=== PATIENT | male | born 1950 | race Caucasian/White ===

== ENCOUNTER 2017-07-12 03:17 | Observation (INO) | payer MEDICARE ==
[2017-07-12 03:56] LABS: #Basophils 0.1 thou/uL (0.0-0.2); #Eosinphils 0.3 thou/uL (0.0-0.7); #Lymphocytes 2.6 thou/uL (1.20-3.40); #Monocytes 1.2 thou/uL (0.11-0.59); #Neutrophils 6.1 thou/uL (1.40-6.50); %Basophils 0.6 % (0.0-1.0); %Eosinophils 2.5 % (0.0-10.0); %Lymphocytes 25.7 % (21.0-51.0); %Monocytes 11.6 % (0.0-10.0); Hematocrit 39.5 % (42.0-52.0); Mean Platelet Volume 8.4 fL (7.4-10.4); Red Blood Cell (RBC) Count 3.79 mill/uL (4.70-6.10); White Blood Cell (WBC) Count 10.2 thou/uL (4.8-10.8)
[2017-07-12 04:01] LABS: ALT (SGPT) 10 U/L (8-55); AST (SGOT) 18 U/L (5-34); Alkaline Phosphatase 123 U/L (40-150); Anion Gap 11 mmol/L (10-20); BUN (Urea Nitrogen) 27 mg/dL (8.4-25.7); Bilirubin, Total 0.5 mg/dL (0.2-1.2); CK (CPK) 124 U/L (30-200); Calc. Creatinine Clearance 0 mL/min (70-130); Calcium 8.9 mg/dL (7.8-10.44); Carbon Dioxide 26 mmol/L (23-31); Chloride 106 mmol/L (98-107); Estimated GFR-MDRD 27; Globulin 2.8 g/dL (2.4-3.5); Protein, Total 6.6 g/dL (5.8-8.1)
[2017-07-12 04:05] LABS: Troponin I Less than 0.010 ng/mL (< 0.028)
--- NOTE | 2017-07-12 06:48 | HP ---
PRIMARY CARE PHYSICIAN: Alcira Capellan, Family Nurse Practitioner. REASON FOR ADMISSION: Chronic obstructive pulmonary disease exacerbation. HISTORY OF PRESENT ILLNESS: A 66-year-old male with a history of COPD as well as ongoing tobacco ab use disorder who came to the emergency room with gradually worsening shortness of breath. Patient r eports that for the last 3 days, he has increasing shortness of breath. He has nasal congestion and he was feeling chest congestion. He was having cough productive of yellowish white sputum. He den ies any hemoptysis. He was also hurting all over his body. He denies any fever. He denies any flu -like illness. He denies any sick exposure. His symptoms the day by day getting worse and last nig ht, he was not able to breathe at all. He was not able to take deep breath through his nose and his nose was stuffed up and he was also feeling chest tightness because of difficulty breathing. He wa s not able to lie down in his bed and that is why he called paramedics and paramedics brought him to the emergency room. In the emergency room, this patient appeared in mild respiratory distress. Paramedics gave him Solu -Medrol 125 mg and subsequently in the emergency room, patient has received aspirin. Patient denies any exertional chest pain, palpitation. The patient denies any constipation, diarrhea, or urinary tract infection symptoms. REVIEW OF SYSTEMS: The following complete review of systems was negative, unless otherwise mentione d in the HPI or below: Constitutional: Weight loss or gain, ability to conduct usual activities. Skin: Rash, itching. Eyes: Double vision, pain. ENT/Mouth: Nose bleeding, neck stiffness, pain, tenderness. Cardiovascular: Palpitations, dyspnea on exertion, orthopnea. Respiratory: Shortness of breath, wheezing, cough, hemoptysis, fever or night sweats. Gastrointestinal: Poor appetite, abdominal pain, heartburn, nausea, vomiting, constipation, or diar timo. Genitourinary: Urgency, frequency, dysuria, nocturia. Musculoskeletal: Pain, swelling. Neurologic/Psychiatric: Anxiety, depression. Allergy/Immunologic: Skin rash, bleeding tendency. Please see my HPI for pertinent positives and negatives. All other review of system reviewed and ne gative except as mentioned in the HPI. PAST MEDICAL HISTORY: Hypertension, seizure disorder, history of sleep apnea required uvulectomy, g astroesophageal reflux disease, history of stroke in 2006 that led to visual problem in the right ey e, history of renal cell carcinoma required right nephrectomy, coronary artery disease, chronic obst ructive pulmonary disease, ongoing tobacco abuse disorder, dyslipidemia, systemic lupus erythematos us, peripheral neuropathy. PAST PSYCHIATRIC HISTORY: Anxiety, depression. PAST SURGICAL HISTORY: Pacemaker/AICD placement, appendicectomy, right nephrectomy, cardiac cathete rization, uvulectomy for sleep apnea, surgery for deviated nasal septum. ALLERGIES: SULFA DRUGS and PENICILLIN. SOCIAL HISTORY: Patient is an active smoker about 1 pack per day. He denies any alcohol abuse. He denies any other illicit drug abuse. He lives with his , daughter, and 4 grandkids. FAMILY HISTORY: Positive for diabetes, heart disease among several family members. EMERGENCY ROOM COURSE: Patient is given aspirin and paramedics gave him Solu-Medrol 125 mg. CURRENT HOME MEDICATIONS: Albuterol nebulization 4 times daily, Symbicort 2 puff inhalation b.i.d., Valsartan 80 mg p.o. daily, Keppra 500 mg p.o. b.i.d., Plavix 75 mg p.o. daily, Dilantin 200 mg twi ce daily, Cymbalta 30 mg p.o. twice daily. PHYSICAL EXAMINATION: VITAL SIGNS: On arrival, blood pressure 147/86, pulse 71, respiratory rate 22, temperature 98.0, sa turation 95% on room air, weight 91.17 kilograms. GENERAL: Patient is currently alert, awake, no obvious acute distress. HEAD: Normocephalic, atraumatic. EYES: Pupils round, reactive to light. Extraocular muscles intact. ENT: Stuffy nose with clear discharge. No pharyngeal erythema, no exudate, ear normal. NECK: No JVD, no thyromegaly, no carotid bruits. LUNGS: Air entry reduced both sides. No obvious rhonchi or wheeze. No accessory muscles of respir ation in use. CARDIAC: S1, S2 regular without any murmur. ABDOMEN: Soft, bowel sounds present, nontender, nondistended. No organomegaly, no mass, no suprapu bic tenderness. BACK: Unremarkable, no CVA tenderness. EXTREMITIES: Upper extremity: Passive movement of all joints are normal. Lower extremities: No e clau. Good peripheral pulsation. SKIN: No skin rash. HEMATOLOGICAL: No lymphadenopathy. PSYCHIATRIC: Normal affect. NEUROLOGIC: Nonfocal examination. SIGNIFICANT LABORATORY DATA: EKG showing pacemaker rhythm, right bundle branch block pattern. Ches t x-ray based on my review, no pneumonia, no acute cardiopulmonary process. CBC: WBC 10.2, hemoglo bin 12.9, MCV 104.0, platelets 145. BMP shows sodium 139, potassium 4.0, chloride 106, carbon dioxi de 26, BUN 27, creatinine 2.42, glucose 119, calcium 8.9. LFTs: AST 18, ALT 10, alkaline phosphata se 123, albumin 3.8, CK 124, CK-MB 1.9, troponin I less than 0.010. BNP 98.1. ASSESSMENT AND PLAN: 1. Chronic obstructive pulmonary disease exacerbation. This patient has dyspnea worsening for the last 3 days and last night he had very bad episode. He has chronic obstructive pulmonary disease hi story and he has ongoing tobacco abuse disorder. He also suffering from viral infection. At this p oint, patient will require DuoNeb therapy q.6 hours, Solu-Medrol 40 mg IV q.6 hourly, Mucinex 600 mg twice daily, Claritin 10 mg p.o. daily, empiric antibiotic therapy with Levaquin 250 mg IV daily. We will monitor his oxygen saturation. Smoking cessation counseling given. 2. Chest discomfort/chest tightness, likely related with his chronic obstructive pulmonary disease flare up, but we will do 3 sets of cardiac enzymes to rule out acute coronary syndrome. 3. Tobacco abuse disorder. Smoking cessation counseling given. We will offer nicotine replacement therapy while in hospital. 4. Seizure disorder. We will continue Keppra 500 mg twice daily and Dilantin 200 mg twice daily. 5. Hypertension. We will continue Valsartan 80 mg p.o. daily. 6. Anxiety and depression. We will continue Cymbalta 30 mg twice daily. 7. Coronary artery disease/history of cerebrovascular accident. We will continue Plavix 75 mg p.o. daily. 8. Chronic kidney disease stage 4. Patient has gradually worsening renal insufficiency. We will a void nephrotoxic agents and we will repeat BMP tomorrow. 9. Anemia with macrocytosis. We will start folic acid and vitamin B12 therapy. 10. Deep venous thrombosis prophylaxis not needed because we are expecting discharge in 24-48 hours . 11. Allergic rhinitis. We will start Flonase nasal spray twice daily. 12. Code status: The patient is FULL CODE. The patient's is surrogate decision maker. Disposition and plan based on clinical course. Plan of care discussed with the patient in detail.
[2017-07-12] MEDS ORDERED: Milk Of Magnesia 30 ML UDCUP PO PRN (07:08)
[2017-07-12] MEDS ORDERED: Sodium Chloride 0.65% Nasal 44 ML BOT EA NARE PRN (07:08)
[2017-07-12] MEDS ORDERED: Zolpidem Tartrate 5 MG TAB PO PRN (07:08)
[2017-07-12] MEDS ORDERED: Acetaminophen 325 MG TAB PO PRN (07:08)
[2017-07-12] MEDS ORDERED: Artificial Tears 18 DROP/0.9 ML EA EYE PRN (07:08)
[2017-07-12] MEDS ORDERED: Eucerin (Mineral Oil/Petrolatum,White) 30 gm Jar TOP PRN (07:08)
[2017-07-12] MEDS ORDERED: Ondansetron HCl/PF 4 MG/2 ML Vial IVP PRN (07:08)
[2017-07-12] MEDS ORDERED: Ondansetron ODT 4 MG TAB PO PRN (07:08)
[2017-07-12] MEDS ORDERED: Mag-Al 1200 mg/1200 mg/30 ML UDCUP PO PRN (07:08)
[2017-07-12] MEDS ORDERED: Loperamide HCl 2 MG CAP PO PRN (07:08)
[2017-07-12] MEDS ORDERED: Senokot 8.6 MG TAB PO PRN (07:08)
[2017-07-12] MEDS ORDERED: Chloraseptic Spray 180 ml Bottle PO PRN (07:08)
[2017-07-12] MEDS ORDERED: HYDROcodone/Acetaminophen 5/325 mg Tablet PO PRN (07:08)
[2017-07-12] MEDS ORDERED: hydrALAZINE 20 MG/ML VIAL SLOW IVP PRN (07:08)
[2017-07-12] MEDS ORDERED: Diabetic Tussin 200 MG/10 ML UDCUP PO PRN (07:08)
[2017-07-12] MEDS ORDERED: Nitroglycerin 0.4 MG TAB (25 Tab Bottle) SL PRN (07:08)
[2017-07-12] MEDS ORDERED: Benzonatate 100 MG CAP PO PRN (07:08)
[2017-07-12 07:09] VITALS: BMI 27.7
[2017-07-12 08:10] LABS: Troponin I Less than 0.010 ng/mL (< 0.028)
[2017-07-12] MEDS ORDERED: FLU VACC TS2017-18 (>65YR) 0.5 ML SYRINGE IM ONE (09:00)
[2017-07-12] MEDS: Levofloxacin/D5W 250 MG in Premix Bag 1 BAG IVPB SCH (09:02)
[2017-07-12] MEDS: Folic Acid 1 MG TAB PO SCH (09:08)
[2017-07-12] MEDS: Clopidogrel Bisulfate 75 MG TAB PO SCH (09:08)
[2017-07-12] MEDS: guaiFENesin ER 600 MG TAB PO SCH ×2 (09:08→20:00)
[2017-07-12] MEDS: Cyanocobalamin (Vitamin B-12) 1,000 MCG TAB PO SCH (09:08)
[2017-07-12] MEDS: Loratadine 10 MG TAB PO SCH (09:09)
[2017-07-12] MEDS: Phenytoin 50 MG Chewable Tablet PO SCH ×2 (09:09→20:00)
[2017-07-12] MEDS: levETIRAcetam 500 MG TAB PO SCH ×2 (09:09→20:00)
[2017-07-12] MEDS: Valsartan 80 MG TAB PO SCH (09:10)
--- NOTE | 2017-07-12 09:26 | RAD ---
CHEST 1 VIEW: HISTORY: Cough and dyspnea. COMPARISON: 06/24/17. FINDINGS: Cardiac silhouette is magnified by projection. Pulmonary vasculature is unremarkable. Mediastinum is midline with a dual-lead left subclavian cardiac electronic device. There is no lobar consolidat ion or evidence of pneumothorax. IMPRESSION: No active cardiopulmonary abnormalities are demonstrated. POS: PAPA
--- NOTE | 2017-07-12 10:18 | PDOC.EVN ---
Event Note - Event Note Event Note: Pt seen and examined. chart reviewed in detail. Admitted earlier today for Ac resp distress due to COPD exacerbation. reports feeling better.some stuffy nose. VSS. CTA B/l w/o wheezing. decreased air entry both sides. RRR labs,meds reviewed. Influenza test negative Plan-cont nebs.Cont IV steroids,empiric antibiotics. Monitor renal function. Cont home meds as started. reviewed.
[2017-07-12 10:26] LABS: Troponin I Less than 0.010 ng/mL (< 0.028)
[2017-07-12] MEDS: Fluticasone Propionate Nasal Spray 16 gm Bottle NASAL SCH ×2 (11:32→20:00)
[2017-07-12] MEDS ORDERED: methylPREDNISolone Sod Succ/PF 125 MG/2 ML VIAL IVP SCH (12:00)
[2017-07-12] MEDS ORDERED: Sterile Water 10 ML ONE (17:40)
[2017-07-12] MEDS: Mometasone/Formoterol 120 PUFF INHALER INH SCH (20:22)
[2017-07-12] MEDS ORDERED: DULOXETINE HCL 30 MG PO SCH (21:00)
[2017-07-13 04:38] LABS: #Lymphocytes 0.8 thou/uL (1.20-3.40); #Monocytes 0.5 thou/uL (0.11-0.59); #Neutrophils 7.4 thou/uL (1.40-6.50); %Basophils 0.2 % (0.0-1.0); %Eosinophils 0.1 % (0.0-10.0); %Monocytes 5.9 % (0.0-10.0); Hematocrit 38.6 % (42.0-52.0); Mean Platelet Volume 8.9 fL (7.4-10.4); Red Blood Cell (RBC) Count 3.66 mill/uL (4.70-6.10); White Blood Cell (WBC) Count 8.8 thou/uL (4.8-10.8)
[2017-07-13 04:39] LABS: Anion Gap 8 mmol/L (10-20); BUN (Urea Nitrogen) 32 mg/dL (8.4-25.7); BUN/Creatinine Ratio 15.92; Calc. Creatinine Clearance 46 mL/min (70-130); Calcium 8.9 mg/dL (7.8-10.44); Carbon Dioxide 28 mmol/L (23-31); Chloride 107 mmol/L (98-107); Estimated GFR-MDRD 33; Phosphorus 3.9 mg/dL (2.3-4.7)
[2017-07-13] MEDS: Mometasone/Formoterol 120 PUFF INHALER INH SCH (06:42)
[2017-07-13 08:01] VITALS: BP 150/74; TEMP 97.8
[2017-07-13] MEDS: Fluticasone Propionate Nasal Spray 16 gm Bottle NASAL SCH (09:01)
[2017-07-13] MEDS: Levofloxacin/D5W 250 MG in Premix Bag 1 BAG IVPB SCH (09:02)
[2017-07-13] MEDS: Phenytoin 50 MG Chewable Tablet PO SCH (09:02)
[2017-07-13] MEDS: Cyanocobalamin (Vitamin B-12) 1,000 MCG TAB PO SCH (09:03)
[2017-07-13] MEDS: Loratadine 10 MG TAB PO SCH (09:04)
[2017-07-13] MEDS: Clopidogrel Bisulfate 75 MG TAB PO SCH (09:04)
[2017-07-13] MEDS: Folic Acid 1 MG TAB PO SCH (09:04)
[2017-07-13] MEDS: Valsartan 80 MG TAB PO SCH (09:04)
[2017-07-13] MEDS: guaiFENesin ER 600 MG TAB PO SCH (09:04)
[2017-07-13] MEDS: levETIRAcetam 500 MG TAB PO SCH (09:04)
--- NOTE | 2017-07-13 10:46 | DIS ---
TRANSFER OF CARE NOTE PRIMARY CARE PROVIDER: Alcira López DATE OF ADMISSION: 07/12/2017 DATE OF DISCHARGE: 07/13/2017 DISCHARGE DISPOSITION: Home. FINAL DIAGNOSES: 1. Chronic obstructive pulmonary disease with mild exacerbation. 2. Seizure disorder. 3. Hypertension. 4. Chronic kidney disease stage 4. The patient admitted with medications new Z-ADRYAN, Levetiracetam 500 mg twice a day, valsartan 80 mg a day, Cymbalta 30 mg twice a day, Plavix 75 mg a day, Dilantin 200 mg twice a day. ALLERGIES: SULFA and PENICILLIN. PENDING AT THE TIME OF DISCHARGE: Nothing. CODE STATUS: Full. HOSPITAL COURSE: The patient admitted with some shortness of breath, nasal congestion, chest conges tion. His chest x-ray reveals pacemaker in the left upper quadrant, some mild hyperinflation, no ca rdiomegaly, no infiltrate. LABORATORY: His creatinine was 2.42 and 2.01. Electrolytes otherwise balanced. Cardiac enzymes no rmal x3. White count was normal, hemoglobin was mildly low at 12.9 and 12.7. I saw the patient this morning, he stated that he blew a bunch of yellow stuff out of his nose, felt fine. He stated his doctor normally gives him a Z-ADRYAN and he does well. I examined him, his vital signs were stable. His O2 saturation was 91 on room air. His chest was hyperresonant with decreas ed breath sounds, but no focal findings. He is being discharged home on Z-ADRYAN. It has been recomme nded he follow up with Alcira López in 1 week. CONSULTATION: No consultations. PROCEDURES: No procedures.
[2017-07-15] MEDS ORDERED: Sodium Chloride 0.65% Nasal 44 ML BOT EA NARE PRN (07:56)
== END 2017-07-13 11:57 | disposition home or self-care (01) ==
LOC: ERS 03:17 → 2SW 06:59
PROVIDERS: ADMIT Internal Medicine; ATTEND Internal Medicine
DX: J44.1 Chronic obstructive pulmonary disease with (acute) exacerbation (principal); G40.909 Epilepsy, unspecified, not intractable, without status epilepticus; I12.9 Hypertensive chronic kidney disease with stage 1 through stage 4 chronic kidney disease, or unspecified chronic kidney disease; N18.4 Chronic kidney disease, stage 4 (severe); K21.9 Gastro-esophageal reflux disease without esophagitis; I69.398 Other sequelae of cerebral infarction; H53.9 Unspecified visual disturbance; E78.5 Hyperlipidemia, unspecified; G62.9 Polyneuropathy, unspecified; M32.9 Systemic lupus erythematosus, unspecified; F41.9 Anxiety disorder, unspecified; F32.9 Major depressive disorder, single episode, unspecified; F17.210 Nicotine dependence, cigarettes, uncomplicated; Z79.02 Long term (current) use of antithrombotics/antiplatelets; Z79.899 Other long term (current) drug therapy; Z88.0 Allergy status to penicillin; Z88.2 Allergy status to sulfonamides; Z95.0 Presence of cardiac pacemaker; Z90.89 Acquired absence of other organs; Z90.5 Acquired absence of kidney; Z90.49 Acquired absence of other specified parts of digestive tract; Z98.890 Other specified postprocedural states; Z85.528 Personal history of other malignant neoplasm of kidney
CPT/HCPCS: 36415; 71010; 80053; 80069; 82550; 82553; 83880; 84484; 85025; 93005; 94640; 94664; 94760; A4216; J1956; J2920; J2930; J7620

== ENCOUNTER 2017-07-14 06:31 | Inpatient (IN) | payer MEDICARE ==
[2017-07-14 06:57] LABS: #Basophils 0.1 thou/uL (0.0-0.2); #Eosinphils 0.3 thou/uL (0.0-0.7); #Lymphocytes 3.4 thou/uL (1.20-3.40); #Monocytes 0.8 thou/uL (0.11-0.59); #Neutrophils 5.9 thou/uL (1.40-6.50); %Basophils 0.6 % (0.0-1.0); %Eosinophils 2.9 % (0.0-10.0); %Lymphocytes 32.1 % (21.0-51.0); %Monocytes 7.8 % (0.0-10.0); Mean Platelet Volume 8.4 fL (7.4-10.4); Red Blood Cell (RBC) Count 3.82 mill/uL (4.70-6.10); White Blood Cell (WBC) Count 10.4 thou/uL (4.8-10.8)
[2017-07-14] MEDS ORDERED: Albuterol Sulfate 2.5 mg/0.5 ml Neb ONE ×4 (07:06→07:07)
[2017-07-14 07:21] LABS: ALT (SGPT) 18 U/L (8-55); AST (SGOT) 29 U/L (5-34); Alkaline Phosphatase 121 U/L (40-150); Anion Gap 11 mmol/L (10-20); BUN (Urea Nitrogen) 29 mg/dL (8.4-25.7); Bilirubin, Total 0.4 mg/dL (0.2-1.2); Calc. Creatinine Clearance 0 mL/min (70-130); Calcium 8.9 mg/dL (7.8-10.44); Carbon Dioxide 26 mmol/L (23-31); Chloride 109 mmol/L (98-107); Estimated GFR-MDRD 32; Protein, Total 6.7 g/dL (5.8-8.1)
--- NOTE | 2017-07-14 11:02 | RAD ---
CHEST ONE VIEW: History: Dyspnea. Comparison: 07-12-17 FINDINGS: Lungs are clear. No pneumothorax or effusion. Cardiac silhouette and mediastinal contours are simila r. Cardiac leads are similar. IMPRESSION: No acute intrathoracic abnormality. No significant change. POS: H
--- NOTE | 2017-07-14 12:02 | HP ---
PRIMARY CARE PHYSICIAN: ELLEN Barbosa REASON FOR ADMISSION: Acute hypoxic respiratory failure, COPD exacerbation. HISTORY OF PRESENT ILLNESS: A 66-year-old male who has underlying history of severe COPD as well as ongoing tobacco abuse disorder who was recently admitted in our hospital on 07/12/2017. At that ti me, he presented to emergency room with exactly similar symptoms with increasing shortness of breath , cough productive of yellowish white sputum and nasal congestion. The patient was admitted in hosp ital and he was treated with DuoNeb therapy, Dulera, Solu-Medrol, Mucinex, and patient was discharge d on 07/13/2017 with Z-Alen. The patient felt better while in hospital. As per discharge summary, t he patient's room air oxygen saturation was 91%. Patient was given empiric antibiotic therapy with Z-ALEN and he was discharged yesterday. The patient felt little bit better, but during night time, h is symptoms gotten worse and this morning he was having more congestion. He was not feeling normal and he was feeling as usual when he presented on 07/12/2017 in the emergency room. Patient reports that he has now cough productive of greenish yellow sputum and he still feels nasal congestion and he is not able to take deep breath. He is having cough with deep breathing. He mini es any pleuritic chest pain, but he feels that his chest is congested. He is subjectively feverish but he does not have any fever in the emergency room. Paramedics gave him Solu-Medrol 125 mg. He was hypoxic as per paramedics. In the emergency room, h e was feeling little bit better and ER physician tried to discharge him home, but his oxygen saturat ion was 85% on room air and that is why road test was not performed and patient was kept in hospital for further treatment. Patient currently not smoking since the previous hospitalization, but he has otherwise history of he dina smoking. He denies any seizure. He denies any palpitation. He denies any dizziness or syncope . He denies any nausea, vomiting, diarrhea or urinary tract infection symptoms. REVIEW OF SYSTEMS: The following complete review of systems was negative, unless otherwise mentione d in the HPI or below: Constitutional: Weight loss or gain, ability to conduct usual activities. Skin: Rash, itching. Eyes: Double vision, pain. ENT/Mouth: Nose bleeding, neck stiffness, pain, tenderness. Cardiovascular: Palpitations, dyspnea on exertion, orthopnea. Respiratory: Shortness of breath, wheezing, cough, hemoptysis, fever or night sweats. Gastrointestinal: Poor appetite, abdominal pain, heartburn, nausea, vomiting, constipation, or diar timo. Genitourinary: Urgency, frequency, dysuria, nocturia. Musculoskeletal: Pain, swelling. Neurologic/Psychiatric: Anxiety, depression. Allergy/Immunologic: Skin rash, bleeding tendency. Please see my HPI for pertinent positive and negative. All other review of systems reviewed and neg ative except as mentioned in the HPI. PAST MEDICAL HISTORY: Severe COPD; hypertension; seizure disorder; history of sleep apnea, required uvulectomy; gastroesophageal reflux disease; history of stroke in 2006 that led to visual problems in the right eye; history of renal cell carcinoma required right nephrectomy; coronary artery diseas e; ongoing tobacco abuse disorder; dyslipidemia; history of lupus; peripheral neuropathy; chronic ki dney disease stage 4. PAST PSYCHIATRIC HISTORY: Anxiety and depression. PAST SURGICAL HISTORY: Pacemaker/AICD placement, appendicectomy, right nephrectomy, cardiac cathete rization, uvulectomy for sleep apnea, surgery for deviated nasal septum. ALLERGIES: SULFA DRUGS and PENICILLIN. SOCIAL HISTORY: The patient is active smoker about 1 pack per day. He denies any alcohol abuse. H e denies any other illicit drug abuse. He is and lives with his . FAMILY HISTORY: Diabetes, hypertension, and heart disease runs among several family members. EMERGENCY ROOM COURSE: Patient was given Solu-Medrol by paramedics. The patient has given DuoNeb t herapy in the emergency room. CURRENT HOME MEDICATIONS: The patient was discharged home on following medications; Z-ALEN as direct ed, Plavix 75 mg p.o. daily, Cymbalta 30 mg p.o. b.i.d., Keppra 500 mg p.o. b.i.d., Dilantin 200 mg p.o. b.i.d., valsartan 80 mg p.o. daily. PHYSICAL EXAMINATION: VITAL SIGNS: On arrival, blood pressure 171/87, pulse 67, respiratory rate 26, temperature 98.7, sa turation variable from 85% on room air to 92% on oxygen. GENERAL: Patient is currently alert, awake, appears in mild distress. HEAD: Normocephalic, atraumatic. EYES: Pupils round, reactive to light. Extraocular muscle intact. ENT: The patient does have purulent nasal discharge with nasal wall erythema in both nares. Undercollar Maker al ear is normal. Ear examination is normal. Throat examination is normal, no pharyngeal erythema, no exudate. LUNGS: Decreased air entry both sides. No accessory muscles of respiration in use. No wheezing, n o rhonchi, silent chest. CARDIAC: S1, S2 regular without any murmur. ABDOMEN: Soft, bowel sounds present, nontender, nondistended. No organomegaly, no mass, no suprapu bic tenderness. BACK: Examination unremarkable, no CVA tenderness. EXTREMITIES: Upper extremity passive movements of all joints are normal. Lower extremity, no edema . Good peripheral pulsation. SKIN: No skin rash. HEMATOLOGICAL SYSTEM: No lymphadenopathy. NEUROLOGIC: Nonfocal examination. The patient moves all 4 limbs. Plantar bilateral flexor. PSYCHIATRIC: Normal affect. IMAGING AND LABORATORY DATA: 1. EKG showing pacemaker rhythm, incomplete right bundle branch block pattern. Chest x-ray based o n my review, COPD changes, but no acute cardiopulmonary process. 2. CBC: WBC 10.4, hemoglobin 13.1, MCV 105.0, platelets 155. BMP: Sodium 142, potassium 3.9, chl oride 109, carbon dioxide 26, BUN 29, creatinine 2.09, glucose 114, calcium is 8.9. 3. LFT: AST 29, ALT 18, alkaline phosphatase 121, albumin 3.7. ASSESSMENT AND PLAN/IMPRESSION: 1. Acute hypoxic respiratory failure due to underlying severe chronic obstructive pulmonary disease exacerbation, failed outpatient therapy. This patient is saturating 85% in the emergency room when we tried to discharge him from ER and he is still not feeling up to his normal. He was admitted in our hospital as observation status and despite observation treatment for 24-48 hours in our hospita l, he has no clinical improvement, and that is why he meets inpatient criteria for admission. Quinton mascorro this admission, our goal is to assess his home oxygen assessment. We are hoping that once we alexa t underlying chronic obstructive pulmonary disease well, then probably he may not need home oxygen t herapy, but in case if he needs, then will arrange home oxygen therapy. 2. Chronic obstructive pulmonary disease exacerbation, failed outpatient therapy. He was in observ ation status and he was treated optimally for chronic obstructive pulmonary disease while in hospita l and he was given outpatient treatment, but he has no clinical improvement at this point. He has o ngoing tobacco abuse disorder so far. At this point, I will try to treat him in the hospital under inpatient status with Solu-Medrol 40 mg IV q.6 hourly, Mucinex 600 mg 3 times daily, DuoNeb therapy every 4 hourly and p.r.n., Dulera 2 puffs inhalation b.i.d., empiric antibiotic therapy with azithro mycin 500 mg IV daily. 3. Macrocytosis. We will continue folic acid and vitamin B12 therapy while in hospital. His macro cytosis may be related with Dilantin therapy. 4. Anxiety and depression. We will continue Cymbalta 30 mg p.o. b.i.d. 5. Seizure disorder. We will continue Keppra 500 mg p.o. b.i.d. and Dilantin 200 mg p.o. b.i.d. 6. Hypertension. We will continue valsartan 80 mg p.o. daily and will use hydralazine and clonidin e on p.r.n. basis. 7. Chronic kidney disease stage 3. Patient's renal function is stable. At this point, we will akbar id nephrotoxin therapy, likely related with solitary kidney disease. 8. Tobacco abuse disorder. Smoking cessation counseling given. Healthy lifestyle measures discuss ed with the patient. 9. History of cerebrovascular accident. Currently, problem is stable. We will continue Plavix 75 mg p.o. daily. 10. Deep venous thrombosis prophylaxis. Lovenox 30 mg subcu daily. 11. Gastrointestinal prophylaxis, Protonix 40 mg p.o. daily. 12. Rhinitis. We will add Flonase nasal spray b.i.d. CODE STATUS: The patient is FULL CODE. The patient's is surrogate decision maker. Disposition plan based on clinical course. We are expecting patient's stay in hospital more than 2 midnights. Plan of care discussed with the patient in detail.
[2017-07-14] MEDS ORDERED: Artificial Tears 18 DROP/0.9 ML EA EYE PRN (12:43)
[2017-07-14] MEDS ORDERED: Ondansetron HCl/PF 4 MG/2 ML Vial IVP PRN (12:43)
[2017-07-14] MEDS ORDERED: Ondansetron ODT 4 MG TAB PO PRN (12:43)
[2017-07-14] MEDS ORDERED: Senokot 8.6 MG TAB PO PRN (12:43)
[2017-07-14] MEDS ORDERED: Diabetic Tussin 200 MG/10 ML UDCUP PO PRN (12:43)
[2017-07-14] MEDS ORDERED: cloNIDine HCl 0.1 MG TAB PO PRN (12:43)
[2017-07-14] MEDS ORDERED: Benzonatate 100 MG CAP PO PRN (12:43)
[2017-07-14] MEDS ORDERED: Loratadine 10 MG TAB PO PRN (12:43)
[2017-07-14] MEDS ORDERED: Acetaminophen 325 MG TAB PO PRN (12:43)
[2017-07-14] MEDS ORDERED: Sodium Chloride 0.65% Nasal 44 ML BOT EA NARE PRN (12:43)
[2017-07-14] MEDS ORDERED: Eucerin (Mineral Oil/Petrolatum,White) 30 gm Jar TOP PRN (12:43)
[2017-07-14] MEDS ORDERED: Mag-Al 1200 mg/1200 mg/30 ML UDCUP PO PRN (12:43)
[2017-07-14] MEDS ORDERED: Chloraseptic Spray 180 ml Bottle PO PRN (12:43)
[2017-07-14] MEDS ORDERED: Zolpidem Tartrate 5 MG TAB PO PRN (12:43)
[2017-07-14] MEDS ORDERED: Loperamide HCl 2 MG CAP PO PRN (12:43)
[2017-07-14] MEDS ORDERED: Milk Of Magnesia 30 ML UDCUP PO PRN (12:43)
[2017-07-14] MEDS ORDERED: HYDROcodone/Acetaminophen 5/325 mg Tablet PO PRN (12:43)
[2017-07-14 12:46] VITALS: BMI 26.4
[2017-07-14] MEDS: Azithromycin 500 MG in Sodium Chloride 0.9% 250 ML 250 ML IVPB SCH (13:16)
[2017-07-14] MEDS: guaiFENesin ER 600 MG TAB PO SCH ×2 (15:32→20:16)
[2017-07-14 18:34] LABS: Bilirubin Negative (Negative); Blood, Urine Negative (Negative); Glucose, Urine (Dipstick) Negative (Negative); Ketone, Urine Negative (Negative); Nitrite Negative (Negative); Protein, Urine (Dipstick) 30 mg/dL (Neg-Trace); Urobilinogen 0.2 mg/dL (0.2-1.0)
[2017-07-14 18:37] LABS: Bacteria/HPF None Seen HPF (None Seen); Hyaline Casts/LPF 0-3 HYALINE CAST LPF (0-3 Hyaline); Squamous Epithelial None Seen HPF (0-3); WBC/HPF 0-3 HPF (0-3)
[2017-07-14] MEDS: Mometasone/Formoterol 120 PUFF INHALER INH SCH (18:59)
[2017-07-14 19:10] LABS: Yeast-All Forms None Seen HPF (None Seen)
[2017-07-14] MEDS: Nicotine 21 MG PATCH TD SCH (20:16)
[2017-07-14] MEDS: levETIRAcetam 500 MG TAB PO SCH (20:16)
[2017-07-14] MEDS ORDERED: FLU VACC TS2017-18 (>65YR) 0.5 ML SYRINGE IM ONE (21:00)
[2017-07-15 05:43] LABS: #Lymphocytes 0.9 thou/uL (1.20-3.40); #Monocytes 0.4 thou/uL (0.11-0.59); #Neutrophils 5.9 thou/uL (1.40-6.50); %Basophils 0.2 % (0.0-1.0); %Eosinophils 0.3 % (0.0-10.0); %Lymphocytes 12.8 % (21.0-51.0); Hematocrit 38.7 % (42.0-52.0); Mean Platelet Volume 9.2 fL (7.4-10.4); Red Blood Cell (RBC) Count 3.66 mill/uL (4.70-6.10); White Blood Cell (WBC) Count 7.3 thou/uL (4.8-10.8)
[2017-07-15 05:52] LABS: Anion Gap 10 mmol/L (10-20); BUN (Urea Nitrogen) 31 mg/dL (8.4-25.7); BUN/Creatinine Ratio 14.98; Calc. Creatinine Clearance 43 mL/min (70-130); Carbon Dioxide 24 mmol/L (23-31); Chloride 109 mmol/L (98-107); Estimated GFR-MDRD 32; Phosphorus 3.7 mg/dL (2.3-4.7)
[2017-07-15] MEDS: Mometasone/Formoterol 120 PUFF INHALER INH SCH ×2 (06:57→18:49)
[2017-07-15] MEDS: Folic Acid 1 MG TAB PO SCH (09:03)
[2017-07-15] MEDS: guaiFENesin ER 600 MG TAB PO SCH ×3 (09:03→20:31)
[2017-07-15] MEDS: Cyanocobalamin (Vitamin B-12) 1,000 MCG TAB PO SCH (09:03)
[2017-07-15] MEDS: Clopidogrel Bisulfate 75 MG TAB PO SCH (09:03)
[2017-07-15] MEDS: Valsartan 80 MG TAB PO SCH (09:03)
[2017-07-15] MEDS: levETIRAcetam 500 MG TAB PO SCH ×2 (09:03→20:31)
[2017-07-15] MEDS: Enoxaparin Sodium 30 MG/0.3 ML SYRINGE SC SCH (09:04)
[2017-07-15] MEDS: Azithromycin 500 MG in Sodium Chloride 0.9% 250 ML 250 ML IVPB SCH (13:30)
[2017-07-15] MEDS: Fluticasone Propionate Nasal Spray 16 gm Bottle NASAL SCH (14:43)
--- NOTE | 2017-07-15 14:54 | PDOC.PN ---
- Subjective Encounter Start Date: 07/15/17 Encounter Start Time: 12:00 Subjective: breathing better - Objective Resuscitation Status: Resuscitation Status FULL:Full Resuscitation MAR Reviewed: Yes Vital Signs & Weight: Vital Signs (12 hours) Temp Pulse Resp BP Pulse Ox 07/15/17 14:11 69 15 93 L 07/15/17 10:46 98.7 F 81 18 145/80 H 95 07/15/17 10:28 62 16 93 L 07/15/17 07:17 98.2 F 67 18 150/81 H 93 L 07/15/17 06:55 77 15 97 07/15/17 04:00 98 F 64 20 165/89 H 98 Weight Admit Weight 195 lb 6 oz Weight 195 lb I&O: 07/14/17 07/15/17 07/16/17 06:59 06:59 06:59 Intake Total 620 Balance 620 Result Diagrams: 07/15/17 04:51 07/15/17 04:51 Phys Exam - Physical Examination HEENT: PERRLA, moist MMs Neck: no JVD, supple Respiratory: no rales rhonchi++ Cardiovascular: RRR, no significant murmur Gastrointestinal: soft, non-tender Musculoskeletal: no edema, pulses present Neurological: non-focal, moves all 4 limbs Psychiatric: A&O x 3 Dx/Plan (1) COPD exacerbation Code(s): J44.1 - CHRONIC OBSTRUCTIVE PULMONARY DISEASE W (ACUTE) EXACERBATION Status: Acute (2) CKD (chronic kidney disease) stage 3, GFR 30-59 ml/min Status: Chronic (3) Cutaneous lupus erythematosus Code(s): L93.2 - OTHER LOCAL LUPUS ERYTHEMATOSUS Status: Chronic (4) HTN (hypertension) Code(s): I10 - ESSENTIAL (PRIMARY) HYPERTENSION Status: Chronic Qualifiers: Hypertension type: essential hypertension (5) History of CVA (cerebrovascular accident) Code(s): Z86.73 - PRSNL HX OF TIA (TIA), AND CEREB INFRC W/O RESID DEFICITS Status: Chronic (6) History of nephrectomy, unilateral Code(s): Z90.5 - ACQUIRED ABSENCE OF KIDNEY Status: Chronic (7) Seizure disorder Code(s): G40.909 - EPILEPSY, UNSP, NOT INTRACTABLE, WITHOUT STATUS EPILEPTICUS Status: Chronic - Plan is on duonebs, iv steroids and empiric z-pack -: to ambulate as tolerated -: renal function stabilizing -: counselled to quit smoking completely * . Review of Systems - Medications/Allergies Allergies/Adverse Reactions: Allergies Allergy/AdvReac Type Severity Reaction Status Date / Time Penicillins Allergy Verified 07/12/17 07:59 Sulfa (Sulfonamide Allergy Verified 07/12/17 07:59 Antibiotics) Medications: Current Medications Acetaminophen (Tylenol) 650 mg PO Q4H PRN PRN Reason: Headache/Fever or Pain Last Admin: 07/14/17 17:11 Dose: 650 mg Hydrocodone Bitart/Acetaminophen ([place] 5/325) 1 tab PO Q4H PRN PRN Reason: Moderate Pain (4-6) Al Hydroxide/Mg Hydroxide (Maalox) 30 ml PO Q6H PRN PRN Reason: Heartburn or Indigestion Albuterol/Ipratropium (Duoneb) 3 ml NEB [id number] [facility] Last Admin: 07/15/17 14:11 Dose: 3 ml Artificial Tears (Tears Naturale) 0 drop EA EYE PRN PRN PRN Reason: Dry Eyes Benzonatate (Tessalon) 100 mg PO Q4H PRN PRN Reason: Cough Clonidine HCl (Catapres) 0.1 mg PO Q4H PRN PRN Reason: Systolic BP > 180 Clopidogrel Bisulfate (Plavix) 75 mg PO DAILY [facility] Last Admin: 07/15/17 09:03 Dose: 75 mg Cyanocobalamin (Vitamin B-12) 1,000 mcg PO DAILY [facility] Last Admin: 07/15/17 09:03 Dose: 1,000 mcg Duloxetine HCl (Cymbalta) 30 mg PO BID [facility] Last Admin: 07/15/17 09:03 Dose: 30 mg Enoxaparin Sodium (Lovenox) 30 mg SC 0900 [facility] Last Admin: 07/15/17 09:04 Dose: 30 mg Fluticasone Propionate (Flonase Nasal [place]) 0 gm NASAL DAILY [facility] Last Admin: 07/15/17 14:43 Dose: 2 spr Folic Acid (Folvite) 1 mg PO DAILY [facility] Last Admin: 07/15/17 09:03 Dose: 1 mg Guaifenesin (Robitussin Sf) 200 mg PO Q4H PRN PRN Reason: Cough Guaifenesin (Mucinex) 600 mg PO TID [facility] Last Admin: 07/15/17 14:41 Dose: 600 mg Hydralazine HCl (Apresoline) 10 mg SLOW IVP Q4H PRN PRN Reason: Systolic BP > 180 Azithromycin 500 mg/ Sodium (Chloride) 250 mls @ 250 mls/hr IVPB Q24HR [facility] Last Admin: 07/14/17 13:16 Dose: 250 mls Levetiracetam (Keppra) 500 mg PO BID [facility] Last Admin: 07/15/17 09:03 Dose: 500 mg Loperamide HCl (Imodium) 2 mg PO PRN PRN PRN Reason: Diarrhea/Loose Stools Loratadine (Claritin) 10 mg PO DAILYPRN PRN PRN Reason: Sinus Symptoms Last Admin: 07/15/17 14:41 Dose: 10 mg Magnesium Hydroxide (Milk Of Magnesium) 30 ml PO DAILYPRN PRN PRN Reason: Constipation Methylprednisolone Sodium Succinate (Solu-Medrol) 40 mg IVP Q6HR [facility] Last Admin: 07/15/17 14:41 Dose: 40 mg Mineral Oil/White Petrolatum (Eucerin Cream) 0 gm TOP BIDPRN PRN PRN Reason: Dry Skin Mometasone Furoate/Formoterol Fumar (Dulera 200 Mcg/5 Mcg Inhaler) 2 puff INH BID-RT [facility] Last Admin: 07/15/17 06:57 Dose: 2 puff Nicotine (Nicoderm Patch) 21 mg TD Q24HR [facility] Last Admin: 07/14/17 20:16 Dose: 21 mg Ondansetron HCl (Zofran Odt) 4 mg PO Q6H PRN PRN Reason: Nausea/Vomiting Ondansetron HCl (Zofran) 4 mg IVP Q6H PRN PRN Reason: Nausea/Vomiting Pantoprazole Sodium (Protonix) 40 mg PO DAILY [facility] Last Admin: 07/15/17 09:03 Dose: 40 mg Phenol (Chloraseptic [place] 180 Ml Bot) 0 ml PO PRN PRN PRN Reason: Sore Throat Phenytoin Sodium (Dilantin Er) 200 mg PO BID [facility] Last Admin: 07/15/17 09:03 Dose: 200 mg Senna (Senokot) 2 tab PO HSPRN PRN PRN Reason: Constipation Sodium Chloride ([place] Nasal [place] 0.65%) 0 ml EA NARE QIDPRN PRN PRN Reason: Nasal Congestion Sodium Chloride (Flush - Normal Saline) 10 ml IVF Q12HR [facility] Last Admin: 07/15/17 09:04 Dose: 10 ml Sodium Chloride (Flush - Normal Saline) 10 ml IVF PRN PRN PRN Reason: Saline Flush Valsartan (Diovan) 80 mg PO DAILY [facility] Last Admin: 07/15/17 09:03 Dose: 80 mg Zolpidem Tartrate (Ambien) 5 mg PO HSPRN PRN PRN Reason: Insomnia
[2017-07-15] MEDS: Nicotine 21 MG PATCH TD SCH (20:32)
[2017-07-16] MEDS: Mometasone/Formoterol 120 PUFF INHALER INH SCH ×2 (07:08→19:09)
[2017-07-16 07:38] LABS: #Lymphocytes 1.1 thou/uL (1.20-3.40); #Monocytes 0.4 thou/uL (0.11-0.59); #Neutrophils 5.1 thou/uL (1.40-6.50); %Basophils 0.2 % (0.0-1.0); %Eosinophils 0.3 % (0.0-10.0); %Lymphocytes 16.5 % (21.0-51.0); %Monocytes 5.7 % (0.0-10.0); Mean Platelet Volume 8.9 fL (7.4-10.4); Red Blood Cell (RBC) Count 3.61 mill/uL (4.70-6.10); White Blood Cell (WBC) Count 6.5 thou/uL (4.8-10.8)
[2017-07-16 07:47] LABS: Anion Gap 10 mmol/L (10-20); BUN (Urea Nitrogen) 31 mg/dL (8.4-25.7); Calc. Creatinine Clearance 47 mL/min (70-130); Calcium 9.1 mg/dL (7.8-10.44); Carbon Dioxide 27 mmol/L (23-31); Chloride 109 mmol/L (98-107); Estimated GFR-MDRD 36
[2017-07-16] MEDS: Fluticasone Propionate Nasal Spray 16 gm Bottle NASAL SCH (08:32)
[2017-07-16] MEDS: Cefdinir 300 MG CAP PO SCH ×2 (08:33→20:13)
[2017-07-16] MEDS: Cyanocobalamin (Vitamin B-12) 1,000 MCG TAB PO SCH (08:33)
[2017-07-16] MEDS: Clopidogrel Bisulfate 75 MG TAB PO SCH (08:33)
[2017-07-16] MEDS: guaiFENesin ER 600 MG TAB PO SCH ×3 (08:33→20:13)
[2017-07-16] MEDS: Enoxaparin Sodium 30 MG/0.3 ML SYRINGE SC SCH (08:35)
[2017-07-16] MEDS: levETIRAcetam 500 MG TAB PO SCH ×2 (08:35→20:13)
[2017-07-16] MEDS: Folic Acid 1 MG TAB PO SCH (08:35)
[2017-07-16] MEDS: Valsartan 80 MG TAB PO SCH (08:46)
--- NOTE | 2017-07-16 15:56 | PDOC.PN ---
- Subjective Encounter Start Date: 07/16/17 Encounter Start Time: 12:15 Subjective: breathing better, is amb in room -: is off nasal oxygen now - Objective Resuscitation Status: Resuscitation Status FULL:Full Resuscitation MAR Reviewed: Yes Vital Signs & Weight: Vital Signs (12 hours) Temp Pulse Resp BP Pulse Ox 07/16/17 13:59 72 18 92 L 07/16/17 11:42 97.9 F 72 20 161/80 H 92 L 07/16/17 10:23 73 20 93 L 07/16/17 08:00 98.2 F 73 20 91 L 07/16/17 07:18 98.2 F 73 20 164/91 H 91 L 07/16/17 07:08 69 18 94 L 07/16/17 07:04 69 18 94 L 07/16/17 04:00 97.6 F 69 18 178/90 H 94 L Weight Admit Weight 195 lb 6 oz Weight 195 lb I&O: 07/15/17 07/16/17 07/17/17 06:59 06:59 06:59 Intake Total 620 790 960 Balance 620 790 960 Result Diagrams: 07/16/17 07:04 07/16/17 07:04 Phys Exam - Physical Examination HEENT: PERRLA, moist MMs Neck: no JVD, supple Respiratory: no wheezing, no rales rhonchi+ Cardiovascular: RRR, no significant murmur Gastrointestinal: soft, non-tender, no distention, positive bowel sounds Musculoskeletal: no edema, pulses present Neurological: non-focal, moves all 4 limbs Psychiatric: A&O x 3 Dx/Plan (1) COPD exacerbation Code(s): J44.1 - CHRONIC OBSTRUCTIVE PULMONARY DISEASE W (ACUTE) EXACERBATION Status: Acute (2) CKD (chronic kidney disease) stage 3, GFR 30-59 ml/min Status: Chronic (3) Cutaneous lupus erythematosus Code(s): L93.2 - OTHER LOCAL LUPUS ERYTHEMATOSUS Status: Chronic (4) HTN (hypertension) Code(s): I10 - ESSENTIAL (PRIMARY) HYPERTENSION Status: Chronic Qualifiers: Hypertension type: essential hypertension (5) History of CVA (cerebrovascular accident) Code(s): Z86.73 - PRSNL HX OF TIA (TIA), AND CEREB INFRC W/O RESID DEFICITS Status: Chronic (6) History of nephrectomy, unilateral Code(s): Z90.5 - ACQUIRED ABSENCE OF KIDNEY Status: Chronic (7) Seizure disorder Code(s): G40.909 - EPILEPSY, UNSP, NOT INTRACTABLE, WITHOUT STATUS EPILEPTICUS Status: Chronic - Plan taper steroids slowly -: duonebs, empiric antibiotics -: dc plan in am -: is off oxygen now * . Review of Systems - Medications/Allergies Allergies/Adverse Reactions: Allergies Allergy/AdvReac Type Severity Reaction Status Date / Time Penicillins Allergy Verified 07/12/17 07:59 Sulfa (Sulfonamide Allergy Verified 07/12/17 07:59 Antibiotics) Medications: Current Medications Acetaminophen (Tylenol) 650 mg PO Q4H PRN PRN Reason: Headache/Fever or Pain Last Admin: 07/14/17 17:11 Dose: 650 mg Hydrocodone Bitart/Acetaminophen ([place] 5/325) 1 tab PO Q4H PRN PRN Reason: Moderate Pain (4-6) Al Hydroxide/Mg Hydroxide (Maalox) 30 ml PO Q6H PRN PRN Reason: Heartburn or Indigestion Albuterol/Ipratropium (Duoneb) 3 ml NEB [id number] [facility] Last Admin: 07/16/17 13:59 Dose: 3 ml Artificial Tears (Tears Naturale) 0 drop EA EYE PRN PRN PRN Reason: Dry Eyes Benzonatate (Tessalon) 100 mg PO Q4H PRN PRN Reason: Cough Cefdinir (Omnicef) 300 mg PO BID [facility] Last Admin: 07/16/17 08:33 Dose: 300 mg Clonidine HCl (Catapres) 0.1 mg PO Q4H PRN PRN Reason: Systolic BP > 180 Clopidogrel Bisulfate (Plavix) 75 mg PO DAILY [facility] Last Admin: 07/16/17 08:33 Dose: 75 mg Cyanocobalamin (Vitamin B-12) 1,000 mcg PO DAILY [facility] Last Admin: 07/16/17 08:33 Dose: 1,000 mcg Duloxetine HCl (Cymbalta) 30 mg PO BID [facility] Last Admin: 07/16/17 08:33 Dose: 30 mg Enoxaparin Sodium (Lovenox) 30 mg SC 0900 [facility] Last Admin: 07/16/17 08:35 Dose: 30 mg Fluticasone Propionate (Flonase Nasal [place]) 0 gm NASAL DAILY [facility] Last Admin: 07/16/17 08:32 Dose: 2 spr Folic Acid (Folvite) 1 mg PO DAILY [facility] Last Admin: 07/16/17 08:35 Dose: 1 mg Guaifenesin (Robitussin Sf) 200 mg PO Q4H PRN PRN Reason: Cough Guaifenesin (Mucinex) 600 mg PO TID [facility] Last Admin: 07/16/17 14:08 Dose: 600 mg Hydralazine HCl (Apresoline) 10 mg SLOW IVP Q4H PRN PRN Reason: Systolic BP > 180 Levetiracetam (Keppra) 500 mg PO BID [facility] Last Admin: 07/16/17 08:35 Dose: 500 mg Loperamide HCl (Imodium) 2 mg PO PRN PRN PRN Reason: Diarrhea/Loose Stools Loratadine (Claritin) 10 mg PO DAILYPRN PRN PRN Reason: Sinus Symptoms Last Admin: 07/15/17 14:41 Dose: 10 mg Magnesium Hydroxide (Milk Of Magnesium) 30 ml PO DAILYPRN PRN PRN Reason: Constipation Methylprednisolone Sodium Succinate (Solu-Medrol) 20 mg IVP Q8HR [facility] Last Admin: 07/16/17 14:08 Dose: 20 mg Mineral Oil/White Petrolatum (Eucerin Cream) 0 gm TOP BIDPRN PRN PRN Reason: Dry Skin Mometasone Furoate/Formoterol Fumar (Dulera 200 Mcg/5 Mcg Inhaler) 2 puff INH BID-RT [facility] Last Admin: 07/16/17 07:08 Dose: 2 puff Nicotine (Nicoderm Patch) 21 mg TD Q24HR [facility] Last Admin: 07/15/17 20:32 Dose: 21 mg Ondansetron HCl (Zofran Odt) 4 mg PO Q6H PRN PRN Reason: Nausea/Vomiting Ondansetron HCl (Zofran) 4 mg IVP Q6H PRN PRN Reason: Nausea/Vomiting Pantoprazole Sodium (Protonix) 40 mg PO DAILY [facility] Last Admin: 07/16/17 08:35 Dose: 40 mg Phenol (Chloraseptic [place] 180 Ml Bot) 0 ml PO PRN PRN PRN Reason: Sore Throat Phenytoin Sodium (Dilantin Er) 200 mg PO BID [facility] Last Admin: 07/16/17 08:34 Dose: 200 mg Senna (Senokot) 2 tab PO HSPRN PRN PRN Reason: Constipation Sodium Chloride ([place] Nasal [place] 0.65%) 0 ml EA NARE QIDPRN PRN PRN Reason: Nasal Congestion Sodium Chloride (Flush - Normal Saline) 10 ml IVF Q12HR [facility] Last Admin: 07/16/17 08:46 Dose: 10 ml Sodium Chloride (Flush - Normal Saline) 10 ml IVF PRN PRN PRN Reason: Saline Flush Valsartan (Diovan) 80 mg PO DAILY [facility] Last Admin: 07/16/17 08:46 Dose: 80 mg Zolpidem Tartrate (Ambien) 5 mg PO HSPRN PRN PRN Reason: Insomnia
[2017-07-16] MEDS: Nicotine 21 MG PATCH TD SCH (20:14)
[2017-07-16] MEDS ORDERED: predniSONE 20 MG TAB PO SCH (23:30)
[2017-07-17] MEDS: Mometasone/Formoterol 120 PUFF INHALER INH SCH (07:01)
[2017-07-17 07:23] VITALS: TEMP 98.2
[2017-07-17] MEDS: levETIRAcetam 500 MG TAB PO SCH (07:44)
[2017-07-17] MEDS: Cefdinir 300 MG CAP PO SCH (07:44)
[2017-07-17] MEDS: Cyanocobalamin (Vitamin B-12) 1,000 MCG TAB PO SCH (07:44)
[2017-07-17] MEDS: Fluticasone Propionate Nasal Spray 16 gm Bottle NASAL SCH (07:45)
[2017-07-17] MEDS: Clopidogrel Bisulfate 75 MG TAB PO SCH (07:45)
[2017-07-17] MEDS: guaiFENesin ER 600 MG TAB PO SCH (07:45)
[2017-07-17] MEDS: Valsartan 80 MG TAB PO SCH (07:46)
[2017-07-17] MEDS: Folic Acid 1 MG TAB PO SCH (07:46)
[2017-07-17] MEDS: Enoxaparin Sodium 30 MG/0.3 ML SYRINGE SC SCH (07:47)
[2017-07-17] MEDS ORDERED: predniSONE 20 MG TAB PO SCH (08:00)
[2017-07-17 11:29] VITALS: BP 169/92
--- NOTE | 2017-07-17 17:03 | PDOC.PN ---
- Subjective Encounter Start Date: 07/17/17 Encounter Start Time: 08:40 Subjective: breathing better - Objective Resuscitation Status: Resuscitation Status FULL:Full Resuscitation MAR Reviewed: Yes Vital Signs & Weight: Vital Signs (12 hours) Temp Pulse Resp BP Pulse Ox 07/17/17 11:26 98.2 F 69 16 169/92 H 93 L 07/17/17 10:52 86 20 94 L 07/17/17 08:00 98.2 F 71 16 93 L 07/17/17 07:21 98.2 F 71 16 159/92 H 93 L 07/17/17 06:58 62 20 95 Weight Admit Weight 195 lb 6 oz Weight 195 lb I&O: 07/16/17 07/17/17 07/18/17 06:59 06:59 06:59 Intake Total 790 2560 Balance 790 2560 Result Diagrams: 07/16/17 07:04 07/16/17 07:04 Phys Exam - Physical Examination HEENT: PERRLA, moist MMs Neck: no JVD, supple Respiratory: no wheezing, no rales Cardiovascular: RRR, no significant murmur Gastrointestinal: soft, non-tender, positive bowel sounds Musculoskeletal: no edema, pulses present Neurological: non-focal, moves all 4 limbs Psychiatric: A&O x 3 Dx/Plan (1) COPD exacerbation Code(s): J44.1 - CHRONIC OBSTRUCTIVE PULMONARY DISEASE W (ACUTE) EXACERBATION Status: Acute (2) CKD (chronic kidney disease) stage 3, GFR 30-59 ml/min Status: Chronic (3) Cutaneous lupus erythematosus Code(s): L93.2 - OTHER LOCAL LUPUS ERYTHEMATOSUS Status: Chronic (4) HTN (hypertension) Code(s): I10 - ESSENTIAL (PRIMARY) HYPERTENSION Status: Chronic Qualifiers: Hypertension type: essential hypertension (5) History of CVA (cerebrovascular accident) Code(s): Z86.73 - PRSNL HX OF TIA (TIA), AND CEREB INFRC W/O RESID DEFICITS Status: Chronic (6) History of nephrectomy, unilateral Code(s): Z90.5 - ACQUIRED ABSENCE OF KIDNEY Status: Chronic (7) Seizure disorder Code(s): G40.909 - EPILEPSY, UNSP, NOT INTRACTABLE, WITHOUT STATUS EPILEPTICUS Status: Chronic - Plan hemostable -: to continue steroid staper -: dc pt home * .
--- NOTE | 2017-07-17 20:23 | DIS ---
DATE OF ADMISSION: 07/14/2017 DATE OF DISCHARGE: 07/17/2017 DISCHARGE DISPOSITION: To home. PRIMARY DISCHARGE DIAGNOSIS: Acute chronic obstructive pulmonary disease exacerbation. SECONDARY DISCHARGE DIAGNOSES: Chronic kidney disease, stage 3; history of cutaneous lupus; hyperte nsion; history of cerebrovascular accident; prior history of nephrectomy; seizure disorder. PROCEDURES DONE DURING HOSPITALIZATION: The patient has had chest x-ray done, which showed no acute infiltrate. Discharge BUN and creatinine are 31 and 1.8. BNP was 146. DISCHARGE MEDICATIONS: The patient to continue tapering prednisone starting at 10 mg dose pack, Omn icef 300 mg p.o. twice daily for another 7 days, Plavix 75 mg p.o. daily, Cymbalta 30 mg p.o. twice daily, fluticasone nasal spray 1 spray to each nostril twice daily, DuoNebs q.6 hourly, Keppra 500 m g p.o. twice daily, Dilantin 200 mg p.o. twice daily, valsartan 80 mg p.o. daily, Mucinex 600 mg p.o . 3 times daily for another 10 days. ALLERGIES: SULFA AND PENICILLIN. DISCHARGE PLAN: The patient to follow up with primary care physician in 1 week. BRIEF COURSE DURING HOSPITALIZATION: The patient initially came in with complaints of shortness of breath and wheezing. He was recently discharged for similar complaints. The patient was placed on steroids and empiric antibiotics. He has done remarkably well. The patient has upper airway conges tion with sinusitis. In view of this, he was advised to continue antibiotics along with Mucinex. Santhosh harris is on a steroid taper. He has been strongly counseled regarding tobacco cessation. He is hemodyn amically stable and needs to follow up with his primary care physician in 1 week. Please see a face to face documentation on [employer] for the day of discharge.
== END 2017-07-17 13:33 | disposition home or self-care (01) | DRG 190 ==
LOC: ERS 06:31 → T4-B 10:48
PROVIDERS: ADMIT Internal Medicine; ATTEND Internal Medicine
DX: J44.1 Chronic obstructive pulmonary disease with (acute) exacerbation (principal); J96.01 Acute respiratory failure with hypoxia; I69.398 Other sequelae of cerebral infarction; F17.210 Nicotine dependence, cigarettes, uncomplicated; G40.909 Epilepsy, unspecified, not intractable, without status epilepticus; K21.9 Gastro-esophageal reflux disease without esophagitis; H53.9 Unspecified visual disturbance; Z85.528 Personal history of other malignant neoplasm of kidney; Z90.5 Acquired absence of kidney; I25.10 Atherosclerotic heart disease of native coronary artery without angina pectoris; E78.5 Hyperlipidemia, unspecified; G62.9 Polyneuropathy, unspecified; I12.9 Hypertensive chronic kidney disease with stage 1 through stage 4 chronic kidney disease, or unspecified chronic kidney disease; F41.9 Anxiety disorder, unspecified; F32.9 Major depressive disorder, single episode, unspecified; Z95.810 Presence of automatic (implantable) cardiac defibrillator; Z88.0 Allergy status to penicillin; Z88.2 Allergy status to sulfonamides; Z79.01 Long term (current) use of anticoagulants; D75.89 Other specified diseases of blood and blood-forming organs; J31.0 Chronic rhinitis; N18.3 Chronic kidney disease, stage 3 (moderate); L93.2 Other local lupus erythematosus
CPT/HCPCS: 36415; 71010; 80048; 80053; 80069; 81001; 82550; 82553; 83880; 84484; 85025; 93005; 94640; 94644; 94664; 94760; 96365; 96366; 96375; 96376; A4216; G0378; J0456; J1650; J1956; J2920; J2930; J7050; J7506; J7611; J7620

== ENCOUNTER 2017-08-04 14:42 | Outpatient (CLI) | payer MEDICARE ==
--- NOTE | 2017-08-04 18:45 | RAD ---
LUMBAR SPINE THREE VIEWS 08/04/17 HISTORY: Low back pain. COMPARISON: Lumbar spine radiograph 02/13/11. FINDINGS: There are numerous surgical clips on the retroperitoneum bilaterally. Mild degenerative disc space h eight loss throughout the lumbar spine. Moderate degenerative disc space height loss at L5-S1. Anter ior osteophytes throughout the lumbar spine. IMPRESSION: 1. No acute fracture or malalignment. 2. Mild spondylosis, no significant change from 2011. There is mild degenerative disc space hei ght loss at L4-5 and L5-S1. POS: [facility]
== END 2017-08-04 14:43 | disposition home or self-care (01) ==
LOC: RAD-FRANK 14:42
PROVIDERS: ATTEND Nurse Practitioner Family
DX: M54.5 Low back pain (principal); M47.816 Spondylosis without myelopathy or radiculopathy, lumbar region; M51.36 Other intervertebral disc degeneration, lumbar region
CPT/HCPCS: 72100

== ENCOUNTER 2017-10-03 01:26 | Emergency (ER) | payer MEDICARE ==
[2017-10-03] MEDS ORDERED: Acetaminophen 500 MG TAB ONE (02:24)
[2017-10-03 02:38] LABS: #Eosinphils 0.1 thou/uL (0.0-0.7); #Lymphocytes 0.9 thou/uL (1.20-3.40); #Monocytes 0.5 thou/uL (0.11-0.59); #Neutrophils 4.2 thou/uL (1.40-6.50); %Basophils 0.3 % (0.0-1.0); %Eosinophils 1.2 % (0.0-10.0); %Lymphocytes 16.2 % (21.0-51.0); %Neutrophils 73.3 % (42.0-75.0); Hemoglobin 12.6 g/dL (14.0-18.0); Mean Corpuscular HGB CONC 33.2 g/dL (32.0-36.0); Mean Corpuscular Hemoglobin 34.3 pg (27.0-31.0); Mean Platelet Volume 8.4 fL (7.4-10.4); Platelet Count 135 thou/uL (130-400); RBC Distribution Width 12.4 % (11.5-14.5); Red Blood Cell (RBC) Count 3.68 mill/uL (4.70-6.10); White Blood Cell (WBC) Count 5.7 thou/uL (4.8-10.8)
[2017-10-03] MEDS ORDERED: Oseltamivir 75 MG CAP PO SCH (02:45)
[2017-10-03 03:04] LABS: ALT (SGPT) 13 U/L (8-55); AST (SGOT) 28 U/L (5-34); Alkaline Phosphatase 107 U/L (40-150); Anion Gap 14 mmol/L (10-20); BUN (Urea Nitrogen) 27 mg/dL (8.4-25.7); Bilirubin, Total 0.3 mg/dL (0.2-1.2); Calc. Creatinine Clearance 0 mL/min (70-130); Calcium 9.1 mg/dL (7.8-10.44); Carbon Dioxide 24 mmol/L (23-31); Chloride 107 mmol/L (98-107); Estimated GFR-MDRD 31; Globulin 3.1 g/dL (2.4-3.5); Glucose 142 mg/dL (80-115); Potassium 4.8 mmol/L (3.5-5.1); Protein, Total 7.1 g/dL (5.8-8.1); Sodium 140 mmol/L (136-145)
[2017-10-03 03:04] LABS: CKMB 1.2 ng/mL (0-6.6); Troponin I 0.012 ng/mL (< 0.028)
[2017-10-03] MEDS ORDERED: Azithromycin 250 MG TAB ONE (04:05)
--- NOTE | 2017-10-03 08:03 | RAD ---
PORTABLE CHEST ONE VIEW: 10/03/2017 1:50 a.m. HISTORY: Cough. COMPARISON: 07/14/2017 FINDINGS: A left-sided pacemaker device remains in place. The heart size is normal. There are changes of COPD . There is suggestion of a new mild infiltrate in the left lower lung. This is suspicious for pneum onia. No pneumothoraces or pleural effusions are seen. POS: [facility]
== END 2017-10-03 04:15 | disposition home or self-care (01) ==
LOC: ERS 01:26
DX: J44.1 Chronic obstructive pulmonary disease with (acute) exacerbation (principal); J11.1 Influenza due to unidentified influenza virus with other respiratory manifestations; I12.9 Hypertensive chronic kidney disease with stage 1 through stage 4 chronic kidney disease, or unspecified chronic kidney disease; N18.3 Chronic kidney disease, stage 3 (moderate); F41.9 Anxiety disorder, unspecified; F17.210 Nicotine dependence, cigarettes, uncomplicated; Z79.899 Other long term (current) drug therapy; Z86.73 Personal history of transient ischemic attack (TIA), and cerebral infarction without residual deficits
CPT/HCPCS: 36415; 71010; 80053; 82553; 84484; 85025; 93005; 94760; J7620

== ENCOUNTER 2017-10-07 14:01 | Outpatient (CLI) | payer MEDICARE, OTHER ==
--- NOTE | 2017-10-07 14:42 | RAD ---
PA AND LATERAL VIEWS CHEST: HISTORY: Shortness of breath. Questionable left lower lobe pneumonia. COMPARISON: 10/03/2017 FINDINGS: The heart size is normal. A left-sided pacemaker device remains in place. The lungs are well expand ed without focal areas of consolidation, pneumothoraces, or pleural effusions. IMPRESSION: No acute process. POS: [facility]
== END 2017-10-07 14:02 | disposition home or self-care (01) ==
LOC: RAD-FRANK 14:01
PROVIDERS: ATTEND Nurse Practitioner Family
DX: R06.02 Shortness of breath (principal)
CPT/HCPCS: 71046

== ENCOUNTER 2018-01-04 08:56 | Outpatient (CLI) | payer MEDICARE, OTHER ==
--- NOTE | 2018-01-04 10:30 | RAD ---
TWO VIEWS CHEST: DATE: 01/04/18. PROVIDED CLINICAL HISTORY: Chest pain. FINDINGS: Comparison 10/07/17. Cardiac and mediastinal silhouette is unchanged in appearance. Left subclavian c ardiac pacing device is again seen. Atherosclerosis involves the aortic arch. Emphysematous changes are redemonstrated. No focal consolidation evident. No definite pleural fluid or pneumothorax appa rent. Degenerative changes are seen involving the thoracic spine. IMPRESSION: Chronic obstructive changes without evidence for an acute cardiopulmonary process. POS: [facility]
== END 2018-01-04 08:57 | disposition home or self-care (01) ==
LOC: RAD-FRANK 08:56
PROVIDERS: ATTEND Nurse Practitioner Family
DX: R07.9 Chest pain, unspecified (principal); J44.9 Chronic obstructive pulmonary disease, unspecified
CPT/HCPCS: 71046

== ENCOUNTER 2018-01-09 16:01 | Emergency (ER) | payer MEDICARE, OTHER ==
[2018-01-09] MEDS ORDERED: cloNIDine 0.1 MG TAB ONE (16:38)
== END 2018-01-09 19:35 | disposition home or self-care (01) ==
LOC: ERS 16:01
DX: F41.9 Anxiety disorder, unspecified; F17.210 Nicotine dependence, cigarettes, uncomplicated; Z79.02 Long term (current) use of antithrombotics/antiplatelets; Z79.899 Other long term (current) drug therapy; J44.9 Chronic obstructive pulmonary disease, unspecified; N18.3 Chronic kidney disease, stage 3 (moderate); I12.9 Hypertensive chronic kidney disease with stage 1 through stage 4 chronic kidney disease, or unspecified chronic kidney disease; Z86.73 Personal history of transient ischemic attack (TIA), and cerebral infarction without residual deficits; H54.8 Legal blindness, as defined in USA
CPT/HCPCS: 99284

== ENCOUNTER 2018-01-23 17:03 | Observation (INO) | payer MEDICARE ==
[2018-01-23 17:40] LABS: #Basophils 0.1 thou/uL (0.0-0.2); #Eosinphils 0.2 thou/uL (0.0-0.7); #Lymphocytes 2.5 thou/uL (1.20-3.40); #Monocytes 0.7 thou/uL (0.11-0.59); #Neutrophils 4.9 thou/uL (1.40-6.50); %Basophils 1.1 % (0.0-1.0); %Eosinophils 2.5 % (0.0-10.0); %Monocytes 8.5 % (0.0-10.0); %Neutrophils 57.9 % (42.0-75.0); Mean Corpuscular HGB CONC 33.3 g/dL (32.0-36.0); Mean Corpuscular Hemoglobin 33.3 pg (27.0-31.0); Mean Corpuscular Volume 99.9 fl (80.0-94.0); Mean Platelet Volume 9.2 fL (7.4-10.4); Platelet Count 146 thou/uL (130-400); RBC Distribution Width 12.3 % (11.5-14.5); White Blood Cell (WBC) Count 8.4 thou/uL (4.8-10.8)
[2018-01-23 18:03] LABS: ALT (SGPT) 12 U/L (8-55); AST (SGOT) 18 U/L (5-34); Albumin 3.8 g/dL (3.4-4.8); Alkaline Phosphatase 138 U/L (40-150); Anion Gap 13 mmol/L (10-20); BUN (Urea Nitrogen) 45 mg/dL (8.4-25.7); Bilirubin, Total 0.7 mg/dL (0.2-1.2); Calc. Creatinine Clearance 0 mL/min (70-130); Carbon Dioxide 23 mmol/L (23-31); Chloride 106 mmol/L (98-107); Estimated GFR-MDRD 23; Globulin 2.6 g/dL (2.4-3.5); Glucose 115 mg/dL (80-115); Lipase 19 U/L (8-78); Potassium 4.4 mmol/L (3.5-5.1); Protein, Total 6.4 g/dL (5.8-8.1); Sodium 138 mmol/L (136-145)
[2018-01-23 18:07] LABS: CKMB 2.1 ng/mL (0-6.6); Troponin I Less than 0.010 ng/mL (< 0.028)
[2018-01-23] MEDS ORDERED: Morphine 4 MG/ML VIAL ONE ×2 (18:16→19:11)
--- NOTE | 2018-01-23 18:32 | RAD ---
PORTABLE AP CHEST X-RAY: 01/23/18 HISTORY: Shortness of breath for a weak with worsening of symptoms today. COMPARISON: 01/04/18 FINDINGS: Dual lead left subclavian cardiac pacemaking device remains in place and unchanged in position. Surgi channing clips are again seen overlying the right lung base. There are lucencies seen within the upper jarett g zones bilaterally likely related to emphysematous changes with crowding of the bronchovascular debo ings at each lung base. Lungs otherwise appear clear. Vascular calcifications are seen in a tortuous thoracic aorta. IMPRESSION: 1. No acute cardiopulmonary process. 2. Chronic lung changes with findings suggesting COPD. 3. Postsurgical changes upper abdomen. POS: [facility]
--- NOTE | 2018-01-23 18:47 | CT ---
NONCONTRAST CT ABDOMEN AND PELVIS: 01/23/18 HISTORY: Nephrolithiasis. Shortness of breath. Patient has abdominal pain/flank pain. History of right nephrec dilma due to cancer in 1995. COMPARISON: 01/30/17. FINDINGS: The lung bases are clear. Cardiac pacemaking leads are partially imaged. Postsurgical changes related to right nephrectomy and adrenalectomy are noted. Again noted are multiple hypodense and hyperdense left renal cystic lesions. No left renal or uretera l calculus is seen, and there is no hydronephrosis present. There are stable hypodense lesions again noted in the dome of the liver and left hepatic lobe. The spleen, pancreas, left adrenal gland, and partially distended urinary bladder demonstrate a gross ly normal nonenhanced CT appearance. There is colonic diverticulosis. The appendix is not visualized, but there is increased density in the region of the cecal apex and fi ndings are likely attributable to patient's history of prior appendectomy. Vascular calcifications are again seen in a tortuous abdominal aorta as well as involving the iliac a rteries. There are nonspecific mildly prominent loops of small bowel, but there are no CT findings to suggest a bowel obstruction. There are fat containing bilateral inguinal hernias. There is decreased attenuation in the region of the right inguinal hernia. This could be related to a small amount of fluid. This is incompletely isra ged or evaluated. There has been no significant interval change from the prior exam. IMPRESSION: 1. No left renal or ureteral calculus. 2. Multiple hypodense and hyperdense left renal lesions which do not appear significantly change d from prior exam in 2017. 3. Postsurgical changes related to right nephrectomy and adrenalectomy. 4. Stable hypodense hepatic lesions. 5. Colonic diverticulosis. 6. Post cholecystectomy changes. POS: [facility]
[2018-01-23 19:17] LABS: Bilirubin Negative (Negative); Blood, Urine Negative (Negative); Clarity CLOUDY (Clear); Glucose, Urine (Dipstick) Negative (Negative); Leukocyte Negative (Negative); Nitrite Negative (Negative); Protein, Urine (Dipstick) 30 mg/dL (Neg-Trace); Specific Gravity, Urine 1.017 (1.002-1.036); Urobilinogen 0.2 mg/dL (0.2-1.0)
[2018-01-23 19:20] LABS: Bacteria/HPF None Seen HPF (None Seen); RBC/HPF 0-3 HPF (0-3); Squamous Epithelial 0-3 HPF (0-3); Yeast-AUWi Flag 58.7 (0-25.0)
[2018-01-23 19:21] LABS: Pathc Cast-AUWi Flag 5.37 (0-2.49)
[2018-01-23] MEDS ORDERED: Nitroglycerin 2% Ointment 1 INCH/1 GM Packet ONE (19:21)
[2018-01-23 19:29] LABS: Crystals/HPF 1+ AMORPH URATES HPF (Negative); Hyaline Casts/LPF 7-10 HYALINE CAST LPF (0-3 Hyaline); Yeast-All Forms None Seen HPF (None Seen)
[2018-01-23 19:30] LABS: Renal Epithelial None Seen HPF (0-3); Transitional Epithelial 0-3 HPF (0-3)
[2018-01-23] MEDS ORDERED: Enoxaparin Sodium 100 MG/ML SYRINGE ONE (19:33)
[2018-01-23] MEDS ORDERED: Fentanyl 100 MCG/2 ML VIAL ONE (19:34)
[2018-01-23] MEDS ORDERED: Acetaminophen 325 MG TAB PO PRN (21:59)
[2018-01-23] MEDS ORDERED: Fentanyl 100 MCG/2 ML VIAL SLOW IVP PRN (21:59)
[2018-01-23] MEDS ORDERED: Ondansetron ODT 4 MG TAB SL PRN (21:59)
[2018-01-23] MEDS ORDERED: Ondansetron HCl/PF 4 MG/2 ML Vial IVP PRN (21:59)
[2018-01-23] MEDS ORDERED: HYDROcodone/Acetaminophen 5/325 mg Tablet PO PRN ×2 (21:59)
[2018-01-23 22:24] VITALS: BMI 27.3
[2018-01-23] MEDS ORDERED: DULoxetine 30 MG CAP PO SCH (22:45)
[2018-01-23] MEDS ORDERED: Doxycycline 100 MG CAP PO SCH (22:45)
[2018-01-23 22:51] LABS: Troponin I Less than 0.010 ng/mL (< 0.028)
[2018-01-23] MEDS ORDERED: levETIRAcetam 500 MG TAB PO SCH (23:00)
[2018-01-24 01:18] LABS: Troponin I Less than 0.010 ng/mL (< 0.028)
[2018-01-24] MEDS ORDERED: Nitroglycerin 0.4 MG TAB (25 Tab Bottle) PO PRN (02:02)
[2018-01-24] MEDS ORDERED: Acetaminophen 650 MG Suppository PR PRN (02:02)
[2018-01-24] MEDS ORDERED: Bisacodyl 5 MG TAB PO PRN (02:02)
[2018-01-24] MEDS ORDERED: Nicotine 14 MG PATCH TD SCH (02:15)
--- NOTE | 2018-01-24 02:41 | HP ---
PRIMARY CARE PROVIDER: ELLEN Barbosa CHIEF COMPLAINT: Chest pain. HISTORY OF PRESENT ILLNESS: Mr. Hester is a pleasant 67-year-old gentleman who was seen at [facility] on 01/24/2018. He reports that he has a history of chronic lower back pain. Over the last week or so, he started osborn ving chest pain, starting on the left side of his chest and radiating to the right side, pressure-lik e sensation, 10/10 at its worst, accompanied by blurry vision, generalized weakness and feeling like passing out. He also reports shortness of breath with the sensation. He reports that it improves wi th rest. Previously, he used to walk 3 blocks back and forth. Now he reports that after walking sarah f the distance, he has to stop because of chest pain and shortness of breath. He denies any recent travel. He denies any fevers or chills. He denies any cough. He denies any nausea or vomiting. REVIEW OF SYSTEMS: The following complete review of systems was negative, unless otherwise mentioned in the HPI or below: Constitutional: Weight loss or gain, ability to conduct usual activities. Sk in: Rash, itching. Eyes: Double vision, pain. ENT/Mouth: Nose bleeding, neck stiffness, pain, te nderness. Cardiovascular: Palpitations, dyspnea on exertion, orthopnea. Respiratory: Shortness of breath, wheezing, cough, hemoptysis, fever or night sweats. Gastrointestinal: Poor appetite, abdom inal pain, heartburn, nausea, vomiting, constipation, or diarrhea. Genitourinary: Urgency, frequenc y, dysuria, nocturia. Musculoskeletal: Pain, swelling. Neurologic/Psychiatric: Anxiety, depressio n. Allergy/Immunologic: Skin rash, bleeding tendency. PAST MEDICAL HISTORY: Significant for severe COPD, hypertension, seizure disorder, obstructive sleep apnea syndrome, gastroesophageal reflux disease, stroke, renal cell carcinoma, coronary artery disea se, ongoing tobacco abuse disorder, dyslipidemia, lupus, peripheral neuropathy and chronic kidney dis ease stage 4. PSYCHIATRIC HISTORY: Anxiety and depression. PAST SURGICAL HISTORY: Pacemaker/AICD placement, appendectomy, right nephrectomy, cardiac catheteriz ation, uvulectomy for sleep apnea and surgery for deviated nasal septum. ALLERGIES: SULFA and PENICILLIN. SOCIAL HISTORY: The patient reports smoking half a pack of cigarettes a day. He denies alcohol use or recreational drug use. FAMILY HISTORY: The patient denies any family history of coronary artery disease. CODE STATUS: I discussed his code status. He is FULL CODE. He reports that substitute decision ammon er is his daughter, Grace. CURRENT MEDICATIONS: Include Plavix 75 mg daily, doxycycline 100 mg 2 times a day, Cymbalta 30 mg 2 times a day, Keppra 500 mg 2 times a day, nifedipine 30 mg daily, Dilantin 200 mg 2 times a day, and valsartan 80 mg daily. PHYSICAL EXAMINATION: GENERAL: Mr. Hester is awake and alert, not in acute distress. VITAL SIGNS: He is afebrile. Blood pressure is 162/86, pulse is 74, his breathing at rate of 20 and saturating 94% on room air. EYES: No scleral icterus. No conjunctival pallor. ENT: Moist mucosal membranes, no oropharyngeal erythema or exudates. NECK: Supple, nontender, normal range of movement. Trachea is midline. RESPIRATORY: Accessory muscles of breathing are not active. Chest wall movements are symmetric bila terally. LUNGS: Clear to auscultation without wheeze, rhonchi or crepitations. CARDIOVASCULAR: S1 and S2 are heard, regular. LUNGS: Peripheral pulses palpable. No carotid bruit, no pericardial rub. ABDOMEN: Soft, nontender, bowel sounds are heard, no hepatomegaly, no splenomegaly. NEUROLOGIC: Cranial nerves II through XII intact, deep tendon reflexes are 2+. MUSCULOSKELETAL: Power is 5/5 in all 4 extremities. Normal range of movement at all major extremity joints. SKIN: He has a bruise over the left ankle and a bruise over the mid upper back. Otherwise, no rashe s or subcutaneous nodules. LYMPHATIC: No cervical lymphadenopathy. PSYCHIATRIC: Normal mood, normal affect. The patient is oriented to person, place, and time. LABORATORY DATA: Mr. Hester's labs and investigations were reviewed. I reviewed his electrocardiogr am, which shows electronic atrial paced rhythm, no ST changes to suggest an acute coronary syndrome. I also reviewed his chest x-ray, which does not show any pulmonary infiltrates. He also had a CT sc an of the abdomen and pelvis, which did not reveal any renal or ureteral calculus. He had multiple h ypodense and hyperintense left renal lesions, which did not appear significantly different from 2017. He has colonic diverticulosis and stable hypodense hepatic lesions. He has an unremarkable CBC, el evated D-dimer of 0.99, elevated blood urea nitrogen of 45, elevated creatinine of 2.71, last known c reatinine 2.02 in 11/2017, otherwise normal comprehensive metabolic profile, normal BNP and troponin I negative x3. Urinalysis is positive for protein, hyaline casts and finally coarsely granular casts . ASSESSMENT AND PLAN: Mr. Hester is a pleasant 67-year-old gentleman who was seen at [facility] on 01/24/2018. His problem list includes: 1. Chest pain: Mr. Hester presents with chest pain of 1 week duration, exertional. He also has an elevated D-dimer. Emergency room physician has ordered a 2D echocardiogram and V/Q scan in the [facility]. He also discussed Mr. Hester's case with [facility] section director. We will await result of the V/Q scan as well as Cardiology Service input. Mr. Hester has received a dose of Lovenox 1 mg/kg. We saritha l hold off on further Lovenox, given his renal insufficiency. Continue to monitor telemetry for now. 2. Acute on chronic renal insufficiency: We will provide gentle hydration. We will hold valsartan. We will recheck creatinine level. 3. Tobacco abuse: The patient has been counseled regarding tobacco cessation. We will start nicoti ne replacement therapy. 4. Chronic obstructive pulmonary disease: Appears to be stable. 5. History of stroke: Stable. Many thanks for allowing me to participate in your patient's care. Please feel free to contact me wi th any questions or concerns. LEVEL OF RISK: High. LEVEL OF COMPLEXITY: High.
[2018-01-24] MEDS: Sodium Chloride 0.9% 1,000 ML IV SCH ×2 (04:35→18:26)
[2018-01-24 05:09] LABS: #Basophils 0.1 thou/uL (0.0-0.2); #Lymphocytes 2.2 thou/uL (1.20-3.40); #Monocytes 1.1 thou/uL (0.11-0.59); #Neutrophils 5.6 thou/uL (1.40-6.50); %Basophils 0.6 % (0.0-1.0); %Eosinophils 0.2 % (0.0-10.0); %Lymphocytes 24.8 % (21.0-51.0); %Monocytes 12.1 % (0.0-10.0); %Neutrophils 62.3 % (42.0-75.0); Hemoglobin 13.9 g/dL (14.0-18.0); Mean Corpuscular HGB CONC 33.9 g/dL (32.0-36.0); Mean Corpuscular Hemoglobin 33.9 pg (27.0-31.0); Mean Platelet Volume 9.4 fL (7.4-10.4); Platelet Count 127 thou/uL (130-400); RBC Distribution Width 12.2 % (11.5-14.5); Red Blood Cell (RBC) Count 4.09 mill/uL (4.70-6.10)
[2018-01-24 05:20] LABS: Anion Gap 12 mmol/L (10-20); BUN (Urea Nitrogen) 49 mg/dL (8.4-25.7); Calc. Creatinine Clearance 34 mL/min (70-130); Calcium 9.2 mg/dL (7.8-10.44); Carbon Dioxide 25 mmol/L (23-31); Chloride 109 mmol/L (98-107); Estimated GFR-MDRD 25; Glucose 111 mg/dL (80-115); Potassium 4.9 mmol/L (3.5-5.1); Sodium 141 mmol/L (136-145)
[2018-01-24] MEDS ORDERED: Valsartan 80 MG TAB PO SCH (09:00)
[2018-01-24] MEDS ORDERED: NIFEDIPINE 30 MG PO SCH (09:00)
[2018-01-24] MEDS: Clopidogrel Bisulfate 75 MG TAB PO SCH (09:27)
[2018-01-24] MEDS: Doxycycline 100 MG CAP PO SCH ×2 (09:27→20:15)
[2018-01-24] MEDS: DULoxetine 30 MG CAP PO SCH ×2 (09:27→20:15)
[2018-01-24] MEDS: levETIRAcetam 500 MG TAB PO SCH ×2 (09:28→20:15)
[2018-01-24] MEDS: Nicotine 14 MG PATCH TD SCH (09:28)
[2018-01-24] MEDS: NIFEdipine XL 30 MG TAB PO SCH (09:28)
--- NOTE | 2018-01-24 13:55 | NM ---
NUCLEAR MEDICINE VENTILATION PERFUSION STUDY: Date: 01/24/18 HISTORY: Evaluate for pulmonary embolism. Elevated D-Dimer. COMPARISON: Chest radiograph from prior day. TECHNIQUE: Ventilation and perfusion performed after the inhalation of 11.9 mCi of Xenon and intravenous adminis tration of 5.5 mCi technetium-99m MAA, respectively. FINDINGS: There is air trapping on the ventilation study. There is patchy appearance of the perfusion with pred ominant perfusion of the lower lobes consistent with emphysema. No mismatch is appreciated. IMPRESSION: Findings suggestive of severe COPD. No evidence of pulmonary embolism. POS: [facility]
--- NOTE | 2018-01-24 14:47 | CON ---
DATE OF CONSULTATION: 01/24/2018. REASON FOR CONSULTATION: Chest pain, previous pacemaker. PRIMARY INTERNATIONAL SALES REPRESENTATIVE: Dr. Abdirashid Stephens. HISTORY OF PRESENT ILLNESS: Mr. Hester is a 67-year-old gentleman. The patient has a history of bra dycardia and pacemaker insertion in the past. He also has a history of renal insufficiency. The olya cr came to the hospital last night complaining of chest pain. The chest pain was to the right side of his chest and went across his chest and upper abdomen, he felt like a pressure sensation. He als o feels short of breath with exertion and has a severe cough. He does continue to smoke. The patient had an elevated D-dimer, but has renal insufficiency and a ventilation perfusion scan has been ordered and he is about to go downstairs for that. PAST MEDICAL HISTORY: Has a history of pacemaker insertion, but from what I can tell is he has not c ome back for followup since 2010. Fortunately, the pacemaker still has over 2 years left on the [facility]. He states he only gets his pacemaker checked when he comes to the hospital. No fever or chills. REVIEW OF SYSTEMS: Constitutional: Positive for cough. No weight gain or loss. Vision: No change s. Hearing: No changes. Pulmonary: Positive for shortness of breath. Gastrointestinal: Some int ermittent abdominal discomfort. Cardiovascular: As outlined above. Skin: No rashes. Neurologic: No unilateral weakness or numbness. Psychiatric: No unusual depression or anxiety. Hematologic: N o unusual bruising. Genitourinary: No burning with urination. PHYSICAL EXAMINATION: GENERAL: It is a pleasant 67-year-old gentleman with a very violent cough intermittently. VITAL SIGNS: Blood pressure is 157/90, pulse 60, it is regular. HEENT: Eyes, sclerae nonicteric. Mouth, mucous membranes moist. NECK: Supple, no lymphadenopathy. LUNGS: Some rhonchi, no wheezing or rales. CARDIOVASCULAR: Normal S1, normal S2. I do not hear murmur, rub or gallop. ABDOMEN: Soft, nontender, no hepatosplenomegaly. EXTREMITIES: Warm, dry, no clubbing, no cyanosis or edema. PSYCHIATRIC: Mood and affect normal. LABORATORY DATA AND IMAGING: Troponin levels are all negative. Creatinine is 2.55. Estimated GFR i s 25, which is stage IV renal failure. EKG reveals an atrial paced ventricular sensed rhythm with a right bundle branch block pattern. The patient did have a D-dimer, which was elevated at 0.99. ASSESSMENT: 1. Previous pacemaker insertion. Last seen in the office from what I can tell 2010. The device was interrogated during this admission and found fortunately to have 25 months estimated left on the [facility], fast majority of the time, atrial pacing ventricular sensing 97.5% of the time. The leads look ed fine. 2. Chest pain of uncertain etiology. 3. Stage IV renal failure. 4. Increased D-dimer. 5. Has a very severe cough currently. 6. Continued smoking. PLAN: 1. He received a single dose of enoxaparin that would anticoagulate him for quite some time. 2. He is on aspirin and Plavix. 3. Smoking cessation has been advised. 4. Echocardiogram. 5. Will likely need stress testing, this cannot be done today in view of the need for the ventilatio n perfusion scan. In addition, I do not think he could really get an adequate stress test today as t he images would be poor in all likelihood with his intermittent coughing. Hopefully, a few days off smoking and this will be able to do better with a stress test. 6. Hypertension, may need to increase blood pressure medicine. 7. Renal failure stage IV, which to avoid intravenous contrast if possible. PLAN: As outlined above. We will continue to follow with you. Dr. Stephens will resume care tomorr ow.
[2018-01-25] MEDS: Acetaminophen 325 MG TAB PO PRN ×2 (04:36→08:37)
[2018-01-25] MEDS: NIFEdipine XL 30 MG TAB PO SCH (08:35)
[2018-01-25] MEDS: Clopidogrel Bisulfate 75 MG TAB PO SCH (08:36)
[2018-01-25] MEDS: Doxycycline 100 MG CAP PO SCH ×2 (08:36→20:21)
[2018-01-25] MEDS: levETIRAcetam 500 MG TAB PO SCH ×2 (08:36→20:21)
[2018-01-25] MEDS: DULoxetine 30 MG CAP PO SCH ×2 (08:36→20:20)
[2018-01-25] MEDS: Nicotine 14 MG PATCH TD SCH (08:37)
[2018-01-25] MEDS: Sodium Chloride 0.9% 1,000 ML IV SCH ×2 (08:40→22:48)
--- NOTE | 2018-01-25 20:32 | PDOC.PN ---
- Subjective Encounter Start Date: 01/25/18 Encounter Start Time: 10:30 Patient seen and examined. No new complaints. No overnight events. Intermittent SOB. No new CP. - Objective Resuscitation Status: Resuscitation Status FULL:Full Resuscitation MAR Reviewed: Yes Vital Signs & Weight: Vital Signs (12 hours) Temp Pulse Resp BP BP Pulse Ox 01/25/18 19:25 98.5 F 71 26 H 167/90 H 96 01/25/18 18:48 70 18 96 01/25/18 15:58 98 F 71 22 H 143/82 H 95 01/25/18 13:40 68 18 98 01/25/18 11:11 98.1 F 65 24 H 147/86 H 99 01/25/18 09:36 69 18 97 01/25/18 08:35 75 135/90 Weight Weight 196 lb 8 oz I&O: 01/24/18 01/25/18 01/26/18 06:59 06:59 06:59 Intake Total 480 2241 3275 Output Total 1325 Balance 480 2241 1950 Result Diagrams: 01/24/18 04:32 01/26/18 04:56 Radiology Reviewed by me: Yes (CXR - no infiltrate) EKG Reviewed by me: Yes (Tele SR) Phys Exam - Physical Examination Constitutional: NAD Respiratory: no rales, no rhonchi, wheezing present (scat) Cardiovascular: RRR, no rub Gastrointestinal: soft, positive bowel sounds Musculoskeletal: no edema Psychiatric: A&O x 3 Dx/Plan - Plan DVT proph w/SCDs IMPRESSION: 1. CP ?Unstable angina 2. Elevated D-dimer - V/Q negative 3. JERAD on CKD 3 4. COPD 5. Tob dep 6. Other issues per previous notes PLAN: * Cont IV fluids for JERAD * AM labs * Cardiology following * Cont to monitor * Cont current meds as below Review of Systems - Review of Systems Cardiovascular: negative: chest pain, palpitations, orthopnea, paroxysmal nocturnal dyspnea, edema, light headedness, other Gastrointestinal: negative: Nausea, Vomiting, Abdominal Pain, Diarrhea, Constipation, Melena, Hematochezia, Other - Medications/Allergies Allergies/Adverse Reactions: Allergies Allergy/AdvReac Type Severity Reaction Status Date / Time Penicillins Allergy Verified 07/12/17 07:59 Sulfa (Sulfonamide Allergy Verified 07/12/17 07:59 Antibiotics) Medications: Current Medications Acetaminophen (Tylenol) 650 mg PO Q4H PRN PRN Reason: Headache/Fever or Pain Last Admin: 01/25/18 08:37 Dose: 650 mg Acetaminophen (Tylenol) 650 mg VT Q4H PRN PRN Reason: Headache/Fever or Pain Albuterol/Ipratropium (Duoneb) 3 ml NEB [id number] PRN PRN Reason: SOB &/or Wheezing Last Admin: 01/25/18 09:36 Dose: 3 ml Albuterol/Ipratropium (Duoneb) 3 ml NEB [id number] [facility] Last Admin: 01/25/18 18:48 Dose: 3 ml Albuterol/Ipratropium (Duoneb) 3 ml NEB Q2H PRN PRN Reason: SOB &/or Wheezing Aspirin (Aspirin Chewable) 81 mg PO DAILY [facility] Last Admin: 01/25/18 08:36 Dose: 81 mg Bisacodyl (Dulcolax) 10 mg PO DAILYPRN PRN PRN Reason: Constipation Clopidogrel Bisulfate (Plavix) 75 mg PO DAILY [facility] Last Admin: 01/25/18 08:36 Dose: 75 mg Doxycycline Hyclate (Vibramycin) 100 mg PO BID [facility] Last Admin: 01/25/18 20:21 Dose: 100 mg Duloxetine HCl (Cymbalta) 30 mg PO BID [facility] Last Admin: 01/25/18 20:20 Dose: 30 mg Sodium Chloride (Normal Saline 0.9%) 1,000 mls @ 70 mls/hr IV .[id number] [facility] Last Admin: 01/25/18 08:40 Dose: 1,000 mls Levetiracetam (Keppra) 500 mg PO BID [facility] Last Admin: 01/25/18 20:21 Dose: 500 mg Nicotine (Nicoderm Patch) 14 mg TD 0900 [facility] Last Admin: 01/25/18 08:37 Dose: 14 mg Nifedipine (Procardia Xl) 30 mg PO DAILY [facility] Last Admin: 01/25/18 08:35 Dose: 30 mg Nitroglycerin (Nitrostat) 0.4 mg PO Q5MIN PRN PRN Reason: Chest Pain Phenytoin Sodium (Dilantin Er) 200 mg PO BID [facility] Last Admin: 01/25/18 20:21 Dose: 200 mg
[2018-01-25] MEDS ORDERED: Sodium Chloride 0.65% Nasal 44 ML BOT EA NARE PRN (22:29)
[2018-01-26 05:57] LABS: Anion Gap 11 mmol/L (10-20); BUN (Urea Nitrogen) 40 mg/dL (8.4-25.7); Calc. Creatinine Clearance 45 mL/min (70-130); Calcium 8.5 mg/dL (7.8-10.44); Carbon Dioxide 22 mmol/L (23-31); Chloride 111 mmol/L (98-107); Estimated GFR-MDRD 34; Glucose 89 mg/dL (80-115); Magnesium 1.9 mg/dL (1.6-2.6); Sodium 140 mmol/L (136-145)
[2018-01-26] MEDS ORDERED: Regadenoson 0.4 MG/5 ML SYRINGE ONE (09:31)
[2018-01-26] MEDS: DULoxetine 30 MG CAP PO SCH (12:08)
[2018-01-26] MEDS: Clopidogrel Bisulfate 75 MG TAB PO SCH (12:08)
[2018-01-26] MEDS: levETIRAcetam 500 MG TAB PO SCH (12:09)
[2018-01-26] MEDS: NIFEdipine XL 30 MG TAB PO SCH (12:09)
[2018-01-26] MEDS: Doxycycline 100 MG CAP PO SCH (12:09)
[2018-01-26] MEDS: Nicotine 14 MG PATCH TD SCH (12:10)
[2018-01-26 12:11] VITALS: BP 166/90
[2018-01-26] MEDS: Sodium Chloride 0.9% 1,000 ML IV SCH (12:11)
[2018-01-26 12:17] VITALS: TEMP 97.9
--- NOTE | 2018-01-26 12:47 | NM ---
RADIONUCLIDE STRESS REST MYOCARDIAL PERFUSION SCAN WITH CT ATTENUATION CORRECTION AND SPECT IMAGING LEFT VENTRICULAR WALL MOTION EVALUATION AND EJECTION FRACTION: HISTORY: Chest pain. FINDINGS: Lexiscan protocol was used. There is heterogeneous uptake of radiotracer throughout the left ventric ular myocardium with no focal perfusion defect or reversibility. QGS analysis of gated SPECT images shows no focal wall motion abnormalities. Ejection fraction is calculated at 53%. IMPRESSION: 1. Normal myocardial perfusion scan showing no reliable evidence of ischemia. 2. Borderline left ventricular ejection fraction of 53%. No focal wall motion abnormalities are car arent. POS: [facility]
--- NOTE | 2018-01-27 10:53 | DIS ---
DATE OF ADMISSION: 01/23/2018 DATE OF DISCHARGE: 01/27/2018 DISCHARGE DISPOSITION: Home. FOLLOWUP: Follow up with primary care physician Dr. Eloise Monroe in 1 week. Follow up with Dr. Stephens and Dr. Donovan as scheduled. Base met after 1 week is recommended. Primary care physician is advised to follow. DISCHARGE MEDICATIONS: 1. Amlodipine 5 mg daily. 2. Other home medications were resumed except for valsartan. Patient was seen and examined on the day of discharge, denies any new complaints, no chest pain, shor tness of breath, palpitations. BRIEF HOSPITAL COURSE: Patient is a 67-year-old male with COPD, hypertension, obstructive sleep apne a, coronary artery disease with ongoing tobacco abuse presented to the emergency room with chest disc omfort. Please refer to the history and physical dated 01/23/2018 for further details. The patient was admitted to the hospital with a diagnosis of chest discomfort, rule out acute coronar y syndrome. His serial cardiac enzymes were normal. Due to elevated D-dimer of 0.99, he underwent a V/Q scan that was negative. Echocardiogram showed left ventricular ejection of 50%-55% with hypokin etic apex. Patient was seen by Cardiology, Dr. Abdirashid Stephens. A Cardiolite stress test was perfor med that was negative for reversible ischemia. Ejection fraction was 53%. He has been cleared by Ca rdiology for discharge. FINAL DIAGNOSES: 1. Chest discomfort, acute coronary syndrome ruled out. 2. Elevated D-dimer with negative V/Q scan. 3. Acute kidney injury on chronic kidney disease, stage 3. His creatinine on admission was 2.71, at discharge was 1.97. ARB has been discontinued for this reason. He has been started on amlodipine. He was advised to monitor his blood pressure on the daily basis. He will follow up with Dr. Donovan nex t week with a repeat blood work. 4. Chronic obstructive pulmonary disease. 5. Tobacco dependence. 6. Hypertension. 7. Seizure disorder. 8. Obstructive sleep apnea. 9. Gastroesophageal reflux disease. 10. History of stroke. 11. History of renal cell carcinoma. 12. Dyslipidemia. 13. Peripheral neuropathy. 14. Anxiety and depression. Plan of care was discussed with the patient in detail. He stated understanding.
== END 2018-01-26 13:33 | disposition home or self-care (01) ==
LOC: ERS 17:03 → 2SW 20:25
PROVIDERS: ADMIT Family Medicine; ATTEND Family Medicine
DX: R07.89 Other chest pain (principal); R79.1 Abnormal coagulation profile; J44.9 Chronic obstructive pulmonary disease, unspecified; I12.9 Hypertensive chronic kidney disease with stage 1 through stage 4 chronic kidney disease, or unspecified chronic kidney disease; N18.4 Chronic kidney disease, stage 4 (severe); N17.9 Acute kidney failure, unspecified; G40.909 Epilepsy, unspecified, not intractable, without status epilepticus; K21.9 Gastro-esophageal reflux disease without esophagitis; G47.33 Obstructive sleep apnea (adult) (pediatric); E78.5 Hyperlipidemia, unspecified; F41.9 Anxiety disorder, unspecified; F32.9 Major depressive disorder, single episode, unspecified; G62.9 Polyneuropathy, unspecified; M54.5 Low back pain; G89.29 Other chronic pain; I25.10 Atherosclerotic heart disease of native coronary artery without angina pectoris; M32.9 Systemic lupus erythematosus, unspecified; F17.210 Nicotine dependence, cigarettes, uncomplicated; Z79.02 Long term (current) use of antithrombotics/antiplatelets; Z79.2 Long term (current) use of antibiotics; Z79.899 Other long term (current) drug therapy; Z88.0 Allergy status to penicillin; Z88.2 Allergy status to sulfonamides; Z95.810 Presence of automatic (implantable) cardiac defibrillator; Z90.49 Acquired absence of other specified parts of digestive tract; Z90.5 Acquired absence of kidney; Z98.890 Other specified postprocedural states; Z85.53 Personal history of malignant neoplasm of renal pelvis; Z86.73 Personal history of transient ischemic attack (TIA), and cerebral infarction without residual deficits
CPT/HCPCS: 71045; 74176; 78452; 78582; 80048 ×2; 80053; 82553; 83690; 83735 ×2; 83880; 84484 ×3; 85025 ×2; 85379; 86850; 86900; 86901; 87086; 93005; 93017; 93306; 94640 ×3; 94760 ×2; 96361 ×4; 96372; 96374; 96375; 96376; 99285; A9500; A9540; A9558; G0378 ×2; 36415; 81003; 81015; A4216; J1650; J2270; J2785; J3010; J7620

== ENCOUNTER 2018-02-08 09:50 | Outpatient (CLI) | payer MEDICARE ==
--- NOTE | 2018-02-08 11:39 | RAD ---
PA AND LATERAL CHEST XRAY: DATE: 02/08/18. HISTORY: Hypotension. COMPARISON: 01/04/18. FINDINGS: Dual-lead left subclavian cardiac pacemaking device remains in place and unchanged in position. Card iac silhouette and pulmonary vasculature are within normal limits. Calcified granuloma is again seen in the left mid lung zone. Lungs remain hyperexpanded but otherwise clear. There is flattening of the hemidiaphragms also again present. Vascular calcifications are seen at tortuous thoracic aorta. Degenerative change is noted in the spine. The chest is stable compared to the prior exam. IMPRESSION: 1. No acute cardiopulmonary process. 2. Chronic obstructive pulmonary disease. POS: [facility]
== END 2018-02-08 09:51 | disposition home or self-care (01) ==
LOC: RAD-FRANK 09:50
PROVIDERS: ATTEND Nurse Practitioner Family
DX: I10 Essential (primary) hypertension (principal); J44.9 Chronic obstructive pulmonary disease, unspecified
CPT/HCPCS: 71046

== ENCOUNTER 2018-04-05 00:19 | Emergency (ER) | payer MEDICARE, OTHER ==
[2018-04-05] MEDS ORDERED: Ketorolac Tromethamine 30 MG/ML VIAL ONE (01:10)
== END 2018-04-05 01:43 | disposition home or self-care (01) ==
LOC: ERS 00:19
DX: M54.41 Lumbago with sciatica, right side (principal); Z71.6 Tobacco abuse counseling; I10 Essential (primary) hypertension; J44.9 Chronic obstructive pulmonary disease, unspecified; Z86.73 Personal history of transient ischemic attack (TIA), and cerebral infarction without residual deficits; F41.9 Anxiety disorder, unspecified; F17.210 Nicotine dependence, cigarettes, uncomplicated; Z79.899 Other long term (current) drug therapy
CPT/HCPCS: 96372; 99406; J1885

== ENCOUNTER 2018-04-06 12:21 | Outpatient (CLI) | payer MEDICARE, OTHER | END 2018-04-06 12:22 | disposition home or self-care (01) | LOC: BICCT 12:21 | PROVIDERS: ATTEND Nurse Practitioner Family | DX: M54.5 Low back pain (principal); G95.89 Other specified diseases of spinal cord | CPT/HCPCS: 72131 ==

== ENCOUNTER 2018-04-12 09:46 | Emergency (ER) | payer MEDICARE ==
[2018-04-12 10:22] LABS: #Basophils 0.1 thou/uL (0.0-0.2); #Eosinphils 0.6 thou/uL (0.0-0.7); #Lymphocytes 2.1 thou/uL (1.20-3.40); #Monocytes 0.8 thou/uL (0.11-0.59); #Neutrophils 4.5 thou/uL (1.40-6.50); %Basophils 0.9 % (0.0-1.0); %Eosinophils 7.2 % (0.0-10.0); %Lymphocytes 25.9 % (21.0-51.0); %Monocytes 9.9 % (0.0-10.0); %Neutrophils 56.2 % (42.0-75.0); Hemoglobin 13.3 g/dL (14.0-18.0); Mean Corpuscular HGB CONC 33.4 g/dL (32.0-36.0); Mean Corpuscular Hemoglobin 33.5 pg (27.0-31.0); Mean Platelet Volume 8.3 fL (7.4-10.4); Platelet Count 151 thou/uL (130-400); RBC Distribution Width 12.9 % (11.5-14.5); Red Blood Cell (RBC) Count 3.97 mill/uL (4.70-6.10)
[2018-04-12] MEDS ORDERED: Dexamethasone 10 MG/ML VIAL ONE (10:29)
[2018-04-12] MEDS ORDERED: Fentanyl 100 MCG/2 ML VIAL ONE (10:29)
--- NOTE | 2018-04-12 11:51 | RAD ---
3 VIEWS RIGHT FOOT: Date: 04/12/18 COMPARISON: None. HISTORY: Right foot trauma with pain in right leg for 1 week and shortness of breath. FINDINGS: Three views of the right foot show no evidence of acute fracture or dislocation. Mild diffuse soft ti ssue swelling is seen. No degenerative changes are present. IMPRESSION: No evidence of acute osseous abnormality. POS: [facility]
== END 2018-04-12 11:10 | disposition home or self-care (01) ==
LOC: ERS 09:46
DX: S90.31XA Contusion of right foot, initial encounter (principal); M54.32 Sciatica, left side; J44.9 Chronic obstructive pulmonary disease, unspecified; I12.9 Hypertensive chronic kidney disease with stage 1 through stage 4 chronic kidney disease, or unspecified chronic kidney disease; N18.3 Chronic kidney disease, stage 3 (moderate); F17.210 Nicotine dependence, cigarettes, uncomplicated; F41.9 Anxiety disorder, unspecified; Z79.899 Other long term (current) drug therapy; W22.8XXA Striking against or struck by other objects, initial encounter
CPT/HCPCS: 85025; 93005; 96372; J1100; J3010

== ENCOUNTER 2018-04-28 16:50 | Emergency (ER) | payer MEDICARE, OTHER ==
[2018-04-28 17:30] LABS: Lavender RECEIVED; Red RECEIVED
[2018-04-28 17:32] LABS: #Basophils 0.1 thou/uL (0.0-0.2); #Eosinphils 0.4 thou/uL (0.0-0.7); #Monocytes 0.7 thou/uL (0.11-0.59); #Neutrophils 4.3 thou/uL (1.40-6.50); %Basophils 0.9 % (0.0-1.0); %Eosinophils 5.7 % (0.0-10.0); %Lymphocytes 26.9 % (21.0-51.0); %Monocytes 9.1 % (0.0-10.0); %Neutrophils 57.4 % (42.0-75.0); Hemoglobin 13.3 g/dL (14.0-18.0); Mean Corpuscular HGB CONC 33.4 g/dL (32.0-36.0); Mean Corpuscular Hemoglobin 33.3 pg (27.0-31.0); Mean Corpuscular Volume 99.9 fL (78.0-98.0); Mean Platelet Volume 8.7 fL (7.4-10.4); Platelet Count 154 thou/uL (130-400); RBC Distribution Width 12.7 % (11.5-14.5); Red Blood Cell (RBC) Count 3.98 mill/uL (4.70-6.10); White Blood Cell (WBC) Count 7.5 thou/uL (4.8-10.8)
[2018-04-28 17:53] LABS: ALT (SGPT) 11 U/L (8-55); AST (SGOT) 17 U/L (5-34); Albumin 3.9 g/dL (3.4-4.8); Alkaline Phosphatase 158 U/L (40-150); Anion Gap 12 mmol/L (10-20); BUN (Urea Nitrogen) 23 mg/dL (8.4-25.7); Bilirubin, Total 0.3 mg/dL (0.2-1.2); CK (CPK) 47 U/L (30-200); Calc. Creatinine Clearance 0 mL/min (70-130); Calcium 8.6 mg/dL (7.8-10.44); Carbon Dioxide 26 mmol/L (23-31); Chloride 106 mmol/L (98-107); Estimated GFR-MDRD 33; Globulin 2.8 g/dL (2.4-3.5); Glucose 96 mg/dL (80-115); Lipase 50 U/L (8-78); Potassium 4.5 mmol/L (3.5-5.1); Protein, Total 6.7 g/dL (5.8-8.1); Sodium 139 mmol/L (136-145)
[2018-04-28 17:57] LABS: CKMB 1.4 ng/mL (0-6.6); Troponin I Less than 0.010 ng/mL (< 0.028)
--- NOTE | 2018-04-28 20:49 | CT ---
NONCONTRAST HEAD CT 04/28/18 HISTORY: Altered mental status. Hypertension. COMPARISON: 07/22/16. FINDINGS: Stable volume loss involving the left frontal lobe, left and right cerebellar hemispheres. There is e x vacuo dilatation of the occipital horn of the left lateral ventricle. The findings are similar to t he previous exam. The remainder of the cerebrum demonstrates preservation of cortical fraser-white rodrigo er differentiation. No evidence of hydrocephalus. No parenchymal hemorrhage or extra-axial hematoma. No midline shift. Basilar cisterns are patent. Calvarium is intact. Adequate aeration of the sinuses and mastoid air cells. Remote infarct involving the right cerebellar hemisphere is noted. IMPRESSION: No acute intracranial process. POS: [facility]
== END 2018-04-28 19:48 | disposition home or self-care (01) ==
LOC: ERS 16:50
DX: I12.9 Hypertensive chronic kidney disease with stage 1 through stage 4 chronic kidney disease, or unspecified chronic kidney disease (principal); N18.3 Chronic kidney disease, stage 3 (moderate); J44.9 Chronic obstructive pulmonary disease, unspecified; F17.210 Nicotine dependence, cigarettes, uncomplicated; Z86.73 Personal history of transient ischemic attack (TIA), and cerebral infarction without residual deficits; Z79.899 Other long term (current) drug therapy
CPT/HCPCS: 36415; 70450; 80053; 80185; 82550; 82553; 83690; 84484; 85025; 93005

== ENCOUNTER 2018-05-03 12:39 | Outpatient (CLI) | payer MEDICARE | END 2018-05-03 12:40 | disposition home or self-care (01) | LOC: BICULT 12:39 | PROVIDERS: ATTEND Internal Medicine Nephrology | DX: Z48.816 Encounter for surgical aftercare following surgery on the genitourinary system (principal); N18.3 Chronic kidney disease, stage 3 (moderate); N28.1 Cyst of kidney, acquired; Z90.5 Acquired absence of kidney | CPT/HCPCS: 76770 ==

== ENCOUNTER 2018-07-02 22:07 | Emergency (ER) | payer MEDICARE, OTHER ==
[2018-07-02 22:41] LABS: #Basophils 0.1 thou/uL (0.0-0.2); #Eosinphils 0.4 thou/uL (0.0-0.7); #Lymphocytes 2.8 thou/uL (1.20-3.40); #Monocytes 0.7 thou/uL (0.11-0.59); #Neutrophils 4.4 thou/uL (1.40-6.50); %Basophils 1.2 % (0.0-1.0); %Eosinophils 4.6 % (0.0-10.0); %Lymphocytes 33.4 % (21.0-51.0); %Monocytes 7.8 % (0.0-10.0); %Neutrophils 53.1 % (42.0-75.0); Hemoglobin 14.3 g/dL (14.0-18.0); Mean Corpuscular HGB CONC 33.5 g/dL (32.0-36.0); Mean Corpuscular Hemoglobin 33.4 pg (27.0-31.0); Mean Corpuscular Volume 99.9 fL (78.0-98.0); Mean Platelet Volume 9.1 fL (7.4-10.4); Platelet Count 158 thou/uL (130-400); Red Blood Cell (RBC) Count 4.27 mill/uL (4.70-6.10); White Blood Cell (WBC) Count 8.3 thou/uL (4.8-10.8)
--- NOTE | 2018-07-02 22:53 | RAD ---
RADIOGRAPH CHEST 1 VIEW: 07/02/18 HISTORY: 67-year-old male with dyspnea. FINDINGS: There is hyperinflation of the lungs, consistent with COPD. The thoracic aorta is tortuous and ectat ic. There is no evidence of air space density, pneumothorax, or pulmonary edema. The lateral costop hrenic angles are sharp. There is no cardiomegaly. There is a dual lead left subclavian pacemaker. IMPRESSION: 1) No acute pulmonary findings. 2) Emphysema. 3) Ectasia of thoracic aorta. 4) Pacemaker. jn [] POS: [facility]
[2018-07-02 22:58] LABS: ALT (SGPT) 9 U/L (8-55); AST (SGOT) 14 U/L (5-34); Albumin 4.1 g/dL (3.4-4.8); Alkaline Phosphatase 142 U/L (40-150); Anion Gap 12 mmol/L (10-20); BUN (Urea Nitrogen) 22 mg/dL (8.4-25.7); Bilirubin, Total 0.4 mg/dL (0.2-1.2); Calc. Creatinine Clearance 0 mL/min (70-130); Calcium 8.8 mg/dL (7.8-10.44); Carbon Dioxide 26 mmol/L (23-31); Chloride 107 mmol/L (98-107); Estimated GFR-MDRD 29; Glucose 138 mg/dL (80-115); Magnesium 2.2 mg/dL (1.6-2.6); Protein, Total 7.1 g/dL (5.8-8.1); Sodium 141 mmol/L (136-145)
[2018-07-02 23:03] LABS: CKMB 1.2 ng/mL (0-6.6); Troponin I Less than 0.010 ng/mL (< 0.028)
== END 2018-07-03 01:40 | disposition home or self-care (01) ==
LOC: ERS 22:07
DX: J44.1 Chronic obstructive pulmonary disease with (acute) exacerbation (principal); N17.9 Acute kidney failure, unspecified; N18.3 Chronic kidney disease, stage 3 (moderate); F41.9 Anxiety disorder, unspecified; F17.210 Nicotine dependence, cigarettes, uncomplicated; Z86.73 Personal history of transient ischemic attack (TIA), and cerebral infarction without residual deficits
CPT/HCPCS: 36415; 71045; 80053; 82553; 83735; 84484; 85025; 93005; 96360

== ENCOUNTER 2018-07-07 14:35 | Observation (INO) | payer MEDICARE ==
--- NOTE | 2018-07-07 15:06 | RAD ---
AP CHEST: History: Chest pain. Shortness of breath. Date: 07-07-18 Comparison: 07-02-18 FINDINGS: AP chest demonstrates a dual-lead intracardiac pacing device in place. Ectasia of the aorta is seen. No evidence of effusions, pneumonia or pneumothorax seen. IMPRESSION: Ectasia of the aorta and pulmonary vascular congestion. No evidence of acute intrathoracic abnormalit y seen. POS: [facility]
[2018-07-07] MEDS ORDERED: Nitroglycerin 2% Ointment 1 INCH/1 GM Packet ONE (15:23)
[2018-07-07 15:35] LABS: #Eosinphils 0.2 thou/uL (0.0-0.7); #Lymphocytes 1.7 thou/uL (1.20-3.40); #Neutrophils 8.5 thou/uL (1.40-6.50); %Basophils 0.4 % (0.0-1.0); %Eosinophils 1.5 % (0.0-10.0); %Lymphocytes 14.7 % (21.0-51.0); %Monocytes 8.7 % (0.0-10.0); %Neutrophils 74.6 % (42.0-75.0); Hemoglobin 14.5 g/dL (14.0-18.0); Mean Corpuscular HGB CONC 33.3 g/dL (32.0-36.0); Mean Corpuscular Hemoglobin 33.5 pg (27.0-31.0); Mean Platelet Volume 9.1 fL (7.4-10.4); Platelet Count 164 thou/uL (130-400); RBC Distribution Width 12.8 % (11.5-14.5); Red Blood Cell (RBC) Count 4.35 mill/uL (4.70-6.10); White Blood Cell (WBC) Count 11.4 thou/uL (4.8-10.8)
[2018-07-07 16:01] LABS: ALT (SGPT) 25 U/L (8-55); AST (SGOT) 83 U/L (5-34); Albumin 4.1 g/dL (3.4-4.8); Alkaline Phosphatase 162 U/L (40-150); Anion Gap 14 mmol/L (10-20); BUN (Urea Nitrogen) 27 mg/dL (8.4-25.7); Bilirubin, Total 0.8 mg/dL (0.2-1.2); CK (CPK) 94 U/L (30-200); Calc. Creatinine Clearance 0 mL/min (70-130); Calcium 9.2 mg/dL (7.8-10.44); Carbon Dioxide 25 mmol/L (23-31); Chloride 107 mmol/L (98-107); Estimated GFR-MDRD 26; Globulin 2.9 g/dL (2.4-3.5); Glucose 126 mg/dL (80-115); Potassium 4.2 mmol/L (3.5-5.1); Sodium 142 mmol/L (136-145)
[2018-07-07 16:04] LABS: CKMB 1.7 ng/mL (0-6.6); Troponin I Less than 0.010 ng/mL (< 0.028)
[2018-07-07] MEDS ORDERED: Acetaminophen/Codeine 30-300mg Tablet PO PRN (17:06)
[2018-07-07] MEDS ORDERED: PROVENTIL INHALER 6.7 G (200 INHALATIONS) INH PRN (17:06)
[2018-07-07] MEDS ORDERED: hydrALAZINE 20 MG/ML VIAL SLOW IVP PRN (17:08)
[2018-07-07] MEDS ORDERED: cloNIDine 0.1 MG TAB PO PRN (17:08)
[2018-07-07] MEDS ORDERED: Ondansetron HCl/PF 4 MG/2 ML Vial IVP PRN (17:08)
[2018-07-07] MEDS ORDERED: Senokot S 8.6-50 MG TAB PO PRN (17:08)
[2018-07-07] MEDS ORDERED: Ondansetron ODT 4 MG TAB PO PRN (17:08)
[2018-07-07] MEDS ORDERED: Nitroglycerin 0.4 MG TAB (25 Tab Bottle) PO PRN (17:08)
[2018-07-07] MEDS ORDERED: Acetaminophen 325 MG TAB PO PRN (17:08)
[2018-07-07] MEDS ORDERED: Sodium Chloride 0.9% 1,000 ML IV SCH (17:15)
--- NOTE | 2018-07-07 17:55 | HP ---
DATE OF ADMISSION: 07/07/2018 PRIMARY CARE PHYSICIAN: ELLEN Barbosa. PRIMARY COOKER MECHANIC: Abdirashid Stephens M.D. PRIMARY SIGNS AND DISPLAYS SALESPERSON: Nahid Donovan M.D. CHIEF COMPLAINT: Chest discomfort. HISTORY OF PRESENT ILLNESS: The patient is a 67-year-old male with hypertension, COPD, and CKD, pres ented to the emergency room with chest discomfort. The chest discomfort started this morning while h e was at home resting. It was sudden onset, precordial, without any radiation. He felt lightheaded and dizzy with some nausea. He was also diaphoretic. His chest pain resolved completely after nitro spray. He denies any chest discomfort at this time. No fever, chills, recent immobilization, travel or heartburn reported. His pain was severe in intensity, more or less constant. It was nonreproduc ible. PAST MEDICAL HISTORY: Significant for, 1. Chronic kidney disease stage 3. 2. Chronic obstructive pulmonary disease. 3. Tobacco dependence. 4. Hypertension. 5. Seizure disorder. 6. Obstructive sleep apnea. 7. Gastroesophageal reflux disease. 8. History of cerebrovascular accident. 9. History of renal cell carcinoma. 10. Dyslipidemia. 11. Peripheral neuropathy. 12. Anxiety and depression. PAST SURGICAL HISTORY: 1. Pacemaker placement. 2. Appendectomy. 3. Right nephrectomy. 4. Cardiac catheterization. 5. Uvulectomy for sleep apnea and deviated nasal septum repair. ALLERGIES: The patient is allergic to SULFA AND PENICILLIN. CURRENT HOME MEDICATIONS: Confirmed with the patient Tylenol No. 3 as needed, albuterol inhaler as n eeded, bupropion extended release 150 mg daily, Plavix 75 mg daily, Cymbalta 30 mg b.i.d., Keppra 500 mg b.i.d., Procardia-XL 60 mg daily, Protonix 40 mg daily, Dilantin 200 mg b.i.d. SOCIAL HISTORY: The patient currently lives at home, continues to smoke up to 1 pack a day since age of 14. He lives at home with his family. He makes his own decisions with the help of his family. No significant use of alcohol, no drug use. FAMILY HISTORY: Negative for premature coronary artery disease. REVIEW OF SYSTEMS: The following complete review of systems was negative, unless otherwise mentioned in the HPI or below: Constitutional: Weight loss or gain, ability to conduct usual activities. Skin: Rash, itching. Eyes: Double vision, pain. ENT/Mouth: Nose bleeding, neck stiffness, pain, tenderness. Cardiovascular: Palpitations, dyspnea on exertion, orthopnea. Respiratory: Shortness of breath, wheezing, cough, hemoptysis, fever or night sweats. Gastrointestinal: Poor appetite, abdominal pain, heartburn, nausea, vomiting, constipation, or diarrhea. Genitourinary: Urgency, frequency, dysuria, nocturia. Musculoskeletal: Pain, swelling. Neurologic/Psychiatric: Anxiety, depression. Allergy/Immunologic: Skin rash, bleeding tendency. PHYSICAL EXAMINATION: VITAL SIGNS: In the emergency room showed temperature 97.9, respirations 16, pulse rate of 87, blood pressure 131/71 with O2 saturation 94% on room air. GENERAL: A 67-year-old male in no apparent distress. Chest discomfort resolved completely after nit rospray. HEENT: Head atraumatic, normocephalic. Sclerae are anicteric. Moist mucous membrane. No oral lesi on. NECK: Supple, no JVD, no carotid bruit. LUNGS: Essentially clear to auscultation bilaterally. No wheezing, rales or rhonchi. HEART: S1, S2 present. Regular rate and rhythm, 2/6 systolic murmur over the mitral area. No heave s or pulsation. ABDOMEN: Soft, nontender, bowel sounds present. EXTREMITIES: 2+ edema in bilateral lower extremities. No calf tenderness. SKIN: Warm and dry. LYMPH NODES: No palpable lymph nodes in the neck. PERIPHERAL VASCULAR: Radial pulses palpable bilaterally. MUSCULOSKELETAL: No joint swelling or tenderness. LABORATORY FINDINGS: CBC showed WBC 11.4 with hemoglobin 14.5, hematocrit 43.7, platelet 164. Chemi stries showed sodium 142, potassium 4.2, chloride 107, bicarbonate 25, BUN 27, creatinine 2.5, glucos e 126. LFTs in normal range. BNP 92.6, troponins were negative. Chest x-ray by my review was negative for infiltrate. EKG by my review showed paced rhythm with right bundle-branch block. IMPRESSION: 1. Chest pain, resolved with nitroglycerin. 2. Chronic kidney disease stage 4. 3. Chronic obstructive pulmonary disease. 4. Ongoing tobacco abuse. 5. Hypertension. 6. Seizure disorder. 7. Anxiety and depression. 8. Obstructive sleep apnea treated with uvulectomy. 9. Gastroesophageal reflux disease. 10. History of cerebrovascular without significant residual deficit, currently on Plavix. 11. History of renal cell carcinoma, status post right nephrectomy. 12. Dyslipidemia. 13. Peripheral neuropathy. 14. Slightly abnormal LFTs of unclear etiology. 15. PENICILLIN and SULFA allergy. 16. Macrocytosis with normal vitamin B12, folic acid in the past. PLAN: The patient will be monitored in the telemetry unit as observation. He had a negative stress test in January of this year. He also has chronic kidney disease stage 4. Echocardiogram in January normal left ventricular ejection fraction of 50%-55%. We will consult Cardiology. Continue Plav ix. Add low dose aspirin. We will keep him n.p.o. past midnight. We will resume all of his home me dications including Procardia-XL Dilantin and Protonix. Vital signs q.4 hourly. Plan of care was discussed with the patient in detail. He stated understanding.
[2018-07-07 18:44] LABS: Troponin I Less than 0.010 ng/mL (< 0.028)
[2018-07-07 19:07] VITALS: BMI 29.7
[2018-07-07] MEDS: DULoxetine 30 MG CAP PO SCH (19:48)
[2018-07-07] MEDS: levETIRAcetam 500 MG TAB PO SCH (19:48)
[2018-07-07 22:06] LABS: Troponin I Less than 0.010 ng/mL (< 0.028)
[2018-07-08 04:51] LABS: Anion Gap 8 mmol/L (10-20); BUN (Urea Nitrogen) 27 mg/dL (8.4-25.7); Calc. Creatinine Clearance 42 mL/min (70-130); Calcium 8.8 mg/dL (7.8-10.44); Carbon Dioxide 29 mmol/L (23-31); Chloride 111 mmol/L (98-107); Estimated GFR-MDRD 28; Glucose 93 mg/dL (80-115); Potassium 4.3 mmol/L (3.5-5.1); Sodium 144 mmol/L (136-145)
[2018-07-08] MEDS: Aspirin 81 mg Enteric Coated Tablet PO SCH (07:53)
[2018-07-08] MEDS: NIFEdipine XL 60 MG TAB PO SCH (07:53)
[2018-07-08] MEDS: DULoxetine 30 MG CAP PO SCH ×2 (07:53→20:17)
[2018-07-08] MEDS: Bupropion 150 MG SR TAB PO SCH (07:54)
[2018-07-08] MEDS: levETIRAcetam 500 MG TAB PO SCH ×2 (07:54→20:18)
[2018-07-08] MEDS ORDERED: Clopidogrel Bisulfate 75 MG TAB PO SCH (09:00)
[2018-07-08] MEDS: Sodium Chloride 0.9% 1,000 ML IV SCH (09:15)
[2018-07-08 11:49] LABS: Cardiac Risk 2.8 (Less than 4.5)
--- NOTE | 2018-07-08 22:37 | PDOC.PN ---
- Subjective Encounter Start Date: 07/08/18 Encounter Start Time: 10:00 Patient seen and examined for CP. No new complaints. No overnight events - Objective Resuscitation Status: Resuscitation Status FULL:Full Resuscitation MAR Reviewed: Yes Vital Signs & Weight: Vital Signs (12 hours) Temp Pulse Resp BP BP Pulse Ox 07/08/18 19:09 98.6 F 76 15 159/94 H 96 07/08/18 17:10 77 16 99 07/08/18 15:43 99.1 F 70 18 163/88 H 96 07/08/18 11:28 98.6 F 60 18 157/87 H 96 Weight Weight 219 lb 9 oz I&O: 07/07/18 07/08/18 07/09/18 06:59 06:59 06:59 Intake Total 716 750 Output Total 425 1065 Balance 291 -315 Result Diagrams: 07/07/18 15:22 07/08/18 04:19 EKG Reviewed by me: Yes (Tele SR) Phys Exam - Physical Examination Constitutional: NAD Neck: no JVD Respiratory: no wheezing, no rales, no rhonchi, clear to auscultation bilateral Cardiovascular: RRR, no rub Gastrointestinal: soft, non-tender, no distention, positive bowel sounds Musculoskeletal: no edema Neurological: non-focal, moves all 4 limbs Psychiatric: A&O x 3 Dx/Plan - Plan DVT proph w/SCDs IMPRESSION: 1. Chest pain, resolved with nitroglycerin. 2. Chronic kidney disease stage 4. 3. Chronic obstructive pulmonary disease. 4. Ongoing tobacco abuse. 5. Hypertension. 6. Seizure disorder. 7. Anxiety and depression. 8. Obstructive sleep apnea treated with uvulectomy. 9. Gastroesophageal reflux disease. 10. History of cerebrovascular without significant residual deficit, currently on Plavix. 11. History of renal cell carcinoma, status post right nephrectomy. 12. Dyslipidemia. 13. Peripheral neuropathy. 14. Slightly abnormal LFTs of unclear etiology. 15. PENICILLIN and SULFA allergy. 16. Macrocytosis with normal vitamin B12, folic acid in the past. PLAN: Cont ASA/Plavix Cont IV hydration Cardiac Cath in AM Cont current meds as below BMP in AM Review of Systems - Review of Systems Respiratory: negative: Cough, Dry, Shortness of Breath, Hemoptysis, SOB with Excertion, Pleuritic Pain, Sputum, Wheezing Cardiovascular: negative: chest pain, palpitations, orthopnea, paroxysmal nocturnal dyspnea, edema, light headedness, other Gastrointestinal: negative: Nausea, Vomiting, Abdominal Pain, Diarrhea, Constipation, Melena, Hematochezia, Other - Medications/Allergies Allergies/Adverse Reactions: Allergies Allergy/AdvReac Type Severity Reaction Status Date / Time Penicillins Allergy Verified 06/09/18 12:55 Sulfa (Sulfonamide Allergy Verified 06/09/18 12:55 Antibiotics) Medications: Current Medications Acetaminophen (Tylenol) 650 mg PO Q4H PRN PRN Reason: Headache/Fever/Mild Pain (1-3) Acetaminophen/Codeine Phosphate (Tylenol #3) 1 tab PO Q6HR PRN PRN Reason: Severe Pain (7-10) Albuterol Sulfate (Proventil Hfa) 2 puff INH Q6HR PRN PRN Reason: SOB &/or Wheezing Albuterol/Ipratropium (Duoneb) 3 ml NEB [id number] PRN PRN Reason: SOB &/or Wheezing Last Admin: 07/08/18 17:10 Dose: 3 ml Aspirin (Ecotrin) 81 mg PO DAILY [facility] Last Admin: 07/08/18 07:53 Dose: 81 mg Bupropion HCl (Wellbutrin Sr) 150 mg PO DAILY [facility] Last Admin: 07/08/18 07:54 Dose: 150 mg Clonidine (Catapres) 0.1 mg PO Q4H PRN PRN Reason: Systolic BP > 180 Duloxetine HCl (Cymbalta) 30 mg PO BID [facility] Last Admin: 07/08/18 20:17 Dose: 30 mg Hydralazine HCl (Apresoline) 10 mg SLOW IVP Q4H PRN PRN Reason: SBP Greater Than 180 Sodium Chloride (Normal Saline 0.9%) 1,000 mls @ 100 mls/hr IV .Q10H [facility] Last Admin: 07/08/18 09:15 Dose: 1,000 mls Levetiracetam (Keppra) 500 mg PO BID [facility] Last Admin: 07/08/18 20:18 Dose: 500 mg Nifedipine (Procardia Xl) 60 mg PO DAILY [facility] Last Admin: 07/08/18 07:53 Dose: 60 mg Nitroglycerin (Nitrostat) 0.4 mg PO Q5MIN PRN PRN Reason: Chest Pain Ondansetron HCl (Zofran Odt) 4 mg PO Q6H PRN PRN Reason: Nausea/Vomiting Ondansetron HCl (Zofran) 4 mg IVP Q6H PRN PRN Reason: Nausea/Vomiting Pantoprazole Sodium (Protonix) 40 mg PO DAILY [facility] Last Admin: 07/08/18 07:53 Dose: 40 mg Phenytoin Sodium (Dilantin Er) 200 mg PO BID [facility] Last Admin: 07/08/18 20:18 Dose: 200 mg Senna/Docusate Sodium (Senokot S) 2 tab PO BID PRN PRN Reason: Constipation
[2018-07-09] MEDS: Sodium Chloride 0.9% 1,000 ML IV SCH ×4 (00:07→20:17)
--- NOTE | 2018-07-09 02:26 | CON ---
DATE OF CONSULTATION: 07/08/2018 HISTORY OF PRESENT ILLNESS: Saw Hester is a 67-year-old white male, initially evaluated in 01/2007. At that time, he had 2 weeks of visual abnormalities and difficulties seeing as well as seeing bright lights. He was seen by an director mission who said he did not have any problems with his eyes. He eventually saw Dr. Anton García, who felt that he may have had a stroke. MRI was obtained , which showed several strokes. He also has had problems with worsening vision and was admitted to [facility] for further evaluation. At that time, he denied any chest pain or shortness of breath. He was on verapamil 240 mg daily for hypertension, that was increased to 240 mg b.i.d., and he had slowing of his heart rate, but denied any lightheadedness, syncope or dizziness. This was then reduced back to 240 mg daily and Mavik was added for blood pressure control. He also was placed on a statin for LDL greater than 100. In 04/2007, he complained of some lightheadedness and dizziness. He had been placed on Chantix for smoking cessation. Heart rates have been down to 45 per minute at home. He was placed on 30-day monitor and had another episode of dizziness; however, his heart rates were in the 60s. There did not appear to be any correlation with his lightheadedness and dizziness with any significant bradycardia. It was felt that he certainly had sinus node dysfunction and ultimately would need a pacemaker. He also was encouraged to discontinue smoking. He was not seeing again until 03/2008 when he was admitted to [facility] with bradycardia with heart rates dropping into the 40s. He had substernal chest tightness at the time. This occurred at rest, not with exertion. He was originally admitted with recurrent seizures. He was given Dilantin and Ativan for seizures, and seizures became controlled. He was placed on Norvasc for blood pressure, and he is asymptomatic in regard to his bradycardia when he was discharged. In 05/2008, blood pressure was well controlled. He complained of substernal tightness at rest and none with activity. He then presented on 10/14 with multiple seizures while sleeping. He was intubated and brought to the hospital. He began to have severe bradycardic episodes with heart rates down into the 30s. It was felt that he had status epilepticus. With heart rates in the 30s, he underwent permanent pacemaker placement without incident. In 06/2009, he was admitted with chest discomfort and underwent adenosine Cardiolite testing, which revealed no evidence of ischemia. He was last seen in 03/2009 in the office. He then was admitted in 12/2010 with left-sided chest discomfort that radiating to his right side of his chest as well as some pain in his back that became worse when he came to the emergency room. He was given aspirin, nitro paste, and his pain apparently resolved. Cardiac enzymes were unremarkable. He underwent Cardiolite testing, which revealed apical scar with a small area of ischemia in the anterior wall near the apex. There was mild apical hypokinesis with ejection fraction of 45%. He underwent cardiac catheterization, which revealed normal left ventricular function with ejection fraction of 50% to 55%. There was a 20% first diagonal, 20% proximal circumflex stenosis, 20% mid stenosis. The ramus had a 20% stenosis. The right coronary artery had a 30% proximal stenosis and distal plaquing. He has continued to be fairly noncompliant with office followups of his pacemaker. He was admitted here in with chest discomfort. He underwent adenosine Cardiolite testing, which revealed no evidence of ischemia. His chest pain at that time was on the right side of his chest, went to the left and felt like a pressure sensation. Due to his elevated creatinine, he underwent a ventilation perfusion scan, which revealed findings consistent with severe COPD, but no evidence of pulmonary embolus. He states that recently he started walking 2-3 days prior to admission. On the day of admission, he walked one-half mile from his house and was walking the one -half mile back, and he became extremely weak and dizzy. He was so weak that he had to sit down in a neighbor's yard and then she gave him a ride home. He then went inside, drank some water and was going to take a nap and then had an onset of severe left-sided chest pressure and tightness. He was short of breath and diaphoretic, but he had no nausea or vomiting. The pain was not pleuritic in nature. After 10 or 15 minutes, he called paramedics and they brought him from [facility] to the emergency room here. Upon arrival here, he was given aspirin, sublingual nitroglycerin, and nitro paste was applied. He states his pain rapidly resolved. He has not had any recurrence of the pain. Total duration of the pain was 1 hour PAST MEDICAL HISTORY: Chronic kidney disease, history of renal cell carcinoma, COPD, hypertension, seizure disorder, obstructive sleep apnea, history of cerebrovascular accident, hyperlipidemia, peripheral neuropathy, anxiety and depression. OPERATIONS: Include palate and sinus surgery, pacemaker placement, appendectomy , right nephrectomy for renal cell carcinoma in 1994. MEDICATIONS: Tylenol No. 3 p.r.n., albuterol 2 puffs q.6 hours p.r.n., Plavix 75 mg daily, Cymbalta 30 b.i.d., levetiracetam 500 mg b.i.d., nifedipine 60 daily, Protonix 40 daily, Dilantin 200 mg b.i.d. ALLERGIES: PENICILLIN AND SULFA. SOCIAL HISTORY: He continues to smoke one pack per day. In the past, he smoked up to 2 packs per day. He does not drink. He is retired from the [employer]. FAMILY HISTORY: Negative for CABG. REVIEW OF SYSTEMS: Twelve-point review of systems otherwise unremarkable. PHYSICAL EXAMINATION: VITAL SIGNS: Blood pressure 163/88, pulse of 70. HEENT: PERRL. NECK: Supple. CHEST: Clear. CARDIAC EXAMINATION: S1 and S2 are normal, without any S3, S4 or murmurs. Carotid upstrokes are normal, without bruits. ABDOMEN: Normal bowel sounds, without tenderness, organomegaly. EXTREMITIES: Revealed no clubbing, cyanosis or edema. NEUROLOGIC: Grossly intact. SKIN: Warm and dry. LABORATORY DATA AND X-RAY FINDINGS: EKG reveals atrial pacing and right bundle- branch block, left axis deviation. White count 11,400, hemoglobin 14.5, hematocrit 43.7, platelets 164,000. Sodium 144, potassium 4.3, chloride 111, carbon dioxide 29, BUN 27, creatinine 2.34. Creatinine on admission was 2.50. IMPRESSION: 1. Episode of exertion-related chest discomfort with negative cardiac enzymes. 2. Normal Cardiolite in 01/2018. 3. Second admission in approximately 6 months for chest discomfort. 4. Minimal coronary artery disease on catheterization in 2010. 5. Status post pacemaker, 22 months left on the generator. 6. Noncompliance with followup. 7. Hypertension. 8. Anxiety/depression. 9. Hypercholesterolemia. 10. Smoker. 11. History of renal cell carcinoma, status post right nephrectomy. 12. History of left occipital cerebrovascular accident. 13. Obstructive sleep apnea. 14. History of seizure. 15. Chronic obstructive pulmonary disease. 16. Gastroesophageal reflux disease. PLAN: Situation was discussed with the patient. It was felt that serious consideration should be given to cardiac catheterization with his second admission over 6 months for chest discomfort. This episode sounds more anginal related than what he had in January. I do feel that he requires a good 24 hours of continuous IV hydration prior to consideration of catheterization. Catheterization will be performed in the biplane room to minimize the amount of contrast used. However, we discussed the risks of catheterization including , myocardial infarction, dye reaction, vascular injury, CVA, transfusion, limb loss, renal loss, etc. We also discussed stent placement with additional risk of , myocardial infarction, emergent CABG, restenosis, stent thrombosis, etc. He is chronically on Plavix, and a drug-eluting stent will be placed if needed. He does not have any upcoming surgical procedures. PENELOPE
[2018-07-09 05:51] LABS: Anion Gap 11 mmol/L (10-20); BUN (Urea Nitrogen) 21 mg/dL (8.4-25.7); Calc. Creatinine Clearance 50 mL/min (70-130); Calcium 8.4 mg/dL (7.8-10.44); Carbon Dioxide 25 mmol/L (23-31); Chloride 109 mmol/L (98-107); Estimated GFR-MDRD 34; Glucose 90 mg/dL (80-115); Magnesium 2.2 mg/dL (1.6-2.6); Potassium 3.8 mmol/L (3.5-5.1); Sodium 141 mmol/L (136-145)
[2018-07-09] MEDS: Aspirin 81 mg Enteric Coated Tablet PO SCH (06:09)
[2018-07-09] MEDS: DULoxetine 30 MG CAP PO SCH ×2 (06:09→20:09)
[2018-07-09] MEDS: Bupropion 150 MG SR TAB PO SCH (06:09)
[2018-07-09] MEDS: NIFEdipine XL 60 MG TAB PO SCH (06:10)
[2018-07-09] MEDS: levETIRAcetam 500 MG TAB PO SCH ×2 (06:10→20:09)
[2018-07-09] MEDS ORDERED: Heparin 10,000 UNITS/1 ML VIAL ONE (06:45)
[2018-07-09] MEDS ORDERED: Lidocaine 1% (PF) 30 ML VIAL ONE (06:51)
[2018-07-09] MEDS ORDERED: Midazolam HCl 2 mg/2 ml Vial ONE (07:51)
[2018-07-09] MEDS ORDERED: Fentanyl 100 MCG/2 ML VIAL ONE (07:51)
[2018-07-09] MEDS ORDERED: Bivalirudin 250 MG VIAL ONE (08:21)
[2018-07-09] MEDS ORDERED: Clopidogrel Bisulfate 300 MG TAB ONE (08:21)
[2018-07-09] MEDS ORDERED: Nitroglycerin 100MG/250ML BOT 250 ML ONE (08:24)
[2018-07-09] MEDS ORDERED: Ipratropium Bromide 2.5 ml Neb ONE (08:43)
[2018-07-09] MEDS ORDERED: Morphine 2 MG/ML SYRINGE SLOW IVP PRN (09:28)
[2018-07-09] MEDS ORDERED: Sodium Chloride 0.9% 1,000 ML IV SCH (09:29)
[2018-07-09] MEDS ORDERED: Morphine 2 MG/ML SYRINGE ONE ×2 (10:14→13:11)
[2018-07-09] MEDS ORDERED: Iopamidol 370 76% 100 ML VIAL ONE (13:00)
[2018-07-09] MEDS ORDERED: Metoprolol Tartrate 50 MG TAB PO SCH (14:30)
--- NOTE | 2018-07-09 19:09 | CCL ---
PROCEDURE: Coronary arteriography, intracranial nitroglycerine, stent placement in the right posterior descending. INDICATION: Acute coronary syndrome. Patient was brought to cardiac chemical lab supervisor and the right groin was prepped and draped in usual fashion. 1% lidocaine was infiltrated. A 6-[place]izen [place] sheath was placed into the right femoral artery and heparin 3000 units given. A 6-[place]izen [place] Papi left 4 did not engage the left main and a 6-Citizen [place] Papi left 5 was used for left coronary arteriography. This was then removed and a 6-Citizen [place] Papi right 4 was used for right coronary arteriography. Angiomax bolus and drip were started. A 6-Citizen [place] Papi right 4 guide catheter was inserted. A floppy choice wire was advanced into the distal posterior descending. Emerge 2.0 x 15 mm balloon would not cross the lesion. This was removed and Emerge 1.5 x 15 mm balloon was inserted and was able to cross and the area was predilated. This was removed and the 2.0 x 15 mm balloon was reinserted and the area again was dilated. During the procedure, the patient received doses of intracoronary nitroglycerin 200 mcg. Synergy 3.5 x 28 mm stent was then positioned and deployed. There appeared to be some narrowing proximal to this. Intracoronary nitroglycerin was given. However, this: continued to show narrowing. Synergy 3.5 x 12 mm stent was then positioned and deployed. Final result was excellent. Sheaths were sutured in place. The patient also received Plavix 600 mg during the procedure. RESULTS: CORONARY ARTERIOGRAPHY:. 1. The left main had a 20% stenosis. 2. The LAD had a 30% proximal stenosis and was calcified in the proximal area. 3. The circumflex calcified proximally. There was 20 and 30% mid stenosis. 4. The right coronary artery had a 50% proximal stenosis and a 99% right posterior descending stenosis. INTERVENTION RESULTS: The initial lesion was 99%. The final lesion was 0%. IMPRESSION: 1. One vessel coronary artery disease (RCA). 2. Successful drug-eluting stent placement in the right posterior descending. [facility]
[2018-07-09] MEDS: Metoprolol Tartrate 50 MG TAB PO SCH (20:08)
--- NOTE | 2018-07-09 20:28 | PDOC.PN ---
- Subjective Encounter Start Date: 07/09/18 Encounter Start Time: 16:00 Patient seen and examined for CP. s/p Cath with stent placement. No new complaints. No overnight events - Objective Resuscitation Status: Resuscitation Status FULL:Full Resuscitation MAR Reviewed: Yes Vital Signs & Weight: Vital Signs (12 hours) Temp Pulse Resp BP BP Pulse Ox 07/09/18 20:20 96 07/09/18 20:18 96 07/09/18 20:04 197/110 H 07/09/18 19:18 98.3 F 74 20 193/112 H 93 L 07/09/18 09:28 60 25 H 183/104 H Weight Weight 219 lb 9 oz I&O: 07/08/18 07/09/18 07/10/18 06:59 06:59 06:59 Intake Total 716 3115 200 Output Total 425 2165 Balance 291 950 200 Result Diagrams: 07/07/18 15:22 07/09/18 04:41 EKG Reviewed by me: Yes (Tele SR) Phys Exam - Physical Examination Constitutional: NAD Cardiovascular: RRR, no rub Gastrointestinal: soft, non-tender, positive bowel sounds Musculoskeletal: no edema Neurological: moves all 4 limbs Dx/Plan - Plan DVT proph w/SCDs IMPRESSION: 1. Chest pain/CAD s/p RCA stent placement 2. Chronic kidney disease stage 4. 3. Chronic obstructive pulmonary disease. 4. Ongoing tobacco abuse. 5. Hypertension. 6. Seizure disorder. 7. Anxiety and depression. 8. Obstructive sleep apnea treated with uvulectomy. 9. Gastroesophageal reflux disease. 10. History of cerebrovascular without significant residual deficit, currently on Plavix. 11. History of renal cell carcinoma, status post right nephrectomy. 12. Dyslipidemia. 13. Peripheral neuropathy. 14. Slightly abnormal LFTs of unclear etiology. 15. PENICILLIN and SULFA allergy. 16. Macrocytosis with normal vitamin B12, folic acid in the past. PLAN: Cont ASA/Plavix/BB/Statins No ACEI due to CKD Cont IV hydration AM labs Cont current meds as below Review of Systems - Review of Systems Cardiovascular: negative: chest pain, palpitations, orthopnea, paroxysmal nocturnal dyspnea, edema, light headedness, other Gastrointestinal: negative: Nausea, Vomiting, Abdominal Pain, Diarrhea, Constipation, Melena, Hematochezia, Other - Medications/Allergies Allergies/Adverse Reactions: Allergies Allergy/AdvReac Type Severity Reaction Status Date / Time Penicillins Allergy Verified 06/09/18 12:55 Sulfa (Sulfonamide Allergy Verified 06/09/18 12:55 Antibiotics) Medications: Current Medications Acetaminophen (Tylenol) 650 mg PO Q4H PRN PRN Reason: Headache/Fever/Mild Pain (1-3) Last Admin: 07/09/18 00:08 Dose: 650 mg Acetaminophen/Codeine Phosphate (Tylenol #3) 1 tab PO Q6HR PRN PRN Reason: Severe Pain (7-10) Albuterol Sulfate (Proventil Hfa) 2 puff INH Q6HR PRN PRN Reason: SOB &/or Wheezing Albuterol/Ipratropium (Duoneb) 3 ml NEB [id number] PRN PRN Reason: SOB &/or Wheezing Last Admin: 07/09/18 20:18 Dose: 3 ml Aspirin (Aspirin Chewable) 81 mg PO DAILY [facility] Atorvastatin Calcium (Lipitor) 10 mg PO HS [facility] Last Admin: 07/09/18 20:09 Dose: 10 mg Bupropion HCl (Wellbutrin Sr) 150 mg PO DAILY [facility] Last Admin: 07/09/18 06:09 Dose: 150 mg Clonidine (Catapres) 0.1 mg PO Q4H PRN PRN Reason: Systolic BP > 180 Last Admin: 07/09/18 20:04 Dose: 0.1 mg Clopidogrel Bisulfate (Plavix) 75 mg PO DAILY [facility] Duloxetine HCl (Cymbalta) 30 mg PO BID [facility] Last Admin: 07/09/18 20:09 Dose: 30 mg Hydralazine HCl (Apresoline) 10 mg SLOW IVP Q4H PRN PRN Reason: SBP Greater Than 180 Sodium Chloride (Normal Saline 0.9%) 1,000 mls @ 100 mls/hr IV .Q10H [facility] Last Admin: 07/09/18 20:17 Dose: 1,000 mls Levetiracetam (Keppra) 500 mg PO BID [facility] Last Admin: 07/09/18 20:09 Dose: 500 mg Metoprolol Tartrate (Lopressor) 50 mg PO BID [facility] Last Admin: 07/09/18 20:08 Dose: 50 mg Morphine Sulfate (Morphine) 2 mg SLOW IVP Q4H PRN PRN Reason: Moderate Pain (4-6) Nifedipine (Procardia Xl) 60 mg PO DAILY [facility] Last Admin: 07/09/18 06:10 Dose: 60 mg Nitroglycerin (Nitrostat) 0.4 mg PO Q5MIN PRN PRN Reason: Chest Pain Ondansetron HCl (Zofran Odt) 4 mg PO Q6H PRN PRN Reason: Nausea/Vomiting Ondansetron HCl (Zofran) 4 mg IVP Q6H PRN PRN Reason: Nausea/Vomiting Pantoprazole Sodium (Protonix) 40 mg PO DAILY [facility] Last Admin: 07/09/18 06:10 Dose: 40 mg Phenytoin Sodium (Dilantin Er) 200 mg PO BID [facility] Last Admin: 07/09/18 20:08 Dose: 200 mg Senna/Docusate Sodium (Senokot S) 2 tab PO BID PRN PRN Reason: Constipation
[2018-07-09] MEDS ORDERED: Atorvastatin Calcium 10 MG TAB PO SCH (21:00)
[2018-07-09] MEDS ORDERED: Labetalol HCl 100 MG/20 ML VIAL SLOW IVP PRN (22:50)
[2018-07-09] MEDS ORDERED: cloNIDine 0.1 MG TAB PO PRN (22:50)
[2018-07-10 04:58] LABS: #Basophils 0.1 thou/uL (0.0-0.2); #Eosinphils 0.2 thou/uL (0.0-0.7); #Lymphocytes 1.4 thou/uL (1.20-3.40); #Monocytes 0.7 thou/uL (0.11-0.59); #Neutrophils 4.8 thou/uL (1.40-6.50); %Basophils 0.8 % (0.0-1.0); %Eosinophils 3.1 % (0.0-10.0); %Lymphocytes 19.2 % (21.0-51.0); %Monocytes 9.9 % (0.0-10.0); Hemoglobin 13.4 g/dL (14.0-18.0); Mean Corpuscular HGB CONC 32.2 g/dL (32.0-36.0); Mean Corpuscular Hemoglobin 32.4 pg (27.0-31.0); Mean Platelet Volume 9.2 fL (7.4-10.4); Platelet Count 136 thou/uL (130-400); RBC Distribution Width 12.8 % (11.5-14.5); Red Blood Cell (RBC) Count 4.13 mill/uL (4.70-6.10); White Blood Cell (WBC) Count 7.2 thou/uL (4.8-10.8)
[2018-07-10 05:02] LABS: ALT (SGPT) 50 U/L (8-55); AST (SGOT) 74 U/L (5-34); Albumin 3.7 g/dL (3.4-4.8); Alkaline Phosphatase 248 U/L (40-150); Anion Gap 10 mmol/L (10-20); BUN (Urea Nitrogen) 23 mg/dL (8.4-25.7); Bilirubin, Total 0.9 mg/dL (0.2-1.2); Calc. Creatinine Clearance 58 mL/min (70-130); Calcium 8.8 mg/dL (7.8-10.44); Carbon Dioxide 27 mmol/L (23-31); Chloride 104 mmol/L (98-107); Estimated GFR-MDRD 41; Globulin 2.7 g/dL (2.4-3.5); Glucose 89 mg/dL (80-115); Potassium 4.3 mmol/L (3.5-5.1); Protein, Total 6.4 g/dL (5.8-8.1); Sodium 137 mmol/L (136-145)
[2018-07-10] MEDS: DULoxetine 30 MG CAP PO SCH (08:30)
[2018-07-10] MEDS: NIFEdipine XL 60 MG TAB PO SCH (08:30)
[2018-07-10] MEDS: Bupropion 150 MG SR TAB PO SCH (08:30)
[2018-07-10] MEDS: levETIRAcetam 500 MG TAB PO SCH (08:31)
[2018-07-10] MEDS: Metoprolol Tartrate 50 MG TAB PO SCH (08:31)
[2018-07-10] MEDS: Sodium Chloride 0.9% 1,000 ML IV SCH (08:32)
[2018-07-10] MEDS ORDERED: Clopidogrel Bisulfate 75 MG TAB PO SCH (09:00)
[2018-07-10 11:57] VITALS: BP 139/95; TEMP 97.6
--- NOTE | 2018-07-10 14:11 | PDOC.PN ---
- Subjective Encounter Start Date: 07/10/18 Encounter Start Time: 14:09 Mr. Hester was seen today in follow-up of chest pain. He does not have any complaints today. - Objective Resuscitation Status: Resuscitation Status FULL:Full Resuscitation MAR Reviewed: Yes Vital Signs & Weight: Vital Signs (12 hours) Temp Pulse Pulse Pulse Resp BP BP 07/10/18 11:38 97.6 F 84 20 07/10/18 09:02 71 84 167/88 H 172/97 H 07/10/18 08:30 71 07/10/18 07:11 98.1 F 71 20 07/10/18 04:02 98.2 F 88 20 BP BP Pulse Ox Pulse Ox Pulse Ox 07/10/18 11:38 139/95 H 92 L 07/10/18 09:02 92 L 90 L 07/10/18 08:30 07/10/18 07:11 131/72 94 L 07/10/18 04:02 175/106 H 99 Weight Weight 219 lb 9 oz I&O: 07/09/18 07/10/18 07/11/18 06:59 06:59 06:59 Intake Total 3115 1293 Output Total 2165 1000 Balance 950 293 Result Diagrams: 07/10/18 04:22 07/10/18 04:22 Phys Exam - Physical Examination HEENT: PERRLA Respiratory: no wheezing, no rales, no rhonchi, clear to auscultation bilateral Cardiovascular: RRR, no significant murmur, no rub Gastrointestinal: soft, non-tender, no distention, positive bowel sounds Musculoskeletal: no edema Dx/Plan (1) Unstable angina pectoris due to coronary arteriosclerosis Code(s): I25.110 - ATHSCL HEART DISEASE OF [place] COR ART W UNSTABLE ANG PCTRS Status: Acute (2) COPD (chronic obstructive pulmonary disease) Status: Chronic Qualifiers: COPD type: emphysema Emphysema type: unspecified Qualified Code(s): J43.9 - Emphysema, unspecified (3) HTN (hypertension) Code(s): I10 - ESSENTIAL (PRIMARY) HYPERTENSION Status: Chronic Qualifiers: Hypertension type: essential hypertension (4) CKD (chronic kidney disease) stage 3, GFR 30-59 ml/min Status: Chronic - Plan * Unstable angina- he is s/p STENT to the RCA * Chronic kidney disease- his renal function has remained stable * OK for discharge home .
--- NOTE | 2018-07-10 18:15 | EKG ---
Test Reason : CP Blood Pressure : / mmHG Vent. Rate : 072 BPM Atrial Rate : 072 BPM P-R Int : 232 ms QRS Dur : 172 ms QT Int : 420 ms P-R-T Axes : 000 -86 005 degrees QTc Int : 459 ms Atrial-paced rhythm with prolonged AV conduction Left axis deviation Right bundle branch block Abnormal ECG Confirmed by VERENA GAYLE, PAUL Pope ([id number]), editor farm journal MARIANELA BOOTH ([id number]) on 07/10/2018 6:15:01 PM Referred By: Confirmed By:PAUL ALBARADO MD
[2018-07-10] MEDS ORDERED: Atorvastatin Calcium 40 MG TAB PO SCH (21:00)
[2018-07-10] MEDS ORDERED: Metoprolol Tartrate 25 MG TAB PO SCH (21:00)
--- NOTE | 2018-07-10 22:48 | DIS ---
DATE OF ADMISSION: 07/07/2018 DATE OF DISCHARGE: 07/10/2018 DISCHARGE DISPOSITION: Home. PRIMARY DISCHARGE DIAGNOSES: 1. Unstable angina due to coronary artery disease. 2. Coronary artery disease, status post stent to the RCA. 3. Chronic obstructive pulmonary disease. 4. Hypertension. 5. Chronic kidney disease stage 3. DISCHARGE MEDICATIONS: Include Lopressor 25 mg twice daily, Lipitor 40 mg at bedtime, aspirin 81 mg daily, Dilantin 200 mg twice a day, Protonix 40 mg daily, nifedipine extended release 60 mg daily, Ke ppra 500 mg twice a day, Cymbalta 30 mg twice daily, Plavix 75 mg daily, bupropion SR 150 mg daily, P roAir inhaler 2 puffs q.6 hours as needed and Tylenol #3 as needed. CODE STATUS: FULL CODE. ALLERGIES: PENICILLINS and SULFA. PROCEDURES DONE DURING ADMISSION: Patient had a cardiac catheterization which demonstrated single ve ssel coronary artery disease and the patient had a successful stent placement to the right posterior descending artery. The patient also had an echocardiogram showing an EF was estimated at 50%-55%. T here was a hypokinetic motion of the apex and inferior wall of the left ventricle as well as some E t o A flow reversal noted suggestive of diastolic dysfunction. HOSPITAL COURSE: Mr. Hester is a pleasant 67-year-old gentleman who presented to the emergency room with complaints of chest pain. He was brought in observation and ruled out. He had a recent stress test in January of this month which was negative and for this reason, this was not repeated and instead Cardiology was consulted. The patient underwent cardiac catheterization and was found to have singl e vessel coronary artery disease to the right coronary artery, specifically the right posterior desce nding artery. He had a successful stent placed there and it was a drug-eluting stent. The patient t olerated the procedure well. He had an elevated creatinine on admission. He was hydrated prior to t he procedure and his creatinine has remained stable and in fact improved and he will be discharged ho me today with close outpatient followup.
--- NOTE | 2018-07-11 21:13 | EKG ---
Test Reason : POST STENT -RCA Blood Pressure : / mmHG Vent. Rate : 063 BPM Atrial Rate : 063 BPM P-R Int : 214 ms QRS Dur : 166 ms QT Int : 444 ms P-R-T Axes : 082 269 -24 degrees QTc Int : 454 ms Electronic atrial pacemaker Right bundle branch block Abnormal ECG When compared with ECG of 07-JUL-2018 14:48, (Unconfirmed) No significant change was found Confirmed by Maricruz RABAGO ([id number]) on 07/11/2018 9:12:43 PM Referred By: TOYIN Confirmed By:Maricruz RABAGO
== END 2018-07-10 15:10 | disposition home or self-care (01) ==
LOC: ERS 14:35 → 2SW 16:34
PROVIDERS: ADMIT Internal Medicine; ATTEND Internal Medicine
PROC: 027034Z Dilation of Coronary Artery, One Artery with Drug-eluting Intraluminal Device, Percutaneous Approach (ICD-10-PCS; principal; 2018-07-09)
PROC: 4A023N7 Measurement of Cardiac Sampling and Pressure, Left Heart, Percutaneous Approach (ICD-10-PCS; 2018-07-09)
PROC: B2111ZZ Fluoroscopy of Multiple Coronary Arteries using Low Osmolar Contrast (ICD-10-PCS; 2018-07-09)
DX: I24.9 Acute ischemic heart disease, unspecified (principal); I25.110 Atherosclerotic heart disease of native coronary artery with unstable angina pectoris; I12.9 Hypertensive chronic kidney disease with stage 1 through stage 4 chronic kidney disease, or unspecified chronic kidney disease; N18.4 Chronic kidney disease, stage 4 (severe); E78.00 Pure hypercholesterolemia, unspecified; E78.5 Hyperlipidemia, unspecified; F17.210 Nicotine dependence, cigarettes, uncomplicated; J44.9 Chronic obstructive pulmonary disease, unspecified; G40.909 Epilepsy, unspecified, not intractable, without status epilepticus; G47.33 Obstructive sleep apnea (adult) (pediatric); K21.9 Gastro-esophageal reflux disease without esophagitis; F41.8 Other specified anxiety disorders; G62.9 Polyneuropathy, unspecified; D75.89 Other specified diseases of blood and blood-forming organs; Z86.73 Personal history of transient ischemic attack (TIA), and cerebral infarction without residual deficits; Z85.528 Personal history of other malignant neoplasm of kidney; Z88.0 Allergy status to penicillin; Z88.2 Allergy status to sulfonamides; Z79.02 Long term (current) use of antithrombotics/antiplatelets; Z79.899 Other long term (current) drug therapy; Z90.5 Acquired absence of kidney; Z95.0 Presence of cardiac pacemaker; Z91.19 Patient's noncompliance with other medical treatment and regimen
CPT/HCPCS: 71045; 80048 ×2; 80053 ×2; 80061; 82550; 82553; 83735; 83880; 84484 ×2; 85025 ×2; 85347; 93005 ×3; 93306; 93454; 93798; 94640 ×3; 94760; 96361 ×4; 96374; 99285; 99406; C1725; C1769 ×2; C1874; C1887; C9600; G0378 ×3; 36415; 92928; 93010; 99152; 99153; J0360; J0583; J1644; J2001; J2250; J2270; J3010; J7620; J7644

== ENCOUNTER 2018-10-21 04:18 | Emergency (ER) | payer MEDICARE ==
--- NOTE | 2018-10-21 08:35 | RAD ---
AP CHEST: History: 67-year-old with shortness of breath. Date: 10-21-18 Comparison: 07-07-18 FINDINGS: Two AP views of the chest were obtained and demonstrate a dual-lead intracardiac pacing device. Cardi omegaly is seen. Pulmonary vascular congestion is seen. No evidence of active intrathoracic disease s een. No evidence of effusions, pneumonia, or pneumothorax is seen. IMPRESSION: Unremarkable AP chest. POS: NAYELI
--- NOTE | 2018-10-23 13:33 | EKG ---
Test Reason : Blood Pressure : / mmHG Vent. Rate : 063 BPM Atrial Rate : 064 BPM P-R Int : 000 ms QRS Dur : 172 ms QT Int : 460 ms P-R-T Axes : -85 263 -16 degrees QTc Int : 470 ms Atrial-paced rhythm with prolonged AV conduction Right bundle branch block Abnormal ECG Confirmed by VERENA GAYLE, PAUL Pope ([id number]), news assignment editor SHER COYNE ([id number]) on 10/23/2018 1:32:43 PM Referred By: Confirmed By:PAUL ALBARADO MD
== END 2018-10-21 05:04 | disposition home or self-care (01) ==
LOC: ERS 04:18
DX: J44.1 Chronic obstructive pulmonary disease with (acute) exacerbation (principal); F41.9 Anxiety disorder, unspecified; F17.210 Nicotine dependence, cigarettes, uncomplicated; I12.9 Hypertensive chronic kidney disease with stage 1 through stage 4 chronic kidney disease, or unspecified chronic kidney disease; N18.3 Chronic kidney disease, stage 3 (moderate); Z79.82 Long term (current) use of aspirin; Z79.899 Other long term (current) drug therapy
CPT/HCPCS: 71045; 93005; 94640; J7620

== ENCOUNTER 2019-10-11 21:57 | Emergency (ER) | payer MEDICARE ==
[2019-10-11 22:43] LABS: #Eosinphils 0.1 thou/uL (0.0-0.7); #Lymphocytes 0.7 thou/uL (1.20-3.40); #Monocytes 0.7 thou/uL (0.11-0.59); #Neutrophils 5.4 thou/uL (1.40-6.50); %Basophils 0.5 % (0.0-1.0); %Eosinophils 1.5 % (0.0-10.0); %Lymphocytes 9.8 % (21.0-51.0); %Monocytes 10.6 % (0.0-10.0); %Neutrophils 77.7 % (42.0-75.0); Hemoglobin 12.2 g/dL (14.0-18.0); Mean Corpuscular HGB CONC 32.8 g/dL (32.0-36.0); Mean Corpuscular Volume 97.5 fL (78.0-98.0); Mean Platelet Volume 8.8 fL (7.4-10.4); Platelet Count 142 thou/uL (130-400); RBC Distribution Width 12.4 % (11.5-14.5); Red Blood Cell (RBC) Count 3.81 mill/uL (4.70-6.10); White Blood Cell (WBC) Count 6.9 thou/uL (4.8-10.8)
--- NOTE | 2019-10-11 23:01 | RAD ---
ONE VIEW CHEST: 10/11/19 HISTORY: Shortness of breath and chest pain. COMPARISON: 10/21/18. FINDINGS: Dual lead left subclavian cardiac pacemaking device is again noted in place. Cardiac silhouette is ma gnified by projection. The pulmonary vasculature is within normal limits. There is a hazy density at the medial right lung base better seen on one of the provided AP projections. Similar finding was see n on prior chest x-rays and this probably represents mild focal eventration of the right hemidiaphrag m. Similar findings also seen at the medial left lung base. No consolidation or pleural fluid is iden tified. There is no interval change compared to prior studies. IMPRESSION: Stable chest without evidence of an acute cardiopulmonary process. POS: NAYELI
[2019-10-11 23:05] LABS: ALT (SGPT) 11 U/L (8-55); AST (SGOT) 15 U/L (5-34); Albumin 3.9 g/dL (3.4-4.8); Alkaline Phosphatase 139 U/L (40-110); Anion Gap 12 mmol/L (10-20); BUN (Urea Nitrogen) 33 mg/dL (8.4-25.7); Bilirubin, Total 0.3 mg/dL (0.2-1.2); Calc. Creatinine Clearance 0 mL/min (70-130); Calcium 8.1 mg/dL (7.8-10.44); Carbon Dioxide 25 mmol/L (23-31); Chloride 107 mmol/L (98-107); Estimated GFR-MDRD 21; Globulin 2.8 g/dL (2.4-3.5); Glucose 117 mg/dL (80-115); Lipase 28 U/L (8-78); Potassium 4.8 mmol/L (3.5-5.1); Protein, Total 6.7 g/dL (5.8-8.1); Sodium 139 mmol/L (136-145)
[2019-10-11 23:20] LABS: Bacteria/HPF None Seen HPF (None Seen); Bilirubin Negative (Negative); Blood, Urine Trace (Negative); Clarity Clear (Clear); Glucose, Urine (Dipstick) Normal (Negative); Leukocyte Negative Leu/uL (Negative); Nitrite Negative (Negative); Protein, Urine (Dipstick) 50 mg/dL (Neg-Trace); RBC/HPF None Seen HPF (0-3); Squamous Epithelial 0-3 HPF (0-3); Urobilinogen Normal mg/dL (Less than 2); WBC/HPF 0-3 HPF (0-3)
[2019-10-12] MEDS ORDERED: Acetaminophen 500 MG TAB ONE (00:06)
[2019-10-12] MEDS ORDERED: predniSONE 20 MG TAB ONE (00:19)
== END 2019-10-12 07:47 | disposition home or self-care (01) ==
LOC: ERS 21:57
DX: J44.1 Chronic obstructive pulmonary disease with (acute) exacerbation (principal); R50.9 Fever, unspecified; I12.9 Hypertensive chronic kidney disease with stage 1 through stage 4 chronic kidney disease, or unspecified chronic kidney disease; N18.4 Chronic kidney disease, stage 4 (severe); F41.9 Anxiety disorder, unspecified; F17.210 Nicotine dependence, cigarettes, uncomplicated; Z79.82 Long term (current) use of aspirin; Z79.899 Other long term (current) drug therapy; Z79.01 Long term (current) use of anticoagulants; Z86.73 Personal history of transient ischemic attack (TIA), and cerebral infarction without residual deficits
CPT/HCPCS: 36415; 71045; 80053; 81003; 81015; 83690; 83880; 84484; 85025; 87804; 93005; 94640; J7512; J7620

== ENCOUNTER 2019-12-05 06:22 | Outpatient (CLI) | payer MEDICARE ==
[2019-12-05 12:51] LABS: #Basophils 0.1 thou/uL (0.0-0.2); #Eosinphils 0.4 thou/uL (0.0-0.7); #Lymphocytes 1.7 thou/uL (1.20-3.40); #Monocytes 0.5 thou/uL (0.11-0.59); #Neutrophils 3.7 thou/uL (1.40-6.50); %Basophils 1.1 % (0.0-1.0); %Eosinophils 6.3 % (0.0-10.0); %Monocytes 8.2 % (0.0-10.0); %Neutrophils 57.5 % (42.0-75.0); Hemoglobin 12.3 g/dL (14.0-18.0); Mean Corpuscular HGB CONC 33.3 g/dL (32.0-36.0); Mean Corpuscular Hemoglobin 32.8 pg (27.0-31.0); Mean Corpuscular Volume 98.8 fL (78.0-98.0); Mean Platelet Volume 9.2 fL (7.4-10.4); Platelet Count 227 thou/uL (130-400); RBC Distribution Width 12.9 % (11.5-14.5); Red Blood Cell (RBC) Count 3.76 mill/uL (4.70-6.10); White Blood Cell (WBC) Count 6.4 thou/uL (4.8-10.8)
[2019-12-05 13:14] LABS: ALT (SGPT) 10 U/L (8-55); AST (SGOT) 15 U/L (5-34); Albumin 3.8 g/dL (3.4-4.8); Alkaline Phosphatase 123 U/L (40-110); Anion Gap 12 mmol/L (10-20); BUN (Urea Nitrogen) 25 mg/dL (8.4-25.7); Bilirubin, Total 0.3 mg/dL (0.2-1.2); Calc. Creatinine Clearance 0 mL/min (70-130); Calcium 8.7 mg/dL (7.8-10.44); Carbon Dioxide 26 mmol/L (23-31); Chloride 108 mmol/L (98-107); Estimated GFR-MDRD 26; Globulin 3.2 g/dL (2.4-3.5); Glucose 73 mg/dL (83-110); Potassium 3.9 mmol/L (3.5-5.1); Sodium 142 mmol/L (136-145)
== END 2019-12-05 06:23 | disposition home or self-care (01) ==
LOC: LABBT 06:22
PROVIDERS: ATTEND Internal Medicine Cardiovascular Disease
DX: Z01.812 Encounter for preprocedural laboratory examination (principal)
CPT/HCPCS: 80053; 85025

== ENCOUNTER 2019-12-05 10:15 | Inpatient (IN) | payer MEDICARE ==
[2019-12-07 09:21] VITALS: BMI 34.0
[2019-12-07] MEDS ORDERED: HOLD HYPOGLYCEMIC MEDS AM OF CATH FS SCH (10:15)
[2019-12-07] MEDS: Sodium Chloride 0.9% 1,000 ML IV SCH ×2 (10:44→21:54)
[2019-12-07 10:48] LABS: #Basophils 0.1 thou/uL (0.0-0.2); #Eosinphils 0.3 thou/uL (0.0-0.7); #Lymphocytes 1.6 thou/uL (1.20-3.40); #Monocytes 0.5 thou/uL (0.11-0.59); #Neutrophils 3.6 thou/uL (1.40-6.50); %Basophils 1.4 % (0.0-1.0); %Eosinophils 5.5 % (0.0-10.0); %Lymphocytes 25.6 % (21.0-51.0); %Monocytes 8.6 % (0.0-10.0); Hemoglobin 11.9 g/dL (14.0-18.0); Mean Corpuscular HGB CONC 32.8 g/dL (32.0-36.0); Mean Corpuscular Hemoglobin 32.5 pg (27.0-31.0); Mean Corpuscular Volume 98.9 fL (78.0-98.0); Mean Platelet Volume 8.7 fL (7.4-10.4); Platelet Count 180 thou/uL (130-400); RBC Distribution Width 12.9 % (11.5-14.5); Red Blood Cell (RBC) Count 3.66 mill/uL (4.70-6.10); White Blood Cell (WBC) Count 6.2 thou/uL (4.8-10.8)
[2019-12-07 11:04] LABS: ALT (SGPT) 9 U/L (8-55); AST (SGOT) 17 U/L (5-34); Albumin 3.4 g/dL (3.4-4.8); Alkaline Phosphatase 117 U/L (40-110); Anion Gap 12 mmol/L (10-20); BUN (Urea Nitrogen) 26 mg/dL (8.4-25.7); Bilirubin, Total 0.3 mg/dL (0.2-1.2); Calc. Creatinine Clearance 46 mL/min (70-130); Calcium 8.4 mg/dL (7.8-10.44); Carbon Dioxide 24 mmol/L (23-31); Chloride 108 mmol/L (98-107); Estimated GFR-MDRD 27; Globulin 2.8 g/dL (2.4-3.5); Glucose 89 mg/dL (83-110); Potassium 4.3 mmol/L (3.5-5.1); Protein, Total 6.2 g/dL (5.8-8.1); Sodium 140 mmol/L (136-145)
[2019-12-07] MEDS ORDERED: Albuterol Sulfate 2.5 mg/3 ml Neb NEB PRN (13:00)
[2019-12-07] MEDS ORDERED: Communication Order-Pharmacy FS SCH (17:00)
[2019-12-07] MEDS ORDERED: Acetaminophen/Codeine 30-300mg Tablet PO PRN (21:27)
[2019-12-07] MEDS ORDERED: PROVENTIL INHALER 6.7 G (200 INHALATIONS) INH PRN (21:28)
[2019-12-07] MEDS ORDERED: Metoprolol Tartrate 25 MG TAB PO SCH (21:30)
[2019-12-07] MEDS ORDERED: levETIRAcetam 500 MG TAB PO SCH (21:30)
[2019-12-07] MEDS ORDERED: Atorvastatin Calcium 40 MG TAB PO SCH (21:30)
[2019-12-07] MEDS ORDERED: DULoxetine 30 MG CAP PO SCH (21:30)
[2019-12-07] MEDS ORDERED: DC ENOXAPARIN NIGHT BEFORE CATH FS SCH (22:00)
[2019-12-08 04:36] LABS: Anion Gap 13 mmol/L (10-20); BUN (Urea Nitrogen) 27 mg/dL (8.4-25.7); Calc. Creatinine Clearance 49 mL/min (70-130); Calcium 8.2 mg/dL (7.8-10.44); Carbon Dioxide 21 mmol/L (23-31); Chloride 111 mmol/L (98-107); Estimated GFR-MDRD 29; Glucose 96 mg/dL (83-110); Potassium 4.6 mmol/L (3.5-5.1); Sodium 140 mmol/L (136-145)
[2019-12-08] MEDS: levETIRAcetam 500 MG TAB PO SCH ×2 (05:36→22:03)
[2019-12-08] MEDS: NIFEdipine XL 60 MG TAB PO SCH (05:37)
[2019-12-08] MEDS: Calcitriol 0.25 MCG CAP PO SCH (05:37)
[2019-12-08] MEDS: DULoxetine 30 MG CAP PO SCH ×2 (05:38→22:02)
[2019-12-08] MEDS: Aspirin 81 mg Enteric Coated Tablet PO SCH (05:38)
[2019-12-08] MEDS ORDERED: Heparin 10,000 UNITS/1 ML VIAL ONE (06:55)
[2019-12-08] MEDS ORDERED: Midazolam HCl 2 mg/2 ml Vial ONE (07:26)
[2019-12-08] MEDS ORDERED: Fentanyl 100 MCG/2 ML VIAL ONE (07:26)
[2019-12-08] MEDS ORDERED: Protamine Sulfate 50 MG/5 ML VIAL ONE (07:47)
[2019-12-08] MEDS ORDERED: Sodium Chloride 0.9% 200 ML IV PRN (08:07)
[2019-12-08] MEDS ORDERED: Acetaminophen/Codeine 30-300mg Tablet PO PRN ×2 (08:07)
[2019-12-08] MEDS ORDERED: Sodium Chloride 0.9% 1,000 ML IV SCH (08:15)
[2019-12-08] MEDS ORDERED: Metoprolol Tartrate 25 MG TAB PO SCH (09:00)
[2019-12-08] MEDS ORDERED: Iopamidol 370 76% 100 ML VIAL ONE (09:24)
[2019-12-08] MEDS ORDERED: Iopamidol 370 76% 50 ML VIAL FS ONE (09:24)
[2019-12-08] MEDS ORDERED: Metoprolol Tartrate 5 MG/5 ML VIAL IVP SCH ×2 (10:00→14:00)
[2019-12-08] MEDS: Metoprolol Tartrate 50 MG TAB PO SCH ×2 (10:18→22:03)
[2019-12-08] MEDS: Nitroglycerin 0.4 MG TAB (25 Tab Bottle) SL PRN ×3 (10:40→14:50)
[2019-12-08] MEDS: Bupropion 150 MG SR TAB PO SCH (14:13)
[2019-12-08] MEDS: Clopidogrel Bisulfate 75 MG TAB PO SCH (14:14)
[2019-12-08] MEDS: Sodium Chloride 0.9% 1,000 ML IV SCH (14:21)
[2019-12-08] MEDS ORDERED: Atorvastatin Calcium 40 MG TAB PO SCH (21:00)
[2019-12-09] MEDS: Sodium Chloride 0.9% 1,000 ML IV SCH (00:04)
[2019-12-09] MEDS: Metoprolol Tartrate 5 MG/5 ML VIAL IVP PRN ×2 (00:06→06:16)
[2019-12-09 04:47] LABS: Anion Gap 13 mmol/L (10-20); BUN (Urea Nitrogen) 27 mg/dL (8.4-25.7); Calc. Creatinine Clearance 51 mL/min (70-130); Calcium 8.6 mg/dL (7.8-10.44); Carbon Dioxide 19 mmol/L (23-31); Chloride 111 mmol/L (98-107); Estimated GFR-MDRD 30; Glucose 93 mg/dL (83-110); Potassium 4.7 mmol/L (3.5-5.1); Sodium 138 mmol/L (136-145)
[2019-12-09 08:26] VITALS: BP 173/100; TEMP 98.9
[2019-12-09] MEDS: Calcitriol 0.25 MCG CAP PO SCH (09:27)
[2019-12-09] MEDS: Bupropion 150 MG SR TAB PO SCH (09:27)
[2019-12-09] MEDS: Aspirin 81 mg Enteric Coated Tablet PO SCH (09:27)
[2019-12-09] MEDS: DULoxetine 30 MG CAP PO SCH (09:27)
[2019-12-09] MEDS: NIFEdipine XL 60 MG TAB PO SCH (09:27)
[2019-12-09] MEDS: Clopidogrel Bisulfate 75 MG TAB PO SCH (09:27)
[2019-12-09] MEDS: levETIRAcetam 500 MG TAB PO SCH (09:30)
[2019-12-09] MEDS: Metoprolol Tartrate 50 MG TAB PO SCH (09:30)
--- NOTE | 2019-12-09 12:21 | DIS ---
DATE OF ADMISSION: 12/07/2019 DATE OF DISCHARGE: 12/09/2019 DISCHARGE DIAGNOSES: 1. One vessel coronary artery disease (RCA) with continued good stent result in the right posterior descending. 2. Status post dual chamber pacemaker placement. 3. History of noncompliance in the past. 4. Hypertension, poorly controlled with metoprolol dose to increase. 5. Hypercholesterolemia, under good control with LDL of 55. 6. History of depression. 7. Anxiety. 8. History of renal cell carcinoma, status post right nephrectomy. 9. Chronic kidney disease stage 4. 10. History of cerebrovascular accident-left occipital in the past. 11. Obstructive sleep apnea. 12. History of seizure disorder. 13. Chronic obstructive pulmonary disease. 14. Former smoker. 15. Gastroesophageal reflux disease. DISCHARGE DISPOSITION: The patient will be seen in 4 months with pacer check, comprehensive metabolic panel and fasting lipid profile. DISCHARGE MEDICATIONS: 1. Albuterol nebs q.6 hours p.r.n. 2. Acetaminophen with codeine p.r.n. 3. ProAir two puffs q.6 hours p.r.n. 4. Aspirin 81 daily. 5. Atorvastatin 40 mg at bedtime. 6. Wellbutrin 150 mg daily. 7. Rocaltrol 0.25 daily. 8. Plavix 75 mg daily. 9. Cymbalta 30 mg b.i.d. 10. DuoNeb p.r.n. 11. Levetiracetam 500 mg b.i.d. 12. Metoprolol 50 b.i.d. 13. Nifedipine 60 mg daily. 14. Nitroglycerin p.r.n. 15. Protonix 40 mg daily. 16. Dilantin 100 mg capsule-two capsules b.i.d. HOSPITAL COURSE: Mr. Hester was complaining of sharp chest discomfort and had abnormal PET scan. He was admitted the day prior to catheterization for intravenous hydration. His initial creatinine was 2.36 and the day of discharge was 2.16. He was hydrated the night after catheterization also. At catheterization, left ventriculogram was not performed due to his renal insufficiency. He had a 20% left main, normal LAD, 20% mid circumflex. There was a 50% proximal right coronary artery stenosis and a 50% right posterior descending stenosis. The right posterior descending graft continued to show good results. He was asymptomatic during his admission and ambulated in the nix the day of discharge. Job ID: [id number]
== END 2019-12-09 11:30 | disposition home or self-care (01) | DRG 287 ==
LOC: 2NO 12-07 08:42 → EDSTATUS 12-08 10:15
PROVIDERS: ADMIT Internal Medicine Cardiovascular Disease; ATTEND Internal Medicine Cardiovascular Disease
PROC: 4A023N7 Measurement of Cardiac Sampling and Pressure, Left Heart, Percutaneous Approach (ICD-10-PCS; principal; 2019-12-08)
PROC: B2111ZZ Fluoroscopy of Multiple Coronary Arteries using Low Osmolar Contrast (ICD-10-PCS; 2019-12-08)
DX: I25.10 Atherosclerotic heart disease of native coronary artery without angina pectoris (principal); I12.9 Hypertensive chronic kidney disease with stage 1 through stage 4 chronic kidney disease, or unspecified chronic kidney disease; E78.00 Pure hypercholesterolemia, unspecified; F32.9 Major depressive disorder, single episode, unspecified; F41.9 Anxiety disorder, unspecified; G47.33 Obstructive sleep apnea (adult) (pediatric); G40.909 Epilepsy, unspecified, not intractable, without status epilepticus; J44.9 Chronic obstructive pulmonary disease, unspecified; K21.9 Gastro-esophageal reflux disease without esophagitis; Z88.0 Allergy status to penicillin; Z88.2 Allergy status to sulfonamides; Z95.0 Presence of cardiac pacemaker; Z85.528 Personal history of other malignant neoplasm of kidney; Z90.5 Acquired absence of kidney; Z86.73 Personal history of transient ischemic attack (TIA), and cerebral infarction without residual deficits; Z87.891 Personal history of nicotine dependence
CPT/HCPCS: 36415; 36416; 80048; 80053; 85025; 85347; 93458; 94640; 94760; 99152; C1769; J1644; J2250; J2720; J3010; J7611; J7620; Q9967

== ENCOUNTER 2020-07-31 09:34 | Outpatient (CLI) | payer MEDICARE ==
--- NOTE | 2020-07-31 10:45 | RAD ---
CHEST 2 VIEWS: Date: 07/31/2020 INDICATION: 69-year-old male with shortness of breath. COMPARISON: Single view of chest dated 10/11/2019. FINDINGS: The dual lead pacemaker is unchanged. The leads are intact. Heart size is normal. The lungs are hyper expanded, but clear. No pleural effusion or pneumothorax is evident. There is spondylosis of the thor acic spine. IMPRESSION: No acute cardiopulmonary abnormality. POS: BH
== END 2020-07-31 09:35 | disposition home or self-care (01) ==
LOC: RAD-FRANK 09:34
PROVIDERS: ATTEND Nurse Practitioner Family
DX: R06.02 Shortness of breath (principal)
CPT/HCPCS: 71046

== ENCOUNTER 2020-08-26 22:14 | Inpatient (IN) | payer MEDICARE ==
[~2020-08-26 22:14] MED LIST: Iopamidol-370 76% 500 ML 1 ML ONE
--- NOTE | 2020-08-26 22:25 | CT ---
Head CT without contrast 08/26/2020: COMPARISON: 04/28/2018 HISTORY: Stroke protocol, level 1 stroke, right-sided weakness TECHNIQUE: Axial CT imaging at 5 mm intervals from vertex through skull base without contrast FINDINGS: There is encephalomalacia within the occipital lobe on the left consistent with prior left [employer]AMP [employer] infarction. Small foci of hypodensity again noted within the right cerebellar hemisphere, evidence of prior ischemia. No intracranial hemorrhage, midline shift, or mass effect. There is evide nce of prior paranasal sinus surgery. No acute osseous abnormality. IMPRESSION: No intracranial hemorrhage. Dr. Wade made aware 10:23 PM 08/26/2020
--- NOTE | 2020-08-26 22:43 | CT ---
CT angiogram head and neck: 08/24/2020 COMPARISON: None HISTORY: Right-sided weakness, acute stroke protocol TECHNIQUE: Axial CT imaging at 2.5 mm intervals from the vertex through the lung apices with IV contr ast using CT angiogram protocol with coronal and sagittal 3-D reformatted imaging FINDINGS: The imaged lung apices are unremarkable. Partially visualized transvenous pacing device pre sent. There is mucosal thickening involving the alveolar recess of the maxillary sinus and sphenoid sinus on the right. Evidence of prior paranasal sinus surgery. The retroantral fat and the parapharyngeal fat appears clear bilaterally. The parotid glands, submand ibular glands, tonsillar pillars, epiglottis and preepiglottic fat, hyoid bone, thyroid cartilage, cricoid cartilage, level of the glottis, and thyroid gland appear grossly unremarkable. No lymphadeno breonna is seen in the neck. No hemodynamically significant stenosis seen at the origin of the great vessels. There is marked tortuosity of the internal carotid arteries bilaterally. The common carotid arteries are tortuous bilaterally, left greater than right. On the basis of NASCET criteria there is no hemodynamically significant stenosis seen involving the i nternal carotid artery or the common carotid artery on either side. There is atherosclerotic calcification of the distal CCA and the proximal ICA bilaterally. Bilateral vertebral arteries are patent with distal atherosclerotic calcification. The basilar artery is tortuous. The basilar artery is patent. There is no saccular aneurysm, high-gra de stenosis, or vascular occlusion involving the basilar artery and its branches aside from distal left LIMOUSINE AND HEARSE UPHOLSTERER irregularity associated with prior left CCA infarction. There is atherosclerotic calcification of the cavernous carotid arteries. The M1 segment is patent bi laterally. The A1 segment is patent bilaterally. The distal JAYCEE branches appear unremarkable. The ICA bifurcation and the MCA bifurcation appears unremarkable bilaterally. The distal MCA branches appear intact bilaterally. No saccular aneurysm, high-grade stenosis, or vascular occlusion is seen involving the anterior circulation on either side. Review of the osseous structures demonstrates no acute findings. There is multilevel mid cervical spi ne disc space narrowing with degenerative endplate change as well as facet and uncovertebral osteophyte formation. IMPRESSION: No acute arterial abnormality. Numerous incidental findings as detailed above. Results called to Dr. Wade at 10:35 PM 08/26/2020
[2020-08-26 22:44] LABS: #Basophils 0.1 thou/uL (0.0-0.2); #Eosinphils 0.3 thou/uL (0.0-0.7); #Lymphocytes 2.2 thou/uL (1.20-3.40); #Monocytes 0.9 thou/uL (0.11-0.59); #Neutrophils 6.6 thou/uL (1.40-6.50); %Eosinophils 2.7 % (0.0-10.0); %Lymphocytes 22.3 % (21.0-51.0); %Monocytes 8.9 % (0.0-10.0); %Neutrophils 65.2 % (42.0-75.0); Hemoglobin 12.2 g/dL (14.0-18.0); Mean Corpuscular HGB CONC 32.3 g/dL (32.0-36.0); Mean Corpuscular Hemoglobin 32.9 pg (27.0-31.0); Platelet Count 167 thou/uL (130-400); RBC Distribution Width 12.5 % (11.5-14.5); Red Blood Cell (RBC) Count 3.71 mill/uL (4.70-6.10); White Blood Cell (WBC) Count 10.1 thou/uL (4.8-10.8)
[2020-08-26 22:50] LABS: Prothrombin Time 13.3 sec (12.0-14.7)
[2020-08-26 22:51] LABS: PTT 17.5 sec (22.9-36.1)
--- NOTE | 2020-08-26 22:58 | RAD ---
Portable frontal chest radiograph: 08/26/2020 COMPARISON: 10/11/2019 HISTORY: Acute stroke protocol FINDINGS: The lungs are hyperinflated with increased linear interstitial density in the upper lobe re gion suggesting stable emphysematous change. Stable dual lead transvenous pacing device. No pneumothorax, pleural fluid, lobar consolidation, or alveolar edema. IMPRESSION: Chronic findings as detailed above.
[2020-08-26 23:02] LABS: ALT (SGPT) 11 U/L (8-55); AST (SGOT) 16 U/L (5-34); Albumin 3.6 g/dL (3.4-4.8); Alkaline Phosphatase 109 U/L (40-110); Anion Gap 20 mmol/L (10-20); BUN (Urea Nitrogen) 27 mg/dL (8.4-25.7); Bilirubin, Total 0.3 mg/dL (0.2-1.2); Calc. Creatinine Clearance 0 mL/min (70-130); Calcium 8.4 mg/dL (7.8-10.44); Carbon Dioxide 16 mmol/L (23-31); Chloride 106 mmol/L (98-107); Estimated GFR-MDRD 24; Globulin 3.1 g/dL (2.4-3.5); Glucose 162 mg/dL (83-110); Potassium 4.9 mmol/L (3.5-5.1); Protein, Total 6.7 g/dL (5.8-8.1); Sodium 137 mmol/L (136-145)
[2020-08-26 23:03] LABS: Acetaminophen Less than 6.0 mcg/mL (10.0-30.0); Alcohol Less than 10 mg/dL (Less than 10); CK (CPK) 43 U/L (30-200); Magnesium 1.9 mg/dL (1.6-2.6); Salicylate Less than 8.0 mg/dL (15.0-30.0)
[2020-08-26 23:19] LABS: Actual Bicarbonate (HCO3v) 25 mEq/L (22-28); Analyzer IN Cardio ER; Base Excess -2.4 mEq/L (-2.0 to +3.0); Chloride (VBG) 104 mmol/L (98-106); Hemoglobin (Hb) 12.1 g/dL (12.6-17.4); Potassium (VBG) 4.77 mmol/L (3.70-5.30); Sodium 137.2 mmol/L (133-146); pH (venous) 7.27 (7.32-7.43)
[2020-08-26] MEDS ORDERED: Aspirin 325 MG TAB ONE (23:45)
[2020-08-27] MEDS ORDERED: levETIRAcetam in NS 100 ML ONE (00:11)
[2020-08-27] MEDS ORDERED: Ondansetron PF 4 MG/2 ML Vial ONE (00:13)
[2020-08-27] MEDS ORDERED: hydrALAZINE 20 MG/ML VIAL SLOW IVP PRN (01:08)
[2020-08-27] MEDS ORDERED: Ondansetron ODT 4 MG TAB PO PRN (01:10)
[2020-08-27] MEDS ORDERED: Acetaminophen 325 MG TAB PO PRN (01:10)
[2020-08-27] MEDS ORDERED: Calcium Carbonate 500 MG ChewTAB PO PRN (01:10)
[2020-08-27] MEDS ORDERED: Acetaminophen 650 MG Suppository PR PRN (01:10)
[2020-08-27] MEDS ORDERED: Ondansetron PF 4 MG/2 ML Vial IVP PRN (01:10)
--- NOTE | 2020-08-27 01:13 | PDOC.HHP ---
Hospitalist HPI - History of Present Illness tia / seizures History of Present Illness: Case of an 69y/o male with pmhx of cad, dana, copd, hx of seizures, hx of cva, htn, hx of renal cell carcinoma s/p nephrectomy and ckd stage 4 who comes to hospital after an episode of altered mental state. patient was last seen normal at 1930, he was at home on his computer and started having some altered mental state with confusion after which he seemed to had a seizure episode which was followed by right sided weakness. this was reported by his , since patient has no recollection of what happened. patient denies any fever chills dysuria or chest pain does complain of some headache and nausea, head ct was negative. upon my evaluation there was no noticeable R sided weakness Hospitalist ROS - Review of Systems All other systems reviewed; all pertinent +/- noted in HPI/Subj Hospitalist History - Past Surgical History Past Surgical History: reports: Appendectomy, Cholecystectomy Other Surgical History: R nephrectomy ppm placement - Social History Smoking Status: Current every day smoker Alcohol: reports: Occassional Drugs: reports: none - Exam General Appearance: NAD, awake alert Eye: PERRL, anicteric sclera ENT: normocephalic atraumatic, no oropharyngeal lesions, moist mucosa Neck: supple, symmetric, no JVD, no thyromegaly, no lymphadenopathy Heart: RRR, no murmur, no gallops, no rubs, normal peripheral pulses Respiratory: CTAB, no wheezes, no rales, no ronchi, normal chest expansion Gastrointestinal: soft, non-tender, non-distended, normal bowel sounds, no palpable masses Extremities: no cyanosis, no clubbing, no edema Skin: normal turgor, no lesions, no rashes Neurological: cranial nerve grossly intact, normal sensation to touch, no weakness, no focal deficits, no new deficit Musculoskeletal: normal tone, normal strength, no muscle wasting Psychiatric: normal affect, normal behavior, A&O x 3, oriented to person Hospitalist Results - Labs Result Diagrams: 08/26/20 22:27 08/26/20 22:35 Lab results: WBC 10.1 thou/uL (4.8-10.8) 08/26/20 22: Hgb 12.2 g/dL (14.0-18.0) L 08/26/20 22: Hct 37.8 % (42.0-52.0) L 08/26/20 22: MCV 102.0 fL (78.0-98.0) H 08/26/20 22: Plt Count 167 thou/uL (130-400) 08/26/20 22: Neutrophils % 65.2 % (42.0-75.0) 08/26/20 22: VBG pH 7.27 (7.32-7.43) L 08/26/20 23:11 VBG pCO2 55.4 mmHg (42.0-51.0) H 08/26/20 23:11 VBG pO2 70.6 mmHg (35.0-45.0) H 08/26/20 23:11 Sodium 137 mmol/L (136-145) 08/26/20 22: Potassium 4.9 mmol/L (3.5-5.1) 08/26/20 22: Chloride 106 mmol/L (98-107) 08/26/20 22:35 Carbon Dioxide 16 mmol/L (23-31) L 08/26/20 22:35 BUN 27 mg/dL (8.4-25.7) H 08/26/20 22:35 Creatinine 2.65 mg/dL (0.7-1.3) H 08/26/20 22:35 Glucose 162 mg/dL (83-110) H 08/26/20 22:35 Lactic Acid 5.1 mmol/L (0.5-2.2) H* 08/26/20: Calcium 8.4 mg/dL (7.8-10.44) 08/26/20 22: Total Bilirubin 0.3 mg/dL (0.2-1.2) 08/26/20 22:35 AST 16 U/L (5-34) 08/26/20 22: ALT 11 U/L (8-55) 08/26/20 22: Alkaline Phosphatase 109 U/L (40-110) 08/26/20 22: Creatine Kinase 43 U/L (30-200) 08/26/20 22: Troponin I Less than 0.010 ng/mL (< 0.028) 08/26/20: Serum Total Protein 6.7 g/dL (5.8-8.1) 08/26/20 22:35 Albumin 3.6 g/dL (3.4-4.8) 08/26/20 22:35 Hospitalist H&P A/P - Problem (1) TIA (transient ischemic attack) Code(s): G45.9 - TRANSIENT CEREBRAL ISCHEMIC ATTACK, UNSPECIFIED Status: Acute (2) CAD (coronary artery disease) Code(s): I25.10 - ATHSCL HEART DISEASE OF [place] CORONARY ARTERY W/O ANG PCTRS Status: Acute (3) H/O renal cell cancer Code(s): Z85.528 - PERSONAL HISTORY OF OTHER MALIGNANT NEOPLASM OF KIDNEY Status: Acute (4) COPD (chronic obstructive pulmonary disease) Status: Chronic Qualifiers: COPD type: emphysema Emphysema type: unspecified Qualified Code(s): J43.9 - Emphysema, unspecified (5) HTN (hypertension) Code(s): I10 - ESSENTIAL (PRIMARY) HYPERTENSION Status: Chronic Qualifiers: Hypertension type: essential hypertension Qualified Code(s): I10 - Essential (primary) hypertension (6) Seizure disorder Code(s): G40.909 - EPILEPSY, UNSP, NOT INTRACTABLE, WITHOUT STATUS EPILEPTICUS Status: Chronic - Plan Plan: Case of an 69y/o male who present with an episode of tia and seizure tia - reported R sided weakness, now resolved - head ct negative - cta negative - will get 2d echo - will get mri - continue secondary prevention with asa / plavix + statin - neurology consult - evaluation of modifiable risk factors with lipid panel and a1c - speech / pt / ot seizures - given keppra iv at ED - continue keppra po - continue dilantin - likely secondary to possible stroke htn - will hold medication for for permissive htn copd - prn nebs cad - continue asa plavix stain, re start htn medication once permissive htn is completed
[2020-08-27 01:38] LABS: Lactic Acid 1.6 mmol/L (0.5-2.2)
[2020-08-27 01:47] LABS: Troponin I Less than 0.010 ng/mL (< 0.028)
[2020-08-27] MEDS ORDERED: HYDROcodone/Acetaminophen 5/325 mg Tablet PO PRN ×2 (02:36)
[2020-08-27 04:41] LABS: Hemoglobin A1c 4.9 % (4.0-6.0)
[2020-08-27 05:18] VITALS: BMI 33.0
[2020-08-27 05:28] LABS: Cardiac Risk 1.9 (Less than 4.5)
[2020-08-27 05:33] LABS: SARS-CoV-2 MS2 Positive; SARS-CoV-2 N Gene Negative; SARS-CoV-2 S Gene Negative; SARS-CoV-2 by NAA Not Detected (NotDetected); SARS-CoV-2 orf1ab Negative
[2020-08-27] MEDS ORDERED: Nitroglycerin 0.4 MG TAB (25 Tab Bottle) SL PRN (07:55)
[2020-08-27] MEDS ORDERED: Albuterol Sulfate 2.5 mg/3 ml Neb NEB PRN (07:55)
[2020-08-27] MEDS ORDERED: Loratadine 10 MG TAB PO PRN (07:56)
[2020-08-27] MEDS ORDERED: Bisacodyl 10 MG SUPP PR PRN (07:56)
[2020-08-27] MEDS ORDERED: Sodium Chloride 0.65% Nasal 44 ML BOT EA NARE PRN (07:56)
[2020-08-27] MEDS ORDERED: Diabetic Tussin 200 MG/10 ML UDCUP PO PRN (07:56)
[2020-08-27] MEDS ORDERED: Loperamide HCl 2 MG CAP PO PRN (07:56)
[2020-08-27] MEDS ORDERED: Senokot S 8.6-50 MG TAB PO PRN (07:56)
[2020-08-27] MEDS ORDERED: Cepastat Lozenges 1 LOZ PO PRN (07:56)
[2020-08-27] MEDS ORDERED: Zolpidem Tartrate 5 MG TAB PO PRN (07:56)
--- NOTE | 2020-08-27 10:51 | CT ---
CT angiogram head and neck: 08/24/2020 COMPARISON: None HISTORY: Right-sided weakness, acute stroke protocol TECHNIQUE: Axial CT imaging at 2.5 mm intervals from the vertex through the lung apices with IV contr ast using CT angiogram protocol with coronal and sagittal 3-D reformatted imaging FINDINGS: The imaged lung apices are unremarkable. Partially visualized transvenous pacing device pre sent. There is mucosal thickening involving the alveolar recess of the maxillary sinus and sphenoid sinus on the right. Evidence of prior paranasal sinus surgery. The retroantral fat and the parapharyngeal fat appears clear bilaterally. The parotid glands, submand ibular glands, tonsillar pillars, epiglottis and preepiglottic fat, hyoid bone, thyroid cartilage, cricoid cartilage, level of the glottis, and thyroid gland appear grossly unremarkable. No lymphadeno breonna is seen in the neck. No hemodynamically significant stenosis seen at the origin of the great vessels. There is marked tortuosity of the internal carotid arteries bilaterally. The common carotid arteries are tortuous bilaterally, left greater than right. On the basis of NASCET criteria there is no hemodynamically significant stenosis seen involving the i nternal carotid artery or the common carotid artery on either side. There is atherosclerotic calcification of the distal CCA and the proximal ICA bilaterally. Bilateral vertebral arteries are patent with distal atherosclerotic calcification. The basilar artery is tortuous. The basilar artery is patent. There is no saccular aneurysm, high-gra de stenosis, or vascular occlusion involving the basilar artery and its branches aside from distal left B[employer]IVER irregularity associated with prior left CCA infarction. There is atherosclerotic calcification of the cavernous carotid arteries. The M1 segment is patent bi laterally. The A1 segment is patent bilaterally. The distal JAYCEE branches appear unremarkable. The ICA bifurcation and the MCA bifurcation appears unremarkable bilaterally. The distal MCA branches appear intact bilaterally. No saccular aneurysm, high-grade stenosis, or vascular occlusion is seen involving the anterior circulation on either side. Review of the osseous structures demonstrates no acute findings. There is multilevel mid cervical spi ne disc space narrowing with degenerative endplate change as well as facet and uncovertebral osteophyte formation. IMPRESSION: No acute arterial abnormality. Numerous incidental findings as detailed above. Results called to Dr. Wade at 10:35 PM 08/26/2020 Transcribed Date/Time: 08/27/2020 10:51 AM
[2020-08-27] MEDS: Enoxaparin Sodium 40 MG/0.4 ML SYRINGE SC SCH (11:03)
[2020-08-27] MEDS: levETIRAcetam 500 MG TAB PO SCH ×2 (11:04→22:28)
[2020-08-27] MEDS: Aspirin 81 mg Enteric Coated Tablet PO SCH (11:04)
[2020-08-27] MEDS: Clopidogrel Bisulfate 75 MG TAB PO SCH (11:04)
[2020-08-27] MEDS: Calcitriol 0.25 MCG CAP PO SCH (11:09)
[2020-08-27] MEDS: Cholecalciferol 1,000 UNITS (25 MCG) TAB PO SCH (11:09)
[2020-08-27] MEDS: DULoxetine 30 MG CAP PO SCH ×2 (11:10→22:29)
[2020-08-27] MEDS: NIFEdipine XL 60 MG TAB PO SCH (11:10)
[2020-08-27] MEDS: Metoprolol Tartrate 50 MG TAB PO SCH ×2 (11:10→22:29)
[2020-08-27] MEDS: FLU VACC QS2020-21(65YR UP)/PF 240 MCG/0.7 ML SYRINGE IM ONE ×2 (11:12→11:22)
[2020-08-27] MEDS: Bupropion 150 MG SR TAB PO SCH (11:28)
--- NOTE | 2020-08-27 11:42 | PDOC.HOSPP ---
- Subjective Encounter Date: 08/27/20 Encounter Time: 09:00 Subjective: Patient reports chief complaint of "confusion" this morning. He cannot find the words to describe what this means to him. He states this has happened before, but feels different this time. He has no memory of the events leading up to his hospitalization, and the last thing he remembers is doing the dishes and his eyes "feeling funny" and "seeing black dots," so he went to lie down in the hopes it would resolve. He does not remember if he lost consciousness or fell. Patient denies current or previous right sided weakness with this episode, although H&P yesterday reports that he had initial right sided weakness without significant PE findings. Endorses pain on the eyelids bilaterally, describing the sensation of his "head pushing into his eyelids." Denies pain anywhere else including [place], muscle pain/cramps, chest pain, or abdominal pain. Denies blurry vision or floaters, but endorses vision changes described as "seeing through moving water." Endorses occasional chest pain, but cannot remember if he has had any since his hospitalization. The patient believes this is his "time to go," but denies suicidal ideation or intent. - Objective Vital Signs & Weight: Vital Signs (12 hours) Temp Pulse Pulse Pulse Resp BP BP 08/27/20 11:10 64 08/27/20 09:35 61 79 135/71 149/78 H 08/27/20 07:57 97.8 F 64 16 08/27/20 04:24 98.6 F 62 30 H 08/27/20 01:40 98.6 F 80 26 H BP BP Pulse Ox Pulse Ox 08/27/20 11:10 08/27/20 09:35 94 L 08/27/20 07:57 133/83 96 08/27/20 04:24 153/75 H 99 08/27/20 01:40 178/102 H 97 Weight Weight 110.495 kg Result Diagrams: 08/26/20 22:27 08/26/20 22:35 Additional Labs: Accuchecks 08/26/20 22:17 POC Glucose 151 H Hospitalist ROS - Review of Systems Constitutional: denies: fever, chills Eyes: reports: vision change ("like seeing through moving water"), other (Eyelid pain bilaterally). denies: pain, eyelid inflammation ENT: denies: nose pain, throat pain Respiratory: denies: shortness of breath, pleuritic pain Cardiovascular: reports: chest pain (Unsure). denies: edema, light headedness Gastrointestinal: denies: nausea, vomiting, abdominal pain, diarrhea, constipation Genitourinary: denies: dysuria Musculoskeletal: reports: other (Denies generalized mm. pain) Neurological: reports: weakness, incoordination, change in speech, confusion - Medication Medications: Active Medications Generic Name Dose Route Start Last Admin Trade Name Freq PRN Reason Stop Dose Admin Acetaminophen 650 mg 08/27/20 01:10 08/27/20 02:06 Acetaminophen 325 Mg Tab PO 650 mg Q4H PRN Administration Headache/Fever/Mild Pain (1-3) Aspirin 81 mg 08/27/20 09:00 08/27/20 11:04 Aspirin 81 Mg Enteric Coated Tablet PO 81 mg DAILY UGO Administration Bupropion HCl 150 mg 08/27/20 09:00 08/27/20 11:28 Bupropion 150 Mg Sr Tab PO 150 mg DAILY UGO Administration Calcitriol 0.25 mcg 08/27/20 09:00 08/27/20 11:09 Calcitriol 0.25 Mcg Cap PO 0.25 mcg DAILY UGO Administration Cholecalciferol 2,000 units 08/27/20 09:00 08/27/20 11:09 Cholecalciferol 1,000 Units (25 Mcg) Tab PO 2,000 units DAILY UGO Administration Clopidogrel Bisulfate 75 mg 08/27/20 09:00 08/27/20 11:04 Clopidogrel Bisulfate 75 Mg Tab PO 75 mg DAILY UGO Administration Duloxetine HCl 30 mg 08/27/20 09:00 08/27/20 11:10 Duloxetine 30 Mg Cap PO 30 mg BID UGO Administration Enoxaparin Sodium 40 mg 08/27/20 09:00 08/27/20 11:03 Enoxaparin Sodium 40 Mg/0.4 Ml Syringe SC 40 mg 899 UGO Administration Levetiracetam 500 mg 08/27/20 09:00 08/27/20 11:04 Levetiracetam 500 Mg Tab PO 500 mg BID UGO Administration Metoprolol Tartrate 50 mg 08/27/20 09:00 08/27/20 11:10 Metoprolol Tartrate 50 Mg Tab PO 50 mg BID UGO Administration Nifedipine 60 mg 08/27/20 09:00 08/27/20 11:10 Nifedipine Xl 60 Mg Tab PO 60 mg DAILY UGO Administration Pantoprazole Sodium 40 mg 08/27/20 09:00 08/27/20 11:10 Pantoprazole 40 Mg Tab PO 40 mg DAILY UGO Administration Phenytoin Sodium 200 mg 08/27/20 09:00 08/27/20 11:04 Phenytoin Sodium Extended 100 Mg Cap PO 200 mg BID UGO Administration - Exam General Appearance: NAD, awake alert General - other findings: appears confused and was seated at the edge of the bed Eye: PERRL, anicteric sclera Eye - other findings: right sided nystagmus on right lateral gaze ENT: normocephalic atraumatic Neck: supple, symmetric, no JVD, no carotid bruit Heart: RRR, no murmur, no gallops, no rubs, normal peripheral pulses Respiratory: CTAB, no wheezes, no rales, no ronchi, normal chest expansion, no tachypnea Gastrointestinal: soft, non-tender, non-distended, normal bowel sounds Extremities: no cyanosis, no clubbing, no edema Skin - other findings: Bilateral upper and lower extremity bruising Neurological: cranial nerve grossly intact, normal sensation to touch, speech deficit (Aphasia) Musculoskeletal: normal tone, normal strength, no muscle wasting Psychiatric: oriented to person, oriented to time Psychiatric - other findings: Labile affect Hosp A/P (1) CAD (coronary artery disease) Code(s): I25.10 - ATHSCL HEART DISEASE OF [place] CORONARY ARTERY W/O ANG PCTRS Status: Acute (2) Anxiety Code(s): F41.9 - ANXIETY DISORDER, UNSPECIFIED Status: Acute (3) Cholelithiasis Code(s): K80.20 - CALCULUS OF GALLBLADDER W/O CHOLECYSTITIS W/O OBSTRUCTION Status: Acute (4) H/O renal cell cancer Code(s): Z85.528 - PERSONAL HISTORY OF OTHER MALIGNANT NEOPLASM OF KIDNEY Status: Acute (5) CKD (chronic kidney disease) stage 4, GFR 15-29 ml/min Code(s): N18.4 - CHRONIC KIDNEY DISEASE, STAGE 4 (SEVERE) Status: Chronic (6) COPD (chronic obstructive pulmonary disease) Status: Chronic Qualifiers: COPD type: emphysema Emphysema type: unspecified Qualified Code(s): J43.9 - Emphysema, unspecified (7) HTN (hypertension) Code(s): I10 - ESSENTIAL (PRIMARY) HYPERTENSION Status: Chronic Qualifiers: Hypertension type: essential hypertension Qualified Code(s): I10 - Essential (primary) hypertension (8) History of CVA (cerebrovascular accident) Code(s): Z86.73 - PRSNL HX OF TIA (TIA), AND CEREB INFRC W/O RESID DEFICITS Status: Chronic (9) Seizure disorder Code(s): G40.909 - EPILEPSY, UNSP, NOT INTRACTABLE, WITHOUT STATUS EPILEPTICUS Status: Chronic (10) SSS (sick sinus syndrome) Code(s): I49.5 - SICK SINUS SYNDROME Status: Suspected - Plan old records reviewed/req This patient is a 69 YO man with a PMH of recurrent seizures, CAD, RENETTA, and HTN who presented yesterday due to AMS and right sided weakness secondary to presumed seizure. He complains of confusion today, congruent with confused affect and inability to procure certain words. He is also concerned about his vision, as he saw black spots before his episode yesterday and is now complaining of eyelid pain along with his vision appearing like he is "looking through moving water." 1. TIA vs Seizure: today, he denied R sided weakness that he reported upon admission. No weakness on PE. CT and CTA have been negative. -awaiting MRI results -2d Echo tomorrow or sooner if MRI reveals ischemic stroke -Continue ASA, Plavix, Statin, Keppra, and Dilantin until imaging confirms diagnosis -Consult Speech/PT/OT and Neurology 2. Lactic Acidosis: decreased from 5.1 yesterday to 1.6 today. Consistent with seizure activity. -resolved 3. Confusion: Post-ictal vs Aphasic stroke -awaiting MRI results -Consult Speech/PT/OT and Neurology 4. Vision Changes: permissive HTN vs increased intracranial pressure vs post- ictal psychosis. Denies home alcohol use, so suspicion for DT is low. -Start metoprolol and nifedipine to r/o HTN urgency and monitor vitals Qshift; give Nitroglycerin PRN for chest pain or sBP >190 -Start low dose IV Seroquel -consider LP opening pressure if Sx not resolved with medication or worsens 5. COPD -O2 stable at upper 90s -Neb PRN 6. CAD -continue ASA, plavix, statin -HTN medication restarted I have reviewed note and agree with the above mentioned note We will obtain EEG and will consult neurology Discharge pending neurology clearance
--- NOTE | 2020-08-27 12:44 | PDOC.HOSPP ---
- Subjective Encounter Date: 08/27/20 Encounter Time: 10:25 Subjective: Patient seen and examined. No new complaints. No overnight events, patient is hard of hearing, - Objective Vital Signs & Weight: Vital Signs (12 hours) Temp Pulse Pulse Pulse Resp BP BP 08/27/20 11:36 97.7 F 63 16 08/27/20 11:10 64 08/27/20 09:35 61 79 135/71 149/78 H 08/27/20 07:57 97.8 F 64 16 08/27/20 04:24 98.6 F 62 30 H 08/27/20 01:40 98.6 F 80 26 H BP BP Pulse Ox Pulse Ox 08/27/20 11:36 137/76 99 08/27/20 11:10 08/27/20 09:35 94 L 08/27/20 07:57 133/83 96 08/27/20 04:24 153/75 H 99 08/27/20 01:40 178/102 H 97 Weight Admit Weight 243 lb 9.6 oz Weight 243 lb 9.6 oz Result Diagrams: 08/26/20 22:27 08/26/20 22:35 Additional Labs: Accuchecks 08/26/20 22:17 POC Glucose 151 H Radiology Reviewed by me: Yes EKG Reviewed by me: Yes Hospitalist ROS - Review of Systems ROS unobtainable: due to mental status - Medication Medications: Active Medications Generic Name Dose Route Start Last Admin Trade Name Freq PRN Reason Stop Dose Admin Acetaminophen 650 mg 08/27/20 01:10 08/27/20 02:06 Acetaminophen 325 Mg Tab PO 650 mg Q4H PRN Administration Headache/Fever/Mild Pain (1-3) Aspirin 81 mg 08/27/20 09:00 08/27/20 11:04 Aspirin 81 Mg Enteric Coated Tablet PO 81 mg DAILY UGO Administration Bupropion HCl 150 mg 08/27/20 09:00 08/27/20 11:28 Bupropion 150 Mg Sr Tab PO 150 mg DAILY UGO Administration Calcitriol 0.25 mcg 08/27/20 09:00 08/27/20 11:09 Calcitriol 0.25 Mcg Cap PO 0.25 mcg DAILY UGO Administration Cholecalciferol 2,000 units 08/27/20 09:00 08/27/20 11:09 Cholecalciferol 1,000 Units (25 Mcg) Tab PO 2,000 units DAILY UGO Administration Clopidogrel Bisulfate 75 mg 08/27/20 09:00 08/27/20 11:04 Clopidogrel Bisulfate 75 Mg Tab PO 75 mg DAILY UGO Administration Duloxetine HCl 30 mg 08/27/20 09:00 08/27/20 11:10 Duloxetine 30 Mg Cap PO 30 mg BID UGO Administration Enoxaparin Sodium 40 mg 08/27/20 09:00 08/27/20 11:03 Enoxaparin Sodium 40 Mg/0.4 Ml Syringe SC 40 mg 09 UGO Administration Levetiracetam 500 mg 08/27/20 09:00 08/27/20 11:04 Levetiracetam 500 Mg Tab PO 500 mg BID UGO Administration Metoprolol Tartrate 50 mg 08/27/20 09:00 08/27/20 11:10 Metoprolol Tartrate 50 Mg Tab PO 50 mg BID UGO Administration Nifedipine 60 mg 08/27/20 09:00 08/27/20 11:10 Nifedipine Xl 60 Mg Tab PO 60 mg DAILY UGO Administration Pantoprazole Sodium 40 mg 08/27/20 09:00 08/27/20 11:10 Pantoprazole 40 Mg Tab PO 40 mg DAILY UGO Administration Phenytoin Sodium 200 mg 08/27/20 09:00 08/27/20 11:04 Phenytoin Sodium Extended 100 Mg Cap PO 200 mg BID UGO Administration - Exam General Appearance: NAD, awake alert Eye: PERRL, anicteric sclera ENT: normocephalic atraumatic, no oropharyngeal lesions Neck: supple, symmetric, no JVD Heart: RRR, no murmur, no gallops Respiratory: no wheezes, no rales, no ronchi Gastrointestinal: soft, non-tender, non-distended, normal bowel sounds Extremities: no clubbing, no edema Skin: normal turgor, no lesions Neurological: no new deficit Musculoskeletal: normal tone, normal strength Psychiatric: normal affect, normal behavior Hosp A/P (1) CAD (coronary artery disease) Code(s): I25.10 - ATHSCL HEART DISEASE OF [place] CORONARY ARTERY W/O ANG PCTRS Status: Acute (2) Anxiety Code(s): F41.9 - ANXIETY DISORDER, UNSPECIFIED Status: Acute (3) Cholelithiasis Code(s): K80.20 - CALCULUS OF GALLBLADDER W/O CHOLECYSTITIS W/O OBSTRUCTION S tatus: Acute (4) H/O renal cell cancer Code(s): Z85.528 - PERSONAL HISTORY OF OTHER MALIGNANT NEOPLASM OF KIDNEY Status: Acute (5) CKD (chronic kidney disease) stage 4, GFR 15-29 ml/min Code(s): N18.4 - CHRONIC KIDNEY DISEASE, STAGE 4 (SEVERE) Status: Chronic (6) COPD (chronic obstructive pulmonary disease) Status: Chronic Qualifiers: COPD type: emphysema Emphysema type: unspecified Qualified Code(s): J43.9 - Emphysema, unspecified (7) HTN (hypertension) Code(s): I10 - ESSENTIAL (PRIMARY) HYPERTENSION Status: Chronic Qualifiers: Hypertension type: essential hypertension Qualified Code(s): I10 - Essential (primary) hypertension (8) History of CVA (cerebrovascular accident) Code(s): Z86.73 - PRSNL HX OF TIA (TIA), AND CEREB INFRC W/O RESID DEFICITS Status: Chronic (9) Seizure disorder Code(s): G40.909 - EPILEPSY, UNSP, NOT INTRACTABLE, WITHOUT STATUS EPILEPTICUS Status: Chronic (10) SSS (sick sinus syndrome) Code(s): I49.5 - SICK SINUS SYNDROME Status: Suspected - Plan old records reviewed/req This patient is a 69 YO man with a PMH of recurrent seizures, CAD, RENET[place], and HTN who presented yesterday due to AMS and right sided weakness secondary to presumed seizure. He complains of confusion today, congruent with confused affect and inability to procure certain words. He is also concerned about his vision, as he saw black spots before his episode yesterday and is now complaining of eyelid pain along with his vision appearing like he is "looking through moving water." 1. TIA vs Seizure: today, he denied R sided weakness that he reported upon admission. No weakness on PE. CT and CTA have been negative. -awaiting MRI results -2d Echo tomorrow or sooner if MRI reveals ischemic stroke -Continue ASA, Plavix, Statin, Keppra, and Dilantin until imaging confirms diagnosis -Consult Speech/PT/OT and Neurology 2. Lactic Acidosis: decreased from 5.1 yesterday to 1.6 today. Consistent with seizure activity. -resolved 3. Confusion: Post-ictal vs Aphasic stroke -awaiting MRI results -Consult Speech/PT/OT and Neurology 4. Vision Changes: permissive HTN vs increased intracranial pressure vs post- ictal psychosis. Denies home alcohol use, so suspicion for DT is low. -Start metoprolol and nifedipine to r/o HTN urgency and monitor vitals Qshift; give Nitroglycerin PRN for chest pain or sBP >190 -Start low dose IV Seroquel -consider LP opening pressure if Sx not resolved with medication or worsens 5. COPD -O2 stable at upper 90s -Neb PRN 6. CAD -continue ASA, plavix, statin -HTN medication restarted I have reviewed note and agree with the above mentioned note We will obtain EEG and will consult neurology Discharge pending neurology clearance
[2020-08-27] MEDS ORDERED: Atorvastatin Calcium 40 MG TAB PO SCH (21:00)
--- NOTE | 2020-08-27 21:04 | CON ---
DATE OF CONSULTATION: 08/27/2020 CONSULTING PHYSICIAN: Hospitalist Service. IMPRESSION: 1. Breakthrough seizure, which is the first in many years. 2. History of stroke. 3. Renal cancer. 4. Chronic obstructive pulmonary disease. 5. Coronary artery disease. 6. Hypertension. PLAN: 1. Continue current doses of Keppra and Dilantin. 2. Office followup. HISTORY OF PRESENT ILLNESS: Mr. Hester is an elderly gentleman with a known history of seizures. He reports it has been at least 2 years since his last seizure. He had a seizure, which necessitated his admission. His Dilantin level was 12. His Keppra level was 31. He reports compliance prior to admission. He had a CT and CT angiogram, both of which were unremarkable. He has not had any further seizure activity. He is COVID negative. His lab work was otherwise unremarkable. He reports that he mentally feels a little foggy compared to his baseline, but otherwise feels like things are going well. PAST MEDICAL HISTORY: As listed above. ALLERGIES: NONE. SOCIAL HISTORY: Positive for tobacco and some alcohol use. FAMILY HISTORY: Noncontributory. MEDICATIONS: List was reviewed. REVIEW OF SYSTEMS: Ten-system review of systems is otherwise negative. PHYSICAL EXAMINATION: GENERAL: He is a well-nourished elderly man, in no distress. VITAL SIGNS: Stable. He is afebrile. HEENT: Pupils are equal and reactive. Conjunctivae clear. Oropharynx clear. NECK: Supple. CHEST: Clear. ABDOMEN: Soft and nontender. EXTREMITIES: No cyanosis or edema. SKIN: Clear. NEUROLOGIC: He was alert and cooperative. His speech was fluent and clear. He knew the month, but had trouble pulling up the name of the hospital in the city. He followed commands appropriately. He had no focal deficits on exam. No abnormal movements were seen. SUMMARY: Given that this is a rare event for him, I would leave his doses the same and follow up with him in the office. Job ID: [id number]
[2020-08-28 05:08] LABS: Anion Gap 14 mmol/L (10-20); BUN (Urea Nitrogen) 29 mg/dL (8.4-25.7); Calc. Creatinine Clearance 39 mL/min (70-130); Calcium 8.1 mg/dL (7.8-10.44); Carbon Dioxide 24 mmol/L (23-31); Chloride 106 mmol/L (98-107); Estimated GFR-MDRD 23; Glucose 96 mg/dL (83-110); Lactic Acid 0.7 mmol/L (0.5-2.2); Potassium 4.1 mmol/L (3.5-5.1); Sodium 140 mmol/L (136-145)
[2020-08-28 05:18] LABS: #Eosinphils 0.3 thou/uL (0.0-0.7); #Lymphocytes 2.1 thou/uL (1.20-3.40); #Monocytes 0.7 thou/uL (0.11-0.59); #Neutrophils 3.7 thou/uL (1.40-6.50); %Basophils 0.6 % (0.0-1.0); %Eosinophils 3.9 % (0.0-10.0); %Lymphocytes 31.1 % (21.0-51.0); %Monocytes 9.7 % (0.0-10.0); %Neutrophils 54.8 % (42.0-75.0); Hemoglobin 11.3 g/dL (14.0-18.0); Mean Corpuscular HGB CONC 32.4 g/dL (32.0-36.0); Mean Corpuscular Hemoglobin 32.9 pg (27.0-31.0); Mean Platelet Volume 8.9 fL (7.4-10.4); Platelet Count 133 thou/uL (130-400); RBC Distribution Width 12.5 % (11.5-14.5); Red Blood Cell (RBC) Count 3.44 mill/uL (4.70-6.10); White Blood Cell (WBC) Count 6.8 thou/uL (4.8-10.8)
[2020-08-28] MEDS: Bupropion 150 MG SR TAB PO SCH (09:32)
[2020-08-28] MEDS: Cholecalciferol 1,000 UNITS (25 MCG) TAB PO SCH (09:32)
[2020-08-28] MEDS: Calcitriol 0.25 MCG CAP PO SCH (09:32)
[2020-08-28] MEDS: Enoxaparin Sodium 40 MG/0.4 ML SYRINGE SC SCH (09:32)
[2020-08-28] MEDS: levETIRAcetam 500 MG TAB PO SCH (09:33)
[2020-08-28] MEDS: Clopidogrel Bisulfate 75 MG TAB PO SCH (09:33)
[2020-08-28] MEDS: NIFEdipine XL 60 MG TAB PO SCH (09:33)
[2020-08-28] MEDS: DULoxetine 30 MG CAP PO SCH (09:33)
[2020-08-28] MEDS: Metoprolol Tartrate 50 MG TAB PO SCH (09:33)
[2020-08-28] MEDS: Aspirin 81 mg Enteric Coated Tablet PO SCH (09:33)
--- NOTE | 2020-08-28 10:55 | PDOC.DS.DS ---
Provider - Provider Date of Admission: 08/26/20 23:43 Date of Discharge: 08/28/20 Admitting Provider: Jose Guerra Consultations: Neurology Primary Care Physician: ELLEN Matthews Course - Hospital Course Hospital Course: 69-year-old male who has history of CVA and a seizure disorder who was brought to emergency room for altered mental status, which was attributed to be due to post ictal state, his presentation was suspected for breakthrough seizure, on admission he had routine laboratory test which showed lactic acidosis that was attributed to be due to recent seizure at home. He was brought to emergency room and he had CT brain which showed no acute intracranial hemorrhage but there was encephalomalacia within occipital lobe on the left side consistent with a left [employer] territory infarction, CT chinik of [place] with a CT angiography did not show any acute process, we were not able to do MRI because of his pacemaker, his chest x-ray was normal. Echocardiography was obtained which showed normal EF. Neurology evaluated this patient in the hospital, and they recommended that patient should continue his Keppra and Dilantin at the same dose, patient will continue all his previous medication without any significant change. Telemetry remained unremarkable and patient is overall medically stable for discharge today. Resuscitation Status: 08/27/20 01:10 Resuscitation Status Routine Resuscitation Status: FULL: Full Resuscitation - Labs Lab Results: 08/28/20 04:41 08/28/20 04:41 Abnormal Lab Results - Last 48 hrs 08/26/20 22:27: APTT 17.5 L 08/26/20 22:27: RBC 3.71 L, Hgb 12.2 L, Hct 37.8 L, MCV 102.0 H, MCH 32.9 H, Neutrophils # 6.6 H, Monocytes # 0.9 H 08/26/20 22:27: Lactic Acid 5.1 H* 08/26/20 22:35: Carbon Dioxide 16 L, BUN 27 H, Creatinine 2.65 H 08/26/20 22:35: Salicylates Less than 8.0 L, Acetaminophen Less than 6.0 L 08/26/20 23:11: VBG pH 7.27 L, VBG pCO2 55.4 H, VBG pO2 70.6 H, VBG O2 Sat (Yamil) 93.3 H, VBG Base Excess -2.4 L, VBG Hematocrit 36.0 L, VBG Hemoglobin 12.1 L, VBG Ionized Calcium 1.10 L 08/28/20 04:41: BUN 29 H, Creatinine 2.70 H 08/28/20 04:41: RBC 3.44 L, Hgb 11.3 L, Hct 34.9 L, MCV 101.0 H, MCH 32.9 H, Monocytes # 0.7 H - Diagnostic Interpretation Chest x-ray Additional comments: Chronic changes no acute process CT scan - head Additional comments: Old encephalomalacia no acute process Other Additional comments: CT angiography no acute process Echocardiography diastolic dysfunction - Physical Exam Vitals: Vital Signs (12 hours) Temp Pulse Resp BP Pulse Ox 08/28/20 09:33 68 08/28/20 07:42 98.0 F 68 20 138/90 98 08/28/20 04:31 98.1 F 81 18 150/89 H 100 08/27/20 23:58 98.1 F 68 20 139/79 98 Weight Admit Weight 243 lb 9.6 oz Weight 243 lb 9.6 oz Physical Exam: The patient was seen and examined on the day of discharge. General patient is currently alert and awake no acute distress Head normocephalic atraumatic Neck supple no JVD no meningeal signs of irritation Lungs clear to auscultation without any rhonchi or rales Cardiac S1-S2 regular no murmur no gallop no rub Abdomen soft, bowel sounds present, Extremity no edema Neurologically nonfocal examination without any new finding, Problem - Problem (1) CAD (coronary artery disease) Code(s): I25.10 - ATHSCL HEART DISEASE OF [place] CORONARY ARTERY W/O ANG PCTRS Status: Acute (2) Anxiety Code(s): F41.9 - ANXIETY DISORDER, UNSPECIFIED Status: Acute (3) Cholelithiasis Code(s): K80.20 - CALCULUS OF GALLBLADDER W/O CHOLECYSTITIS W/O OBSTRUCTION Status: Acute (4) H/O renal cell cancer Code(s): Z85.528 - PERSONAL HISTORY OF OTHER MALIGNANT NEOPLASM OF KIDNEY Status: Acute (5) CKD (chronic kidney disease) stage 4, GFR 15-29 ml/min Code(s): N18.4 - CHRONIC KIDNEY DISEASE, STAGE 4 (SEVERE) Status: Chronic (6) COPD (chronic obstructive pulmonary disease) Status: Chronic Qualifiers: COPD type: emphysema Emphysema type: unspecified Qualified Code(s): J43.9 - Emphysema, unspecified (7) HTN (hypertension) Code(s): I10 - ESSENTIAL (PRIMARY) HYPERTENSION Status: Chronic Qualifiers: Hypertension type: essential hypertension Qualified Code(s): I10 - Essential (primary) hypertension (8) History of CVA (cerebrovascular accident) Code(s): Z86.73 - PRSNL HX OF TIA (TIA), AND CEREB INFRC W/O RESID DEFICITS Status: Chronic (9) Seizure disorder Code(s): G40.909 - EPILEPSY, UNSP, NOT INTRACTABLE, WITHOUT STATUS EPILEPTICUS Status: Chronic (10) SSS (sick sinus syndrome) Code(s): I49.5 - SICK SINUS SYNDROME Status: Suspected Plan - Discharge Medications Home Medications: Medication Instructions Recorded Confirmed Type Clopidogrel Bisulfate [Plavix] 75 mg PO DAILY 07/12/17 08/27/20 History DULoxetine HCl [Cymbalta] 30 mg PO BID 07/12/17 08/27/20 History Levetiracetam [levETIRAcetam] 500 mg PO BID 07/12/17 08/27/20 History Phenytoin Sodium Extended 4 cap PO DAILY 07/12/17 08/27/20 History [Dilantin] NIFEdipine [Nifedipine ER] 60 mg PO DAILY 01/23/18 08/27/20 History Pantoprazole [Protonix] 40 mg PO DAILY 07/07/18 08/27/20 History buPROPion HCl [buPROPion HCl SR] 150 mg PO DAILY 07/07/18 08/27/20 History Atorvastatin Calcium [Lipitor] 40 mg PO HS #30 tab 07/10/18 08/27/20 Rx Albuterol Sulfate [Albuterol 2 puff NEB Q4HR PRN 12/07/19 08/27/20 History Sulfate Neb] Aspirin [Aspirin EC] 81 mg PO DAILY 12/07/19 08/27/20 History Calcitriol [Rocaltrol] 0.25 mcg PO DAILY 12/07/19 08/27/20 History Metoprolol Tartrate [Lopressor] 50 mg PO BID #60 tab 12/09/19 08/27/20 Rx Cholecalciferol (Vitamin D3) 1 cap PO DAILY 08/27/20 08/27/20 History [Vitamin D3] Nitroglycerin [Nitrostat] 0.4 mg SL PRN PRN 08/27/20 08/27/20 History Allergies: Penicillins Allergy (Verified 12/07/19 10:49) Sulfa (Sulfonamide Antibiotics) Allergy (Verified 12/07/19 10:49) - Discharge Instructions Activity:: Activity as Tolerated Nourishment:: Heart Healthy Diet Therapies:: Not Applicable Equipment/Supplies:: Not Applicable IV Therapy:: Not Applicable - Follow up Plan Referrals: Alcira Orozco FNP [Primary Care Provider] - Disposition: HOME Quality - Care Measures CORE MEASURES:: N/A
[2020-08-28 11:30] VITALS: TEMP 98.4
[2020-08-28 13:27] VITALS: BP 150/86
== END 2020-08-28 13:18 | disposition home or self-care (01) | DRG 101 ==
LOC: ERS 22:14 → 2SE 23:43
PROVIDERS: ADMIT Internal Medicine; ATTEND Internal Medicine
DX: G40.909 Epilepsy, unspecified, not intractable, without status epilepticus (principal); G45.9 Transient cerebral ischemic attack, unspecified; N18.4 Chronic kidney disease, stage 4 (severe); E87.2 Acidosis; Z20.828 Contact with and (suspected) exposure to other viral communicable diseases; I25.10 Atherosclerotic heart disease of native coronary artery without angina pectoris; F41.9 Anxiety disorder, unspecified; J43.9 Emphysema, unspecified; I49.5 Sick sinus syndrome; F17.210 Nicotine dependence, cigarettes, uncomplicated; I12.9 Hypertensive chronic kidney disease with stage 1 through stage 4 chronic kidney disease, or unspecified chronic kidney disease; Z85.528 Personal history of other malignant neoplasm of kidney; Z86.73 Personal history of transient ischemic attack (TIA), and cerebral infarction without residual deficits; Z88.0 Allergy status to penicillin; Z88.1 Allergy status to other antibiotic agents; Z79.51 Long term (current) use of inhaled steroids; Z79.82 Long term (current) use of aspirin; Z79.899 Other long term (current) drug therapy; Z90.49 Acquired absence of other specified parts of digestive tract
CPT/HCPCS: 36415; 36416; 70450; 70496; 70498; 71045; 80048; 80053; 80061; 80177; 80185; 80307; 82550; 82805; 83036; 83605; 83735; 84443; 84484; 85025; 85610; 85730; 86850; 86900; 86901; 87635; 90471; 90662; 93005; 93306; 95816; 95819; 96365; 96375; G0008; J1650; J1953; J2405; Q9967; U0003

== ENCOUNTER 2021-01-23 09:12 | Emergency (ER) | payer MEDICARE ==
[2021-01-23 09:55] LABS: #Basophils 0.1 thou/uL (0.0-0.2); #Eosinphils 0.2 thou/uL (0.0-0.7); #Lymphocytes 1.5 thou/uL (1.20-3.40); #Monocytes 0.4 thou/uL (0.11-0.59); #Neutrophils 4.6 thou/uL (1.40-6.50); %Basophils 0.9 % (0.0-1.0); %Eosinophils 2.7 % (0.0-10.0); %Lymphocytes 21.8 % (21.0-51.0); %Monocytes 5.7 % (0.0-10.0); %Neutrophils 68.8 % (42.0-75.0); Hemoglobin 11.9 g/dL (14.0-18.0); Mean Corpuscular HGB CONC 33.4 g/dL (32.0-36.0); Mean Corpuscular Hemoglobin 33.9 pg (27.0-31.0); Mean Platelet Volume 8.8 fL (7.4-10.4); Platelet Count 147 thou/uL (130-400); RBC Distribution Width 12.6 % (11.5-14.5); Red Blood Cell (RBC) Count 3.52 mill/uL (4.70-6.10); White Blood Cell (WBC) Count 6.7 thou/uL (4.8-10.8)
[2021-01-23 10:18] LABS: ALT (SGPT) 12 U/L (8-55); AST (SGOT) 18 U/L (5-34); Albumin 3.8 g/dL (3.4-4.8); Alkaline Phosphatase 105 U/L (40-110); Anion Gap 14 mmol/L (10-20); BUN (Urea Nitrogen) 28 mg/dL (8.4-25.7); Bilirubin, Total 0.4 mg/dL (0.2-1.2); Calc. Creatinine Clearance 0 mL/min (70-130); Calcium 9.1 mg/dL (7.8-10.44); Carbon Dioxide 27 mmol/L (23-31); Chloride 105 mmol/L (98-107); Globulin 2.7 g/dL (2.4-3.5); Glucose 110 mg/dL (83-110); Potassium 4.2 mmol/L (3.5-5.1); Protein, Total 6.5 g/dL (5.8-8.1); Sodium 142 mmol/L (136-145)
== END 2021-01-23 11:13 | disposition home or self-care (01) ==
LOC: ERS 09:12
DX: J44.1 Chronic obstructive pulmonary disease with (acute) exacerbation (principal); I12.9 Hypertensive chronic kidney disease with stage 1 through stage 4 chronic kidney disease, or unspecified chronic kidney disease; N18.4 Chronic kidney disease, stage 4 (severe); Z86.73 Personal history of transient ischemic attack (TIA), and cerebral infarction without residual deficits; G47.33 Obstructive sleep apnea (adult) (pediatric); G62.9 Polyneuropathy, unspecified; F17.210 Nicotine dependence, cigarettes, uncomplicated; Z79.899 Other long term (current) drug therapy; Z79.82 Long term (current) use of aspirin
CPT/HCPCS: 36415; 71045; 80053; 83880; 84484; 85025; 93005; 94640; J7620

== ENCOUNTER 2021-06-19 21:00 | Inpatient (IN) | payer MEDICARE ==
[2021-06-19 21:26] LABS: #Basophils 0.1 thou/uL (0.0-0.2); #Eosinphils 0.2 thou/uL (0.0-0.7); #Lymphocytes 1.9 thou/uL (1.20-3.40); #Monocytes 0.7 thou/uL (0.11-0.59); #Neutrophils 7.2 thou/uL (1.40-6.50); %Basophils 0.9 % (0.0-1.0); %Eosinophils 2.3 % (0.0-10.0); %Lymphocytes 18.8 % (21.0-51.0); %Monocytes 6.8 % (0.0-10.0); %Neutrophils 71.2 % (42.0-75.0); Hemoglobin 11.7 g/dL (14.0-18.0); Mean Corpuscular HGB CONC 33.9 g/dL (32.0-36.0); Mean Platelet Volume 8.3 fL (7.4-10.4); Platelet Count 171 thou/uL (130-400); RBC Distribution Width 12.5 % (11.5-14.5); Red Blood Cell (RBC) Count 3.43 mill/uL (4.70-6.10)
[2021-06-19] MEDS ORDERED: levETIRAcetam in NS 100 ML ONE (21:29)
[2021-06-19 21:37] LABS: Prothrombin Time 13.4 sec (12.0-14.7)
[2021-06-19 21:38] LABS: PTT 24.4 sec (22.9-36.1)
[2021-06-19] MEDS ORDERED: Lorazepam 2 MG/ML VIAL ONE (21:42)
[2021-06-19 21:48] LABS: ALT (SGPT) 9 U/L (8-55); AST (SGOT) 15 U/L (5-34); Albumin 3.7 g/dL (3.4-4.8); Alkaline Phosphatase 103 U/L (40-110); Anion Gap 14 mmol/L (10-20); BUN (Urea Nitrogen) 20 mg/dL (8.4-25.7); Bilirubin, Total 0.2 mg/dL (0.2-1.2); Calc. Creatinine Clearance 0 mL/min (70-130); Calcium 8.2 mg/dL (7.8-10.44); Carbon Dioxide 26 mmol/L (23-31); Chloride 103 mmol/L (98-107); Globulin 2.7 g/dL (2.4-3.5); Glucose 150 mg/dL (83-110); Potassium 3.9 mmol/L (3.5-5.1); Protein, Total 6.4 g/dL (5.8-8.1); Sodium 139 mmol/L (136-145)
[2021-06-19 23:47] VITALS: BMI 32.5
[2021-06-20] MEDS ORDERED: Acetaminophen 325 MG TAB ONE (01:16)
[2021-06-20 04:19] LABS: SARS-CoV-2 NAA Rapid Test Not Detected (NotDetected)
[2021-06-20] MEDS ORDERED: Acetaminophen 650 MG Suppository PR PRN (04:39)
[2021-06-20] MEDS ORDERED: Ondansetron ODT 4 MG TAB PO PRN (04:39)
[2021-06-20] MEDS ORDERED: Acetaminophen 325 MG TAB PO PRN (04:39)
[2021-06-20] MEDS ORDERED: hydrALAZINE 20 MG/ML VIAL SLOW IVP PRN (04:39)
[2021-06-20] MEDS ORDERED: Ondansetron PF 4 MG/2 ML Vial IVP PRN (04:39)
[2021-06-20] MEDS: Lorazepam 2 MG/ML VIAL SLOW IVP PRN (05:56)
[2021-06-20] MEDS: Sodium Chloride 0.9% 1,000 ML IV SCH ×2 (08:43→21:41)
[2021-06-20] MEDS: NIFEdipine XL 60 MG TAB PO SCH (08:46)
[2021-06-20] MEDS: Metoprolol Tartrate 50 MG TAB PO SCH ×2 (08:46→21:40)
[2021-06-20] MEDS: Enoxaparin Sodium 30 MG/0.3 ML SYRINGE SC SCH (08:46)
[2021-06-20] MEDS: Aspirin 81 mg Enteric Coated Tablet PO SCH (08:46)
[2021-06-20] MEDS ORDERED: levETIRAcetam in NS 1,000 MG in Premix Bag 1 BAG IVPB SCH ×2 (09:00→16:00)
[2021-06-20] MEDS ORDERED: Lorazepam 2 MG/ML VIAL SLOW IVP SCH (14:45)
[2021-06-20] MEDS ORDERED: HYDROcodone/Acetaminophen 5/325 mg Tablet PO PRN (15:22)
[2021-06-20] MEDS ORDERED: Morphine 2 MG/ML VIAL SLOW IVP PRN (15:22)
[2021-06-20] MEDS: Fosphenytoin Sodium 200 MG in Sodium Chloride 0.9% 50 ML IVPB SCH (19:09)
[2021-06-20] MEDS: Atorvastatin Calcium 40 MG TAB PO SCH (21:40)
[2021-06-20] MEDS: levETIRAcetam in NS 1,500 MG in Premix Bag 1 BAG IVPB SCH (21:41)
[2021-06-21] MEDS: Lorazepam 2 MG/ML VIAL SLOW IVP PRN ×2 (02:31→18:29)
[2021-06-21] MEDS ORDERED: levETIRAcetam in NS 1,500 MG in Premix Bag 1 BAG IVPB SCH (04:00)
[2021-06-21 05:17] LABS: #Basophils 0.1 thou/uL (0.0-0.2); #Eosinphils 0.1 thou/uL (0.0-0.7); #Lymphocytes 1.9 thou/uL (1.20-3.40); #Monocytes 1.3 thou/uL (0.11-0.59); #Neutrophils 8.8 thou/uL (1.40-6.50); %Basophils 0.7 % (0.0-1.0); %Eosinophils 0.7 % (0.0-10.0); %Lymphocytes 15.5 % (21.0-51.0); %Monocytes 10.5 % (0.0-10.0); %Neutrophils 72.5 % (42.0-75.0); Hemoglobin 11.5 g/dL (14.0-18.0); Mean Corpuscular HGB CONC 31.8 g/dL (32.0-36.0); Mean Platelet Volume 8.7 fL (7.4-10.4); Platelet Count 175 thou/uL (130-400); RBC Distribution Width 12.5 % (11.5-14.5); White Blood Cell (WBC) Count 12.2 thou/uL (4.8-10.8)
[2021-06-21] MEDS: Fosphenytoin Sodium 200 MG in Sodium Chloride 0.9% 50 ML IVPB SCH ×2 (05:29→18:28)
[2021-06-21 05:36] LABS: Anion Gap 15 mmol/L (10-20); BUN (Urea Nitrogen) 21 mg/dL (8.4-25.7); Calc. Creatinine Clearance 37 mL/min (70-130); Calcium 8.7 mg/dL (7.8-10.44); Carbon Dioxide 26 mmol/L (23-31); Chloride 104 mmol/L (98-107); Cholesterol 141 mg/dl (< 200 Desired); Dilantin 13.1 ug/mL (10.0-20.0); Glucose 111 mg/dL (83-110); HDL Cholesterol 69 mg/dL (>60 Neg Risk); LDL Cholesterol, Calculated 60 mg/dL; Sodium 140 mmol/L (136-145); Triglycerides 60 mg/dL (Less than 150)
[2021-06-21] MEDS: levETIRAcetam in NS 1,500 MG in Premix Bag 1 BAG IVPB SCH ×2 (09:33→20:26)
[2021-06-21] MEDS: Enoxaparin Sodium 30 MG/0.3 ML SYRINGE SC SCH (09:33)
[2021-06-21] MEDS: Aspirin 81 mg Enteric Coated Tablet PO SCH (10:21)
[2021-06-21] MEDS: Metoprolol Tartrate 50 MG TAB PO SCH ×2 (10:22→21:08)
[2021-06-21] MEDS: NIFEdipine XL 60 MG TAB PO SCH (10:22)
[2021-06-21] MEDS: Sodium Chloride 0.9% 1,000 ML IV SCH (16:20)
[2021-06-21] MEDS: Atorvastatin Calcium 40 MG TAB PO SCH (21:08)
[2021-06-22] MEDS: Sodium Chloride 0.9% 1,000 ML IV SCH ×3 (04:45→22:05)
[2021-06-22] MEDS: Fosphenytoin Sodium 200 MG in Sodium Chloride 0.9% 50 ML IVPB SCH ×2 (04:45→18:25)
[2021-06-22] MEDS: Lorazepam 2 MG/ML VIAL SLOW IVP PRN ×5 (08:30→22:56)
[2021-06-22] MEDS: Enoxaparin Sodium 30 MG/0.3 ML SYRINGE SC SCH (08:50)
[2021-06-22] MEDS: levETIRAcetam in NS 1,500 MG in Premix Bag 1 BAG IVPB SCH ×2 (08:50→21:13)
[2021-06-22] MEDS: Metoprolol Tartrate 50 MG TAB PO SCH ×2 (11:48→21:15)
[2021-06-22] MEDS: NIFEdipine XL 60 MG TAB PO SCH (11:48)
[2021-06-22] MEDS: Aspirin 81 mg Enteric Coated Tablet PO SCH (11:48)
[2021-06-22 19:18] LABS: #Eosinphils 0.2 thou/uL (0.0-0.7); #Lymphocytes 1.6 thou/uL (1.20-3.40); #Neutrophils 6.1 thou/uL (1.40-6.50); %Basophils 0.5 % (0.0-1.0); %Eosinophils 2.1 % (0.0-10.0); %Monocytes 11.5 % (0.0-10.0); %Neutrophils 67.8 % (42.0-75.0); Hemoglobin 10.4 g/dL (14.0-18.0); Mean Corpuscular HGB CONC 33.3 g/dL (32.0-36.0); Mean Corpuscular Hemoglobin 33.8 pg (27.0-31.0); Mean Platelet Volume 8.5 fL (7.4-10.4); Platelet Count 148 thou/uL (130-400); RBC Distribution Width 12.5 % (11.5-14.5); Red Blood Cell (RBC) Count 3.08 mill/uL (4.70-6.10)
[2021-06-22 19:42] LABS: Anion Gap 16 mmol/L (10-20); BUN (Urea Nitrogen) 28 mg/dL (8.4-25.7); Calc. Creatinine Clearance 37 mL/min (70-130); Calcium 8.3 mg/dL (7.8-10.44); Carbon Dioxide 22 mmol/L (23-31); Chloride 109 mmol/L (98-107); Glucose 120 mg/dL (83-110); Potassium 4.6 mmol/L (3.5-5.1); Sodium 142 mmol/L (136-145)
[2021-06-22] MEDS: Atorvastatin Calcium 40 MG TAB PO SCH (21:14)
[2021-06-23] MEDS: Fosphenytoin Sodium 200 MG in Sodium Chloride 0.9% 50 ML IVPB SCH ×2 (04:53→16:23)
[2021-06-23 06:33] LABS: Anion Gap 16 mmol/L (10-20); BUN (Urea Nitrogen) 29 mg/dL (8.4-25.7); Calc. Creatinine Clearance 36 mL/min (70-130); Calcium 8.4 mg/dL (7.8-10.44); Carbon Dioxide 22 mmol/L (23-31); Chloride 110 mmol/L (98-107); Glucose 117 mg/dL (83-110); Potassium 4.5 mmol/L (3.5-5.1); Sodium 143 mmol/L (136-145)
[2021-06-23] MEDS: Metoprolol Tartrate 50 MG TAB PO SCH ×2 (07:58→21:01)
[2021-06-23] MEDS: NIFEdipine XL 60 MG TAB PO SCH (07:58)
[2021-06-23] MEDS: Aspirin 81 mg Enteric Coated Tablet PO SCH (07:58)
[2021-06-23] MEDS: Enoxaparin Sodium 30 MG/0.3 ML SYRINGE SC SCH (08:48)
[2021-06-23] MEDS: levETIRAcetam in NS 1,500 MG in Premix Bag 1 BAG IVPB SCH ×2 (08:48→23:24)
[2021-06-23] MEDS: Sodium Chloride 0.9% 1,000 ML IV SCH (12:10)
[2021-06-23] MEDS: Lorazepam 2 MG/ML VIAL SLOW IVP PRN (15:25)
[2021-06-23] MEDS ORDERED: Ketorolac Tromethamine 30 MG/ML VIAL IVP PRN (16:05)
[2021-06-23] MEDS ORDERED: Ketorolac Tromethamine 30 MG/ML VIAL IVP SCH (16:15)
[2021-06-23] MEDS ORDERED: Lorazepam 2 MG/ML VIAL SLOW IVP PRN (17:46)
[2021-06-23] MEDS: Atorvastatin Calcium 40 MG TAB PO SCH (21:01)
[2021-06-23] MEDS ORDERED: hydrOXYzine 25 MG TAB PO SCH (22:01)
[2021-06-23] MEDS: Sterile Water 10 ML VIAL FS PRN (23:25)
[2021-06-23] MEDS: Ziprasidone 20 MG VIAL IM PRN (23:25)
[2021-06-24] MEDS: Ziprasidone 20 MG VIAL IM PRN ×3 (03:01→20:50)
[2021-06-24] MEDS: Sterile Water 10 ML VIAL FS PRN ×2 (03:01→10:12)
[2021-06-24 06:09] LABS: Anion Gap 17 mmol/L (10-20); BUN (Urea Nitrogen) 32 mg/dL (8.4-25.7); Calc. Creatinine Clearance 34 mL/min (70-130); Carbon Dioxide 20 mmol/L (23-31); Chloride 112 mmol/L (98-107); Potassium 4.4 mmol/L (3.5-5.1); Sodium 145 mmol/L (136-145)
[2021-06-24 06:10] LABS: Calcium 8.8 mg/dL (7.8-10.44); Glucose 132 mg/dL (83-110)
[2021-06-24] MEDS: Fosphenytoin Sodium 200 MG in Sodium Chloride 0.9% 50 ML IVPB SCH ×2 (06:10→17:19)
[2021-06-24] MEDS: Sodium Chloride 0.9% 1,000 ML IV SCH ×3 (06:10→18:13)
[2021-06-24] MEDS: Aspirin 81 mg Enteric Coated Tablet PO SCH ×2 (09:40→09:48)
[2021-06-24] MEDS: Enoxaparin Sodium 30 MG/0.3 ML SYRINGE SC SCH (09:41)
[2021-06-24] MEDS: Metoprolol Tartrate 50 MG TAB PO SCH ×3 (09:41→19:43)
[2021-06-24] MEDS: NIFEdipine XL 60 MG TAB PO SCH ×2 (09:42→09:51)
[2021-06-24] MEDS: levETIRAcetam in NS 1,500 MG in Premix Bag 1 BAG IVPB SCH ×2 (10:12→20:50)
[2021-06-24 17:15] LABS: Actual Bicarbonate (HCO3a) 22.2 mEq/L (22-28); Base Excess (BEa) -4.4 mEq/L (-2.0 to +3.0); CO2 Tension 47.5 mmHg (35.0-45.0); Carboxyhemoglobin (COHb) 0.4 gm% (0.0-3.0); Hemoglobin (Hb) 10.8 g/dL (14.0-18.0); Potassium - ABG Lab 4.01 mmol/L (3.70-5.30); pH, Arterial 7.29 (7.35-7.45)
[2021-06-24 17:16] LABS: ALV-art Gradient 107.785 mmHg (0-20); Puncture Site RBA
[2021-06-24] MEDS: Atorvastatin Calcium 40 MG TAB PO SCH (19:42)
[2021-06-25] MEDS: Sodium Chloride 0.9% 1,000 ML IV SCH ×2 (04:39→15:08)
[2021-06-25] MEDS: Fosphenytoin Sodium 200 MG in Sodium Chloride 0.9% 50 ML IVPB SCH ×2 (05:37→17:20)
[2021-06-25 06:48] LABS: Anion Gap 22 mmol/L (10-20); BUN (Urea Nitrogen) 34 mg/dL (8.4-25.7); Calc. Creatinine Clearance 36 mL/min (70-130); Calcium 8.2 mg/dL (7.8-10.44); Carbon Dioxide 14 mmol/L (23-31); Chloride 115 mmol/L (98-107); Glucose 117 mg/dL (83-110); Potassium 5.7 mmol/L (3.5-5.1); Sodium 145 mmol/L (136-145)
[2021-06-25] MEDS: Enoxaparin Sodium 30 MG/0.3 ML SYRINGE SC SCH (09:30)
[2021-06-25] MEDS: Aspirin 300 MG Suppository PR SCH (09:30)
[2021-06-25 09:32] LABS: #Eosinphils 0.1 thou/uL (0.0-0.7); #Lymphocytes 1.2 thou/uL (1.20-3.40); #Monocytes 1.2 thou/uL (0.11-0.59); #Neutrophils 9.2 thou/uL (1.40-6.50); %Basophils 0.3 % (0.0-1.0); %Eosinophils 0.5 % (0.0-10.0); %Lymphocytes 10.2 % (21.0-51.0); %Monocytes 10.6 % (0.0-10.0); %Neutrophils 78.3 % (42.0-75.0); Hemoglobin 10.7 g/dL (14.0-18.0); Mean Corpuscular HGB CONC 33.3 g/dL (32.0-36.0); Platelet Count 154 thou/uL (130-400); Red Blood Cell (RBC) Count 3.13 mill/uL (4.70-6.10); White Blood Cell (WBC) Count 11.7 thou/uL (4.8-10.8)
[2021-06-25] MEDS: levETIRAcetam in NS 1,500 MG in Premix Bag 1 BAG IVPB SCH (09:33)
[2021-06-25] MEDS: NIFEdipine XL 60 MG TAB PO SCH (09:45)
[2021-06-25] MEDS: Metoprolol Tartrate 50 MG TAB PO SCH ×2 (09:45→21:26)
[2021-06-25] MEDS ORDERED: Furosemide 20 MG/2 ML VIAL SLOW IVP SCH (16:15)
[2021-06-25] MEDS ORDERED: levETIRAcetam in NS 750 MG in Premix Bag 1 BAG IVPB SCH (18:00)
[2021-06-25] MEDS: Amino Acids 4.25 %/Dextrose 5% 1,000 ML IV SCH (18:18)
[2021-06-25] MEDS: Atorvastatin Calcium 40 MG TAB PO SCH (21:26)
[2021-06-26] MEDS: Sodium Chloride 0.9% 1,000 ML IV SCH ×3 (00:59→23:06)
[2021-06-26] MEDS: Fosphenytoin Sodium 200 MG in Sodium Chloride 0.9% 50 ML IVPB SCH ×2 (06:07→16:24)
[2021-06-26] MEDS ORDERED: Amino Acids 4.25 %/Dextrose 5% 2,000 ML BAG IV SCH (09:00)
[2021-06-26] MEDS: Aspirin 300 MG Suppository PR SCH (09:22)
[2021-06-26] MEDS: Enoxaparin Sodium 30 MG/0.3 ML SYRINGE SC SCH (09:22)
[2021-06-26] MEDS: Amino Acids 4.25 %/Dextrose 5% 1,000 ML IV SCH (09:23)
[2021-06-26] MEDS: Metoprolol Tartrate 50 MG TAB PO SCH ×2 (09:24→22:14)
[2021-06-26] MEDS: NIFEdipine XL 60 MG TAB PO SCH (09:24)
[2021-06-26 15:15] LABS: #Eosinphils 0.1 thou/uL (0.0-0.7); #Lymphocytes 0.9 thou/uL (1.20-3.40); #Monocytes 0.9 thou/uL (0.11-0.59); #Neutrophils 7.7 thou/uL (1.40-6.50); %Basophils 0.1 % (0.0-1.0); %Eosinophils 0.6 % (0.0-10.0); %Monocytes 9.6 % (0.0-10.0); %Neutrophils 80.7 % (42.0-75.0); Hemoglobin 10.6 g/dL (14.0-18.0); Mean Corpuscular HGB CONC 30.7 g/dL (32.0-36.0); Mean Corpuscular Hemoglobin 32.5 pg (27.0-31.0); Mean Platelet Volume 8.8 fL (7.4-10.4); Platelet Count 175 thou/uL (130-400); RBC Distribution Width 13.5 % (11.5-14.5); Red Blood Cell (RBC) Count 3.26 mill/uL (4.70-6.10); White Blood Cell (WBC) Count 9.6 thou/uL (4.8-10.8)
[2021-06-26 15:34] LABS: MDiff Complete? YES; Macrocytosis SLIGHT = 6-15 cells (100X) (0-5/hpf); Platelet Morphology Comment Appears Adequate; Polychromasia SLIGHT = 2-3 cells (100X) (0-2/hpf)
[2021-06-26 15:42] LABS: Anion Gap 12 mmol/L (10-20); BUN (Urea Nitrogen) 48 mg/dL (8.4-25.7); Calc. Creatinine Clearance 35 mL/min (70-130); Calcium 8.4 mg/dL (7.8-10.44); Carbon Dioxide 22 mmol/L (23-31); Chloride 117 mmol/L (98-107); Glucose 126 mg/dL (83-110); Potassium 4.4 mmol/L (3.5-5.1); Sodium 147 mmol/L (136-145)
[2021-06-26] MEDS: Atorvastatin Calcium 40 MG TAB PO SCH (22:14)
[2021-06-26] MEDS: Ziprasidone 20 MG VIAL IM PRN (22:25)
[2021-06-26] MEDS ORDERED: Morphine 2 MG/ML VIAL SLOW IVP SCH (23:59)
[2021-06-27] MEDS: Amino Acids 4.25 %/Dextrose 5% 1,000 ML IV SCH (03:13)
[2021-06-27] MEDS ORDERED: Sodium Bicarb 50 MEQ/50 ML Abboject 8.4% SYRINGE ONE (05:20)
[2021-06-27] MEDS ORDERED: EPINEPHrine 1 MG/10 ML Abboject SYRINGE ONE (05:20)
[2021-06-27 05:32] VITALS: BP 112/56; TEMP 96.9
== END 2021-06-27 08:50 | disposition expired | DRG 100 ==
LOC: ERS 21:00 → ERHOLD 22:26 → 2SE 06-20 02:54 → 3SE 06-20 18:37
PROVIDERS: ADMIT Student in an Organized Health Care Education/Training Program; ATTEND Family Medicine
PROC: 5A12012 Performance of Cardiac Output, Single, Manual (ICD-10-PCS; principal; 2021-06-27)
PROC: 0BH17EZ Insertion of Endotracheal Airway into Trachea, Via Natural or Artificial Opening (ICD-10-PCS; 2021-06-27)
PROC: 3E033XZ Introduction of Vasopressor into Peripheral Vein, Percutaneous Approach (ICD-10-PCS; 2021-06-27)
DX: G40.109 Localization-related (focal) (partial) symptomatic epilepsy and epileptic syndromes with simple partial seizures, not intractable, without status epilepticus (principal); G93.41 Metabolic encephalopathy; J96.01 Acute respiratory failure with hypoxia; N18.4 Chronic kidney disease, stage 4 (severe); I69.351 Hemiplegia and hemiparesis following cerebral infarction affecting right dominant side; I16.1 Hypertensive emergency; N17.9 Acute kidney failure, unspecified; N25.81 Secondary hyperparathyroidism of renal origin; F05 Delirium due to known physiological condition; E87.2 Acidosis; Z20.822 Contact with and (suspected) exposure to COVID-19; G47.33 Obstructive sleep apnea (adult) (pediatric); G62.9 Polyneuropathy, unspecified; F17.210 Nicotine dependence, cigarettes, uncomplicated; H54.8 Legal blindness, as defined in USA; I12.9 Hypertensive chronic kidney disease with stage 1 through stage 4 chronic kidney disease, or unspecified chronic kidney disease; F41.9 Anxiety disorder, unspecified; K21.9 Gastro-esophageal reflux disease without esophagitis; J43.9 Emphysema, unspecified; I07.1 Rheumatic tricuspid insufficiency; Z53.20 Procedure and treatment not carried out because of patient's decision for unspecified reasons; I46.8 Cardiac arrest due to other underlying condition; R45.1 Restlessness and agitation; E87.5 Hyperkalemia; Z90.49 Acquired absence of other specified parts of digestive tract; Z90.5 Acquired absence of kidney; Z78.1 Physical restraint status; Z85.528 Personal history of other malignant neoplasm of kidney; Z95.0 Presence of cardiac pacemaker; Z98.890 Other specified postprocedural states; Z88.0 Allergy status to penicillin; Z88.2 Allergy status to sulfonamides; Z79.899 Other long term (current) drug therapy; Z79.01 Long term (current) use of anticoagulants; Z79.82 Long term (current) use of aspirin
CPT/HCPCS: 0241U; 36415; 36416; 36600; 70450; 70496; 70498; 80048; 80053; 80061; 80185; 82140; 82550; 82805; 84443; 84484; 85025; 85610; 85730; 93005; 93306; 94640; 95712; 95816; 95819; 95957; J0171; J1650; J1885; J1940; J1953; J2060; J2270; J3486; J3490; J7050; J7620; Q2009; Q9967